=== PATIENT | female | born 1970 | race African-American/Black ===

== ENCOUNTER 2018-09-14 00:45 | Emergency (ER) | payer BC, OTHER ==
[2018-09-14 02:28] LABS: Urine Bacteria <20 /HPF (<20); Urine Culture Reflex Order REFLEXED; Urine RBC <5 /HPF (NONE SEEN)
[2018-09-14 02:29] LABS: Urine Blood NEGATIVE (NEG); Urine Glucose NEGATIVE (NEG); Urine Protein NEGATIVE (NEG); Urine Specific Gravity 1.025 (1.005-1.030)
--- NOTE | 2018-09-14 02:34 | EDPHYS ---
Physician Documentation [facility] Name: Melissa Man Age: 48 yrs Sex: Female : 1970 Arrival Date: 09/14/2018 Time: 00:52 Bed 20 Private MD: ED Physician Jama Conteh HPI: 09/14 01:15 This 48 yrs old Black Female presents to ER via Ambulatory with complaints of Urinary cp Problem. 01:15 The patient presents with urinary symptoms, dysuria, vaginal discharge, that is white cp discharge. 01:15 Onset: The symptoms/episode began/occurred 3 day(s) ago. Associated signs and symptoms: cp Pertinent positives: suprapubic pain, Pertinent negatives: constipation, diarrhea, fever, hematuria, vaginal bleeding. Severity of symptoms: in the emergency department the symptoms are unchanged, despite home interventions. 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 - Social history:: Smoking status: Patient/guardian denies using tobacco, Patient/guardian denies using street drugs, IV drugs. - Ebola Screening: : Patient negative for fever greater than or equal to 101.5 degrees Fahrenheit, and additional compatible Ebola Virus Disease symptoms Patient denies exposure to infectious person Patient denies travel to an Ebola-affected area in the 21 days before illness onset. ROS: 01:20 Constitutional: Negative for body aches, chills, fever, poor PO intake. cp 01:20 Eyes: Negative for injury, pain, redness, and discharge. cp 01:20 ENT: Negative for drainage from ear(s), ear pain, sore throat, difficulty swallowing, difficulty handling secretions. 01:20 Cardiovascular: Negative for chest pain. 01:20 Respiratory: Negative for cough. 01:20 Abdomen/GI: Positive for abdominal pain, of the suprapubic area, Negative for nausea, vomiting, and diarrhea, constipation, black/tarry stool, rectal bleeding. 01:20 Back: Negative for pain at rest, pain with movement. 01:20 : Positive for burning with urination, vaginal discharge, Negative for flank pain, vaginal bleeding. 01:20 All other systems are negative. Exam: 01:30 Constitutional: The patient appears in no acute distress, alert, awake, non-toxic, well cp developed, well nourished. 01:30 Head/Face: Normocephalic, atraumatic. cp 01:30 Eyes: Periorbital structures: appear normal, Conjunctiva: normal, no exudate, no injection, Lids and lashes: appear normal, bilaterally. 01:30 ENT: External ear(s): are unremarkable, Nose: is normal, Mouth: is normal. 01:30 Chest/axilla: Inspection: normal. 01:30 Cardiovascular: Rate: normal. 01:30 Respiratory: the patient does not display signs of respiratory distress. 01:30 Abdomen/GI: Inspection: abdomen appears normal. 01:30 Back: pain, is absent. Vital Signs: 01:20 BP 127 / 90; Pulse 75; Resp 16 S; Temp 98.8(O); Pulse Ox 100% on R/A; Weight 68.04 kg ao (R); Height 5 ft. 0 in. (152.40 cm); Pain 5/10; 02:51 BP 123 / 87; Pulse 72; Resp 18; Pulse Ox 100% on R/A; ao 01:20 Body Mass Index 29.29 (68.04 kg, 152.40 cm) ao MDM: 01:07 Patient medically screened. cp 02:33 Data reviewed: vital signs, nurses notes, lab test result(s), urinalysis. cp 02:33 Differential diagnosis: UTI, pyelonephritis, vaginitis. Counseling: I had a detailed cp discussion with the patient and/or guardian regarding: the historical points, exam findings, and any diagnostic results supporting the discharge/admit diagnosis, lab results, to return to the emergency department if symptoms worsen or persist or if there are any questions or concerns that arise at home. 09/14 01:16 Order name: Urine Microscopic Only; Complete Time: 02:32 ao 09/14 02:32 Interpretation: Normal except: UWBC 5-10. cp 09/14 01:18 Order name: Urine Dipstick--Ancillary (enter results); Complete Time: 02:32 mw2 09/14 01:18 Order name: Urine --Ancillary (enter results); Complete Time: 02:32 mw2 09/14 02:33 Order name: Urine Culture EDOH 09/14 01:08 Order name: Urine Dipstick-Ancillary (obtain specimen); Complete Time: 01:27 cp 09/14 01:08 Order name: Urine Test (obtain specimen); Complete Time: 01:27 cp Administered Medications: 02:47 Drug: Bactrim (160 mg-800 mg (DS) 1 tablet Route: PO; ao 02:53 Follow up: Response: No adverse reaction ao Disposition: 09/14/18 02:33 Discharged to Home. Impression: Urinary tract infection, site not specified. - Condition is Stable. - Discharge Instructions: Urinary Tract Infection, Adult. - Prescriptions for Pyridium 200 mg Oral Tablet - take 1 tablet by ORAL route every 8 hours for 2 days; 6 tablet. Bactrim DS 800- 160 mg Oral Tablet - take 1 tablet by ORAL route every 12 hours for 3 days; 6 tablet. - Medication Reconciliation Form, Thank You Letter, Antibiotic Education, Prescription Opioid Use, Work release form form. - Follow up: Private Physician; When: 2 - 3 days; Reason: Worsening of condition. - Problem is new. - Symptoms are unchanged. Signatures: Dispatcher [employer] EDOH Ramonita, ELADIA Martinez cp, Alex RN RN ao Corrections: (The following items were deleted from the chart) 02:33 01:20 UA MICROSCOPIC+U.LAB.BRZ ordered. [facility] EDOH 02:53 02:33 09/14/2018 02:33 Discharged to Home. Impression: Urinary tract infection, site ao not specified. Condition is Stable. Forms are Medication Reconciliation Form, Thank You Letter, Antibiotic Education, Prescription Opioid Use. Follow up: Private Physician; When: 2 - 3 days; Reason: Worsening of condition. Problem is new. Symptoms are unchanged. cp
--- NOTE | 2018-09-14 02:34 | ER ---
Nurse's Notes [facility] Name: Melissa Man Age: 48 yrs Sex: Female : 1970 Arrival Date: 09/14/2018 Time: 00:52 Bed 20 Private MD: Diagnosis: Urinary tract infection, site not specified Presentation: 09/14 01:18 Presenting complaint: Patient states: Had UTI in the past and report similar symptoms. ao Patient report urinary frequency, burning and white discharge. Transition of care: patient was not received from another setting of care. Onset of symptoms is unknown. Risk Assessment: Do you want to hurt yourself or someone else? Patient reports no desire to harm self or others. Initial Sepsis Screen: Does the patient meet any 2 criteria? No. Patient's initial sepsis screen is negative. Does the patient have a suspected source of infection? No. Patient's initial sepsis screen is negative. Care prior to arrival: None. 01:18 Method Of Arrival: Ambulatory ao 01:18 Acuity: LISETTE 4 ao ON CALL: 01:20 LMP N/A - Irregular menses ao Historical: - Allergies: 01:23 PENICILLINS; ao - Home Meds: 01:23 None [Active]; ao - PMHx: 01:23 UTI; Hypothyroidism; Fatty liver; ao - PSHx: 01:23 ; ao - Immunization history:: Adult Immunizations unknown. - Social history:: Smoking status: Patient/guardian denies using tobacco, Patient/guardian denies using street drugs, IV drugs. - Ebola Screening: : Patient negative for fever greater than or equal to 101.5 degrees Fahrenheit, and additional compatible Ebola Virus Disease symptoms Patient denies exposure to infectious person Patient denies travel to an Ebola-affected area in the 21 days before illness onset. Screenin:24 Abuse screen: Denies threats or abuse. Denies injuries from another. Nutritional ao screening: No deficits noted. Tuberculosis screening: No symptoms or risk factors identified. Fall Risk None identified. Assessment: 01:24 General: Appears in no apparent distress. comfortable, Behavior is calm, cooperative, ao appropriate for age. Pain: Complains of pain in abdomen. Neuro: Level of Consciousness is awake, alert, obeys commands, Oriented to person, place, time, situation, Appropriate for age Moves all extremities. Full function. Cardiovascular: Capillary refill Patient's skin is warm and dry. Respiratory: Airway is patent Respiratory effort is even, unlabored, Respiratory pattern is regular, symmetrical. GI: Abdomen is non-distended. : Reports burning with urination, pain urgency, urinary frequency, vaginal itching. EENT: No signs and/or symptoms were reported regarding the EENT system. Derm: No signs and/or symptoms reported regarding the dermatologic system. Musculoskeletal: No signs and/or symptoms reported regarding the musculoskeletal system. 02:19 Reassessment: Patient appears in no apparent distress at this time. Patient and/or ao family updated on plan of care and expected duration. Pain level reassessed. Waiting on urine microscopic. 02:51 Reassessment: Dc instructions given to patient. Patient agree with the POC and to ao follow up. Vital Signs: 01:20 BP 127 / 90; Pulse 75; Resp 16 S; Temp 98.8(O); Pulse Ox 100% on R/A; Weight 68.04 kg ao (R); Height 5 ft. 0 in. (152.40 cm); Pain 5/10; 02:51 BP 123 / 87; Pulse 72; Resp 18; Pulse Ox 100% on R/A; ao 01:20 Body Mass Index 29.29 (68.04 kg, 152.40 cm) ao ED Course: 00:52 Patient arrived in ED. es 01:05 Juan Shipman PA is PHCP. cp 01:05 Jama Conteh MD is Attending Physician. cp 01:16 Gunnar Rivera, SAMUEL is Primary Nurse. ao 01:20 Triage completed. ao 01:24 Arm band placed on right wrist. Patient placed in an exam room, on a stretcher, on ao air sampling and monitoring, Patient notified of wait time. 01:24 Patient has correct armband on for positive identification. Pulse ox on. NIBP on. ao 01:27 Urine Microscopic Only Sent. ao 02:52 No provider procedures requiring assistance completed. Patient did not have IV access ao during this emergency room visit. Administered Medications: 02:47 Drug: Bactrim (160 mg-800 mg (DS) 1 tablet Route: PO; ao 02:53 Follow up: Response: No adverse reaction ao Outcome: 02:33 Discharge ordered by . cp 02:52 Discharged to home ambulatory. ao 02:52 Condition: stable 02:52 Discharge instructions given to patient, Instructed on discharge instructions, follow up and referral plans. Demonstrated understanding of instructions, follow-up care, medications. 02:53 Patient left the ED. ao Signatures: Brandi Cao Corey, PA PA cp Ortiz, Alex, RN RN ao
[2018-09-14] MEDS ORDERED: SMZ./TMP. 800/160 MG TABLET ONE (02:59)
== END 2018-09-14 02:53 | disposition home or self-care (01) ==
LOC: ER 00:45
DX: N39.0 Urinary tract infection, site not specified (principal); E03.9 Hypothyroidism, unspecified; Z88.0 Allergy status to penicillin
CPT/HCPCS: 81003; 81015; 81025; 87086; 87088; 99283

== ENCOUNTER 2019-11-25 17:22 | Emergency (ER) | payer OTHER, SELFPAY ==
--- OUTSIDE RECORDS SUMMARY | 2019-11-25 17:25 | XMS REPORT | Summary of Care ---
:1970 Author Organization [facility] Address [address] [place] [address] Care Team Providers Name Role Phone Arik Rossi MD Primary Care Provider Reason for Visit Reason Comments Assessment Encounter Details Date Type Department Care Team Description 09/20/2019 Telephone [facility] Pediatric and Arik De Oliveira MD Assessment Adult Primary Care- [address] [place] [address] [place] [address], [phone] [address] [place] [address] Allergies Active Allergy Reactions Severity Noted Date Comments Nitrofurantoin Other - See comments 05/27/2018 Sever e myalgias Monohyd/M-Cryst Penicillins Hives 07/23/2015 documented as of this encounter (statuses as of 09/21/2019) Medications Medication Sig Dispensed Refills Start Date End Date Status levothyroxine 75 mcg Take 1 tablet by 90 tablet 1 07/05/2019 Active tabletIndications: mouth every Acquired hypothyroidism morning. documented as of this encounter (statuses as of 09/21/2019) Active Problems Problem Noted Date ALYCIA (obstructive sleep apnea) 07/08/2018 Arthritis of lumbar spine 06/28/2018 Screening for colorectal cancer 06/11/2018 Overview: Added automatically from request for sanjiv duffy [id number] Chronic insomnia 06/06/2018 Need for hepatitis A and B vaccination 06/02/2018 Overview: Schedule: 0, 1, and 6 months; Angelo shook diagnosis code: Fatty liver K76.0 Abnormal SPEP 06/02/2018 Hypercholesterolemia 05/05/2018 Obesity (BMI 30-39.9) 05/05/2018 History of Graves' disease 04/09/2018 Palpitations 04/09/2018 Prediabetes Postablative hypothyroidism Abnormal liver function tests Fatty liver Overview: "very mild" per Radiology report 04/2018 documented as of this encounter (statuses as of 09/21/2019) Immunizations Name Administration Dates Next Due TDAP 02/16/2015 documented as of this encounter Social History Tobacco Use Types Packs/Day Years Used Date Never Smoker Smokeless Tobacco: Never Used Alcohol Use Drinks/Week oz/Week Comments No Sex Assigned at Date Recorded Not on file documented as of this encounter Last Filed Vital Signs Not on filedocumented in this encounter Miscellaneous Notes Telephone Encounter - Qiana Sánchez - 09/21/2019 3:49 PM CDTCalled patient this morning Telephone Encounter - Saniya Swartz MA - 09/20/2019 3:08 PM CDT09/20/19 3:08 PM Routing to correct clinic. Saniya Swartz MA 09/20/2019 3:08 PM elephone Encounter - Lorene Gaffney - 09/20/2019 2:50 PM CDTPatient stating would like to speak with Dr. Rossi regarding her thyroid. Pt Schedule appointment. documented in this encounter Plan of Treatment Date Type Specialty Care Team Description 10/04/2019 Office Visit Family Medicine Hu Rossi MD [address] [place] [address] [phone] Health Maintenance Due Date Last Done Comments Depression Screening 1984 Breast Cancer Screening 06/08/2019 06/07/2018 (MAMMOGRAM) INFLUENZA VACCINE (#1) 2019 PAP SMEAR 05/31/2021 05/31/2018 Colorectal Cancer Screening 2022 DTaP,Tdap,and Td Vaccines (2 - Td) 02/16/2025 02/16/2015 PNEUMOCOCCAL 0-64 YEARS COMBINED Aged Out No longer eligible based on SERIES patient's age to complete this topic documented as of this encounter Results Not on filedocumented in this encounter
--- OUTSIDE RECORDS SUMMARY | 2019-11-25 17:26 | XMS REPORT | Summary of Care ---
:1970 Author Organization [facility] Address [address] [place] [address] Care Team Providers Name Role Phone Arik Rossi MD Primary Care Provider Encounter Details Date Type Department Care Team Description 09/22/2019 Patient Secure [facility] Pediatric Ariela Rossi, and Adult Primary Care- MD Laura [facility] [address] [place] [address], [address] [address] [place] [address] [phone] Allergies Active Allergy Reactions Severity Noted Date Comments Nitrofurantoin Other - See comments 05/27/2018 Sever e myalgias Monohyd/M-Cryst Penicillins Hives 07/23/2015 documented as of this encounter (statuses as of 09/23/2019) Medications Medication Sig Dispensed Refills Start Date End Date Status levothyroxine 75 mcg Take 1 tablet by 90 tablet 1 07/05/2019 Active tabletIndications: mouth every Acquired hypothyroidism morning. documented as of this encounter (statuses as of 09/23/2019) Active Problems Problem Noted Date ALYCIA (obstructive sleep apnea) 07/08/2018 Arthritis of lumbar spine 06/28/2018 Screening for colorectal cancer 06/11/2018 Overview: Added automatically from request for sanjiv duffy [id number] Chronic insomnia 06/06/2018 Need for hepatitis A and B vaccination 06/02/2018 Overview: Schedule: 0, 1, and 6 months; Additiona l diagnosis code: Fatty liver K76.0 Abnormal SPEP 06/02/2018 Hypercholesterolemia 05/05/2018 Obesity (BMI 30-39.9) 05/05/2018 History of Graves' disease 04/09/2018 Palpitations 04/09/2018 Prediabetes Postablative hypothyroidism Abnormal liver function tests Fatty liver Overview: "very mild" per Radiology report 04/2018 documented as of this encounter (statuses as of 09/23/2019) Immunizations Name Administration Dates Next Due TDAP 02/16/2015 documented as of this encounter Social History Tobacco Use Types Packs/Day Years Used Date Never Smoker Smokeless Tobacco: Never Used Alcohol Use Drinks/Week oz/Week Comments No Sex Assigned at Date Recorded Not on file documented as of this encounter Last Filed Vital Signs Not on filedocumented in this encounter Miscellaneous Notes Telephone Encounter - Valentina Oconnell - 09/23/2019 11:03 AM CDTLVMTRC to assist in scheduling patient with urgent care. elephone Encounter - Arik Rossi MD - 09/22/2019 11:59 AM CDTOffer urgent care appointment. documented in this encounter Plan of Treatment Date Type Specialty Care Team Description 10/04/2019 Office Visit Family Medicine Hu Rossi MD [address] [place] [phone] Health Maintenance Due Date Last Done [...]
--- NOTE | 2019-11-25 18:21 | EDPHYS ---
Physician Documentation [facility] Name: Melissa Man Age: 49 yrs Sex: Female : 1970 Arrival Date: 11/25/2019 Time: 17:26 Bed 14 Private MD: ED Physician Juan Lundberg HPI: 11/24 18:13 This 49 yrs old Black Female presents to ER via Ambulatory with complaints of Foreign kamaljit body In Vagina. 18:13 The patient presents with pelvic pain, possible retained tampoon. Onset: The kamaljit symptoms/episode began/occurred today. Modifying factors: The symptoms are alleviated by nothing, the symptoms are aggravated by nothing. Associated signs and symptoms: The patient has no apparent associated signs or symptoms. Severity of symptoms: At their worst the symptoms were mild, in the emergency department the symptoms are unchanged. The patient is sexually active. Historical: - Allergies: 17:43 PENICILLINS; ll1 - PMHx: 17:43 Hypothyroidism; fatty liver; UTI; ll1 - PSHx: 17:43 ; ll1 - Immunization history:: Flu vaccine is not up to date. - Social history:: Smoking status: Patient denies any tobacco usage or history of. - Family history:: not pertinent. ROS: 18:13 Constitutional: Negative for fever, chills, and weight loss, Eyes: Negative for injury, kamaljit pain, redness, and discharge, ENT: Negative for injury, pain, and discharge, Neck: Negative for injury, pain, and swelling, Cardiovascular: Negative for chest pain, palpitations, and edema, Respiratory: Negative for shortness of breath, cough, wheezing, and pleuritic chest pain, Abdomen/GI: Negative for abdominal pain, nausea, vomiting, diarrhea, and constipation, Back: Negative for injury and pain, MS/Extremity: Negative for injury and deformity, Skin: Negative for injury, rash, and discoloration, Neuro: Negative for headache, weakness, numbness, tingling, and seizure, Psych: Negative for depression, anxiety, suicide ideation, homicidal ideation, and hallucinations, Allergy/Immunology: Negative for hives, rash, and allergies, Endocrine: Negative for neck swelling, polydipsia, polyuria, polyphagia, and marked weight changes. 18:13 : Positive for pelvic pain. Exam: 18:13 Constitutional: This is a well developed, well nourished patient who is awake, alert, kamaljit and in no acute distress. Head/Face: Normocephalic, atraumatic. Eyes: Pupils equal round and reactive to light, extra-ocular motions intact. Lids and lashes normal. Conjunctiva and sclera are non-icteric and not injected. Cornea within normal limits. Periorbital areas with no swelling, redness, or edema. ENT: Nares patent. No nasal discharge, no septal abnormalities noted. Tympanic membranes are normal and external auditory canals are clear. Oropharynx with no redness, swelling, or masses, exudates, or evidence of obstruction, uvula midline. Mucous membranes moist. Neck: Trachea midline, no thyromegaly or masses palpated, and no cervical lymphadenopathy. Supple, full range of motion without nuchal rigidity, or vertebral point tenderness. No Meningismus. Chest/axilla: Normal chest wall appearance and motion. Nontender with no deformity. No lesions are appreciated. Cardiovascular: Regular rate and rhythm with a normal S1 and S2. No gallops, murmurs, or rubs. Normal PMI, no JVD. No pulse deficits. Respiratory: Lungs have equal breath sounds bilaterally, clear to auscultation and percussion. No rales, rhonchi or wheezes noted. No increased work of breathing, no retractions or nasal flaring. Abdomen/GI: Soft, non-tender, with normal bowel sounds. No distension or tympany. No guarding or rebound. No evidence of tenderness throughout. Back: No spinal tenderness. No costovertebral tenderness. Full range of motion. Pelvic Exam: Normal external genitalia. Speculum exam with closed cervical os, no discharge or bleeding noted. Bimanual exam with normal adnexa, no adnexal or cervical motion tenderness. Normal uterus. Skin: Warm, dry with normal turgor. Normal color with no rashes, no lesions, and no evidence of cellulitis. MS/ Extremity: Pulses equal, no cyanosis. Neurovascular intact. Full, normal range of motion. Neuro: Awake and alert, GCS 15, oriented to person, place, time, and situation. Cranial nerves II-XII grossly intact. Motor strength 5/5 in all extremities. Sensory grossly intact. Cerebellar exam normal. Normal gait. Psych: Awake, alert, with orientation to person, place and time. Behavior, mood, and affect are within normal limits. 18:13 : CVA tenderness, is absent, Pelvic Exam: External exam: is normal, Speculum exam: normal findings, no bleeding is noted, bimanual exam reveals normal findings, no cervical motion tenderness, os that is closed, Bladder: is normal, non-distended, non-tender. Vital Signs: 17:42 BP 122 / 92; Pulse 63; Resp 17; Temp 97.9; Pulse Ox 100% ; Weight 68.04 kg; Height 5 ll1 ft. 1 in. (154.94 cm); Pain 4/10; 17:42 Body Mass Index 28.34 (68.04 kg, 154.94 cm) ll1 MDM: 17:54 Patient medically screened. kamaljit 18:16 Differential diagnosis: kidney stone, nonspecific abdominal pain, urinary tract kamaljit infection. Data reviewed: vital signs, nurses notes, lab test result(s), urinalysis. Data interpreted: access rep: rate is 63 beats/min, rhythm is regular, Pulse oximetry: on room air is 100 %. Test interpretation: by ED physician or midlevel provider:. Counseling: I had a detailed discussion with the patient and/or guardian regarding: the historical points, exam findings, and any diagnostic results supporting the discharge/admit diagnosis. 11/24 18:12 Order name: Urine Dipstick-Ancillary (obtain specimen); Complete Time: 18:20 [facility] 11/24 18:12 Order name: Urine Test (obtain specimen); Complete Time: 18:20 [facility] 11/24 18:21 Order name: Urine Dipstick--Ancillary (enter results) 11/24 18:21 Order name: Urine --Ancillary (enter results) 11/24 18:12 Order name: Pelvic Exam Setup; Complete Time: 18:20 [facility] Administered Medications: No medications were administered Disposition: 11/25/19 18:20 Discharged to Home. Impression: Pelvic and perineal pain, Postmenopausal bleeding. - Condition is Stable. - Discharge Instructions: Pelvic Pain, Female, Pelvic Pain, Female, [id number]. - Prescriptions for Bactrim DS 800- 160 mg Oral Tablet - take 1 tablet by ORAL route every 12 hours for 7 days; 14 tablet. - Medication Reconciliation Form, Thank You Letter, Antibiotic Education, Prescription Opioid Use form. - Follow up: Private Physician; When: 2 - 3 days; Reason: Recheck today's complaints, Continuance of care, Re-evaluation by your physician. Follow up: Jennifer Salmeron; When: 2 - 3 days; Reason: Recheck today's complaints, Re-evaluation by your physician. - Problem is new. - Symptoms have improved. Signatures: Dispatcher [employer] [facility] Juan Lundberg MD MD cha Smirch, Shelby RN RN ss Ko Rayo RN RN ll1 Corrections: (The following items were deleted from the chart) 18:23 18:19 Urine Culture ordered. [facility] 18:43 18:20 11/25/2019 18:20 Discharged to Home. Impression: Pelvic and perineal pain; ss Postmenopausal bleeding. Condition is Stable. Discharge Instructions: Pelvic Pain, Female, Pelvic Pain, Female, [id number]. Prescriptions for Bactrim DS 800-160 mg Oral Tablet - take 1 tablet by ORAL route every 12 hours for 7 days; 14 tablet. and Forms are Medication Reconciliation Form, Thank You Letter, Antibiotic Education, Prescription Opioid Use. Follow up: Private Physician; When: 2 - 3 days; Reason: Recheck today's complaints, Continuance of care, Re-evaluation by your physician. Follow up: Jennifer Salmeron; When: 2 - 3 days; Reason: Recheck today's complaints, Re-evaluation by your physician. Problem is new. Symptoms have improved. kamaljit
--- NOTE | 2019-11-25 18:21 | ER ---
Nurse's Notes [facility] Name: Melissa Man Age: 49 yrs Sex: Female : 1970 Arrival Date: 11/25/2019 Time: 17:26 Bed 14 Private MD: Diagnosis: Pelvic and perineal pain;Postmenopausal bleeding Presentation: 11/24 17:42 Chief complaint: Patient states: Tampon stuck in vagina for 2 days. Slight pelvic pain ll1 today. Coronavirus screen: Client denies travel out of the [place] in the last 14 days. At this time, the client does not indicate any symptoms associated with coronavirus-19. The client reports previous COVID testing was negative. Ebola Screen: Patient denies travel to an Ebola-affected area in the 21 days before illness onset. Initial Sepsis Screen: Does the patient meet any 2 criteria? No. Patient's initial sepsis screen is negative. Does the patient have a suspected source of infection? Yes: Other: vaginal FB. Risk Assessment: Do you want to hurt yourself or someone else? Patient reports no desire to harm self or others. Onset of symptoms was November 24, 2019. 17:42 Method Of Arrival: Ambulatory ll1 17:42 Acuity: LISETTE 4 ll1 Historical: - Allergies: 17:43 PENICILLINS; ll1 - PMHx: 17:43 Hypothyroidism; fatty liver; UTI; ll1 - PSHx: 17:43 ; ll1 - Immunization history:: Flu vaccine is not up to date. - Social history:: Smoking status: Patient denies any tobacco usage or history of. - Family history:: not pertinent. Screenin:03 Abuse screen: Denies threats or abuse. Denies injuries from another. Nutritional ss screening: No deficits noted. Tuberculosis screening: Never had TB. Fall Risk None identified. Assessment: 18:04 General: Appears in no apparent distress. comfortable, Behavior is cooperative, ss anxious, Denies fever, feeling ill, fatigue, chills. Pain: Complains of pain in suprapubic area Pain currently is 4 out of 10 on a pain scale. Quality of pain is described as aching, Pain began 2-3 days ago. Is continuous. Neuro: Level of Consciousness is awake, alert, obeys commands, Oriented to person, place, time, situation. Cardiovascular: Capillary refill < 3 seconds is brisk in bilateral fingers. Respiratory: Airway is patent Respiratory effort is even, unlabored, Respiratory pattern is regular, symmetrical. GI: Patient currently denies diarrhea, nausea, vomiting. : Denies burning with urination, urinary frequency. Derm: Skin is intact, is healthy with good turgor, Skin is dry, Skin is pink, warm \T\ dry. normal. Vital Signs: 17:42 BP 122 / 92; Pulse 63; Resp 17; Temp 97.9; Pulse Ox 100% ; Weight 68.04 kg; Height 5 ll1 ft. 1 in. (154.94 cm); Pain 4/10; 17:42 Body Mass Index 28.34 (68.04 kg, 154.94 cm) ll1 ED Course: 17:26 Patient arrived in ED. mr 17:43 Triage completed. ll1 17:44 Arm band placed on Patient placed in an exam room, on a stretcher. ll1 17:45 Juan Lundberg MD is Attending Physician. [email or web address] 18:03 Mercy Ojeda, SAMUEL is Primary Nurse. ss 18:03 Patient has correct armband on for positive identification. Bed in low position. Call ss light in reach. Warm blanket given. 18:03 Patient maintains SpO2 saturation greater than 95% on room air. ss 18:04 Assist provider with pelvic exam: Set up pelvic tray. Performed by Juan Lundberg MD ss Patient tolerated well. No foreign body noted to be retained in vaginal canal. 18:20 Jennifer Salmeron MD is Referral Physician. [facility] 18:42 Patient did not have IV access during this emergency room visit. ss Administered Medications: No medications were administered Outcome: 18:20 Discharge ordered by . [facility] 18:42 Discharged to home ambulatory. 18:42 Condition: good 18:42 Discharge instructions given to patient, family, Instructed on discharge instructions, follow up and referral plans. medication usage, Demonstrated understanding of instructions, follow-up care, medications, Prescriptions given X 1. 18:43 Patient left the ED. ss Signatures: Juan Lundberg MD MD cha Rivera, Mary mr Mercy Ojeda, SAMUEL RN Ko Rayo RN RN 1
[2019-11-25 18:31] LABS: Urine Blood TRACE (NEG); Urine Glucose NEGATIVE (NEG); Urine Protein NEGATIVE (NEG); Urine Specific Gravity >1.030 (1.005-1.030)
[2019-11-25 18:49] VITALS: BP 122/92; TEMP 97.9; O2SAT 100
== END 2019-11-25 18:43 | disposition home or self-care (01) ==
LOC: ER 17:22
DX: N95.0 Postmenopausal bleeding (principal); Z88.0 Allergy status to penicillin
CPT/HCPCS: 81003; 81025; 99284

== ENCOUNTER 2020-07-24 20:14 | Emergency (ER) | payer SELFPAY ==
--- NOTE | 2020-07-24 21:26 | ER ---
Nurse's Notes [facility] Name: Melissa Man Age: 50 yrs Sex: Female : 1970 Arrival Date: 07/24/2020 Time: 20:17 Bed 26 Private MD: Diagnosis: Viral Syndrome;Otitis Media, Left Presentation: 07/24 20:22 Chief complaint: Patient states: cough and congestion x 10 days. Now ears feels clogged ca1 x 3 - 4 days. Denies fever. Denies N/V/D. Denies loss of appetite. Coronavirus screen: Client denies travel out of the [place] in the last 14 days. congestion, cough unrelated to allergies, Client presents with at least one sign or symptom that may indicate coronavirus-19. Standard/surgical mask placed on the client. Provider contacted for isolation considerations. The client reports previous COVID testing was negative. Date of collection: July 17, 2020. Ebola Screen: Patient negative for fever greater than or equal to 101.5 degrees Fahrenheit, and additional compatible Ebola Virus Disease symptoms Patient denies exposure to infectious person. Patient denies travel to an Ebola-affected area in the 21 days before illness onset. No symptoms or risks identified at this time. Initial Sepsis Screen: Does the patient meet any 2 criteria? No. Patient's initial sepsis screen is negative. Does the patient have a suspected source of infection? No. Patient's initial sepsis screen is negative. Risk Assessment: Do you want to hurt yourself or someone else? Patient reports no desire to harm self or others. Onset of symptoms was July 24, 2020. 20:22 Method Of Arrival: Ambulatory ca1 20:22 Acuity: LISETTE 3 ca1 HYDRAULIC SPINNER: 20:24 LMP N/A - Post-menopause ca1 Historical: - Allergies: 20:24 PENICILLINS; ca1 - Home Meds: 20:24 levothyroxine 75 mcg tab 1 tab once daily [Active]; ca1 - PMHx: 20:24 fatty liver; Hypothyroidism; UTI; ca1 - PSHx: 20:24 ; ca1 - Immunization history:: Client reports having NOT received the Covid vaccine. Flu vaccine is not up to date. - Social history:: Smoking status: Patient denies any tobacco usage or history of. Screenin:29 Abuse screen: Denies threats or abuse. Nutritional screening: No deficits noted. ap3 Tuberculosis screening: No symptoms or risk factors identified. Fall Risk None identified. Assessment: 20:45 General: Appears in no apparent distress. comfortable, Behavior is calm, cooperative, ap3 appropriate for age. Pain: Denies pain. Neuro: Level of Consciousness is awake, alert, obeys commands, Oriented to person, place, time, situation, Gait is steady, Speech is normal. Cardiovascular: Denies chest pain, shortness of breath, Capillary refill < 3 seconds. Respiratory: Reports cough that is non-productive, Airway is patent Respiratory effort is even, unlabored, Respiratory pattern is regular, symmetrical. GI: No signs and/or symptoms were reported involving the gastrointestinal system. : No signs and/or symptoms were reported regarding the genitourinary system. EENT: Reports nasal congestion nasal discharge that her left ear feels clogged up. Derm: No signs and/or symptoms reported regarding the dermatologic system. Vital Signs: 20:22 BP 128 / 94; Pulse 85; Resp 16 S; Temp 98.6(O); Pulse Ox 100% on R/A; Weight 68.04 kg ca1 (R); Height 5 ft. 1 in. (154.94 cm) (R); Pain 0/10; 20:47 BP 116 / 84; Pulse 79; Resp 16; Pulse Ox 99% on R/A; Pain 0/10; ap3 21:22 BP 119 / 78; Pulse 67; Resp 17; Pulse Ox 100% on R/A; Pain 0/10; ap3 20:22 Body Mass Index 28.34 (68.04 kg, 154.94 cm) ca1 ED Course: 20:17 Patient arrived in ED. bp1 20:23 Triage completed. ca1 20:24 Arm band placed on right wrist. ca1 20:29 Yana Chirinos, SAMUEL is Primary Nurse. ap3 20:29 Patient has correct armband on for positive identification. Bed in low position. Call ap3 light in reach. Pulse ox on. NIBP on. Door closed. Noise minimized. 20:41 Christ Talavera MD is Attending Physician. mh7 21:12 ED physician to see patient. ap3 21:25 Promise Godinez MD is Referral Physician. mh7 21:40 No provider procedures requiring assistance completed. Patient did not have IV access ap3 during this emergency room visit. Administered Medications: 21:21 Drug: Zithromax (azithromycin) 500 mg Route: PO; ap3 21:41 Follow up: Response: No adverse reaction ap3 21:21 Drug: Tylenol 1000 mg Route: PO; ap3 21:41 Follow up: Response: No adverse reaction ap3 Outcome: 21:26 Discharge ordered by . 7 21:40 Discharged to home ambulatory. ap3 21:40 Condition: good 21:40 Discharge instructions given to patient, Instructed on discharge instructions, follow up and referral plans. medication usage, Demonstrated understanding of instructions, follow-up care, medications. 21:40 Patient left the ED. ap3 Signatures: Yana Chirinos RN RN ap3 Heaven Gan RN RN ca1 Lori Ibarra Maurice, MD MD 7 Corrections: (The following items were deleted from the chart) 20:26 20:22 Coronavirus screen: Client denies travel out of the [place] in the last 14 days. ca1 congestion, cough unrelated to allergies, Client presents with at least one sign or symptom that may indicate coronavirus-19. Standard/surgical mask placed on the client. Provider contacted for isolation considerations. The client reports previous COVID testing was negative. ca1
--- NOTE | 2020-07-24 21:26 | EDPHYS ---
Physician Documentation [facility] Name: Melissa Man Age: 50 yrs Sex: Female : 1970 Arrival Date: 07/24/2020 Time: 20:17 Bed 26 Private MD: ED Physician Christ Talavera HPI: 07/24 21:14 This 50 yrs old Black Female presents to ER via Ambulatory with complaints of Runny mh7 Nose, Cough, Clogged Ear. 21:14 The patient or guardian reports cough, that is intermittent, described as mild, with no mh7 sputum, congestion, runny nose, ear pain. Onset: The symptoms/episode began/occurred 10 day(s) ago. Severity of symptoms: At their worst the symptoms were mild, 5 day(s) ago, in the emergency department the symptoms are unchanged. Modifying factors: The symptoms are alleviated by nothing, the symptoms are aggravated by nothing. 21:20 Associated signs and symptoms: Pertinent positives: earache, rhinorrhea, Pertinent mh7 negatives: chest pain, diarrhea, fever, nausea, sore throat, vomiting. States that she has had a negative COVID test in the past week.. DIRECTOR STAGE: 20:24 LMP N/A - Post-menopause ca1 Historical: - Allergies: 20:24 PENICILLINS; ca1 - Home Meds: 20:24 levothyroxine 75 mcg tab 1 tab once daily [Active]; ca1 - PMHx: 20:24 fatty liver; Hypothyroidism; UTI; ca1 - PSHx: 20:24 ; ca1 - Immunization history:: Client reports having NOT received the Covid vaccine. Flu vaccine is not up to date. - Social history:: Smoking status: Patient denies any tobacco usage or history of. ROS: 21:20 Constitutional: Negative for fever, chills, and weight loss, Eyes: Negative for injury, mh7 pain, redness, and discharge, Neck: Negative for injury, pain, and swelling, Cardiovascular: Negative for chest pain, palpitations, and edema, Abdomen/GI: Negative for abdominal pain, nausea, vomiting, diarrhea, and constipation, Back: Negative for injury and pain, : Negative for injury, bleeding, discharge, and swelling, MS/Extremity: Negative for injury and deformity, Skin: Negative for injury, rash, and discoloration, Neuro: Negative for headache, weakness, numbness, tingling, and seizure, Psych: Negative for depression, anxiety, suicide ideation, homicidal ideation, and hallucinations, Allergy/Immunology: Negative for hives, rash, and allergies, Endocrine: Negative for neck swelling, polydipsia, polyuria, polyphagia, and marked weight changes, Hematologic/Lymphatic: Negative for swollen nodes, abnormal bleeding, and unusual bruising. Exam: 21:20 Constitutional: This is a well developed, well nourished patient who is awake, alert, mh7 and in no acute distress. Head/Face: Normocephalic, atraumatic. Eyes: Pupils equal round and reactive to light, extra-ocular motions intact. Lids and lashes normal. Conjunctiva and sclera are non-icteric and not injected. Cornea within normal limits. Periorbital areas with no swelling, redness, or edema. 21:20 Neck: Trachea midline, no thyromegaly or masses palpated, and no cervical lymphadenopathy. Supple, full range of motion without nuchal rigidity, or vertebral point tenderness. No Meningismus. Chest/axilla: Normal chest wall appearance and motion. Nontender with no deformity. No lesions are appreciated. Cardiovascular: Regular rate and rhythm with a normal S1 and S2. No gallops, murmurs, or rubs. Normal PMI, no JVD. No pulse deficits. Respiratory: Lungs have equal breath sounds bilaterally, clear to auscultation and percussion. No rales, rhonchi or wheezes noted. No increased work of breathing, no retractions or nasal flaring. 21:20 Abdomen/GI: Soft, non-tender, with normal bowel sounds. No distension or tympany. No guarding or rebound. No evidence of tenderness throughout. Back: No spinal tenderness. No costovertebral tenderness. Full range of motion. Skin: Warm, dry with normal turgor. Normal color with no rashes, no lesions, and no evidence of cellulitis. MS/ Extremity: Pulses equal, no cyanosis. Neurovascular intact. Full, normal range of motion. Neuro: Awake and alert, GCS 15, oriented to person, place, time, and situation. Cranial nerves II-XII grossly intact. Motor strength 5/5 in all extremities. Sensory grossly intact. Cerebellar exam normal. Normal gait. Psych: Awake, alert, with orientation to person, place and time. Behavior, mood, and affect are within normal limits. 21:20 ENT: External ear(s): are unremarkable, Ear canal(s): are normal, clear, TM's: bulging, is not appreciated, dullness, on the left, erythema, that is mild, on the left, fluid levels, on the left, hemotympanum, is not appreciated, loss of bony landmarks, is not appreciated, rupture, is not appreciated, Examination of the other ear shows no obvious abnormality, Nose: is normal, Mouth: is normal, Posterior pharynx: is normal, airway is patent, Dental exam: normal, Voice: is normal, Breath odor: is normal. Vital Signs: 20:22 BP 128 / 94; Pulse 85; Resp 16 S; Temp 98.6(O); Pulse Ox 100% on R/A; Weight 68.04 kg ca1 (R); Height 5 ft. 1 in. (154.94 cm) (R); Pain 0/10; 20:47 BP 116 / 84; Pulse 79; Resp 16; Pulse Ox 99% on R/A; Pain 0/10; ap3 21:22 BP 119 / 78; Pulse 67; Resp 17; Pulse Ox 100% on R/A; Pain 0/10; ap3 20:22 Body Mass Index 28.34 (68.04 kg, 154.94 cm) ca1 MDM: 21:20 Differential Diagnosis: Bronchitis Upper Respiratory Infection Sinusitis Otitis Media mh7 Allergic Rhinitis Viral Syndrome. Data reviewed: vital signs, nurses notes. Data interpreted: Pulse oximetry: on room air is 100 %. Interpretation: normal. Counseling: I had a detailed discussion with the patient and/or guardian regarding: the historical points, exam findings, and any diagnostic results supporting the discharge/admit diagnosis, the need for outpatient follow up, an ENT specialist, to return to the emergency department if symptoms worsen or persist or if there are any questions or concerns that arise at home. Response to treatment: the patient's symptoms have markedly improved after treatment. 21:26 Patient medically screened. [facility] Administered Medications: 21:21 Drug: Zithromax (azithromycin) 500 mg Route: PO; ap3 21:41 Follow up: Response: No adverse reaction ap3 21:21 Drug: Tylenol 1000 mg Route: PO; ap3 21:41 Follow up: Response: No adverse reaction ap3 Disposition: 07/24/20 21:26 Discharged to Home. Impression: Viral Syndrome, Otitis Media, Left. - Condition is Stable. - Discharge Instructions: Otitis Media, Adult, [id number], Viral Respiratory Infection, [id number]. - Prescriptions for Zithromax Z- Jeff 250 mg Oral Tablet - take 1 tablet by ORAL route as directed for 5 days Day 1 - take two (2) tablets one time. Day 2, 3, 4 , 5 take one (1) tablet once daily.; 6 tablet. - Medication Reconciliation Form, Thank You Letter, Antibiotic Education, Prescription Opioid Use form. - Follow up: Private Physician; When: 2 - 3 days; Reason: Worsening of condition, Recheck today's complaints, Continuance of care, Re-evaluation by your physician. Follow up: Promise Godinez MD; When: 2 - 3 days; Reason: Worsening of condition, Recheck today's complaints. - Problem is new. - Symptoms have improved. Signatures: Yana Chirinos RN RN ap3 Heaven stanley RN RN ca1 Christ Talavera MD MD mh7 Corrections: (The following items were deleted from the chart) 21:40 21:26 07/24/2020 21:26 Discharged to Home. Impression: Viral Syndrome; Otitis Media, ap3 Left. Condition is Stable. Forms are Medication Reconciliation Form, Thank You Letter, Antibiotic Education, Prescription Opioid Use. Follow up: Private Physician; When: 2 - 3 days; Reason: Worsening of condition, Recheck today's complaints, Continuance of care, Re-evaluation by your physician. Follow up: Promise Godinez; When: 2 - 3 days; Reason: Worsening of condition, Recheck today's complaints. Problem is new. Symptoms have improved. mh7
[2020-07-24] MEDS ORDERED: ACETAMINOPHEN 500 MG TAB ONE (21:38)
[2020-07-24] MEDS ORDERED: AZITHROMYCIN 250 MG TAB ONE (21:38)
[2020-07-24 21:53] VITALS: TEMP 98.6
[2020-07-24 22:01] VITALS: BP 119/78; O2SAT 100
== END 2020-07-24 21:40 | disposition home or self-care (01) ==
LOC: ER 20:14
DX: B34.9 Viral infection, unspecified (principal); H66.92 Otitis media, unspecified, left ear; E03.9 Hypothyroidism, unspecified; Z88.0 Allergy status to penicillin
CPT/HCPCS: 99283

== ENCOUNTER 2021-01-06 18:36 | Emergency (ER) | payer SELFPAY ==
[2021-01-06 20:47] LABS: Urine Blood Trace-intact (Negative); Urine Glucose Negative (Negative); Urine Protein Negative (Negative); Urine Specific Gravity >=1.030 (1.005-1.030)
[2021-01-06] MEDS ORDERED: HYDROCODONE/APAP 5/325 MG TAB ONE (21:31)
[2021-01-06] MEDS ORDERED: KETOROLAC 30 MG/ML INJ ONE (21:31)
--- NOTE | 2021-01-06 23:36 | ER ---
Nurse's Notes [facility] Name: Melissa Man Age: 50 yrs Sex: Female : 1970 Arrival Date: 01/06/2021 Time: 18:39 Bed 7 Private MD: Diagnosis: Costochondritis;UTI/ Urinary tract infection, site not specified Presentation: 01/06 19:12 Chief complaint: Patient states: Was putting baby into car seat and twisted back wrong vg1 and hit right side of ribs against car seat as well. States happened about 3 days ago. Denies any symptoms, shortness of breath or difficulty breathing. Coronavirus screen: Vaccine status: Patient reports receiving the 2nd dose of the covid vaccine. Client denies travel out of the [place] in the last 14 days. Ebola Screen: Patient negative for fever greater than or equal to 101.5 degrees Fahrenheit, and additional compatible Ebola Virus Disease symptoms. Initial Sepsis Screen: Does the patient meet any 2 criteria? No. Patient's initial sepsis screen is negative. Does the patient have a suspected source of infection? No. Patient's initial sepsis screen is negative. Risk Assessment: Do you want to hurt yourself or someone else? Patient reports no desire to harm self or others. Onset of symptoms was January 03, 2021. 19:12 Method Of Arrival: Ambulatory vg1 19:12 Acuity: LISETTE 4 vg1 Triage Assessment: 19:15 General: Appears in no apparent distress. uncomfortable, Behavior is calm, cooperative. vg1 Pain: Complains of pain in right lateral posterior chest Pain currently is 10 out of 10 on a pain scale. Musculoskeletal: Circulation, motion, and sensation intact. [employer] [place]: 19:15 LMP N/A - Post-menopause vg1 Historical: - Allergies: 19:15 PENICILLINS; vg1 - Home Meds: 19:15 levothyroxine 75 mcg tab 1 tab once daily [Active]; vg1 - PMHx: 19:15 fatty liver; Hypothyroidism; UTI; vg1 - Immunization history:: Client reports receiving the 2nd dose of the Covid vaccine, Flu vaccine is up to date. - Social history:: Smoking status: Patient denies any tobacco usage or history of. Screenin:02 Abuse screen: Denies threats or abuse. Denies injuries from another. Nutritional tw5 screening: No deficits noted. Tuberculosis screening: No symptoms or risk factors identified. Fall Risk None identified. Assessment: 21:02 General: Reports " I was putting my grandbaby in the car seat about I turned too fast tw5 and i hit my back on the car seat. It has been killing me for the past three days.". Pain: Complains of pain in right mid back Pain currently is 10 out of 10 on a pain scale. Neuro: Level of Consciousness is awake, alert, obeys commands, Oriented to person, place, time, situation. Cardiovascular: Reports None. Respiratory: Reports " It hurt to take a deep breath just now". Derm: Skin is intact, is healthy with good turgor. 21:39 Pain: Pain currently is 7 out of 10 on a pain scale. tw5 23:02 Reassessment: Patient states feeling better. Patient states symptoms have improved. tw5 Pain: Denies pain. Vital Signs: 19:12 BP 124 / 89; Pulse 80; Resp 16; Temp 97.7; Pulse Ox 100% ; Weight 70.31 kg; Height 5 vg1 ft. 1 in. (154.94 cm); Pain 10/10; 21:02 BP 127 / 95; Pulse 65; Resp 14; Pulse Ox 98% on R/A; Pain 10/10; tw5 21:39 BP 129 / 88; Pulse 75; Resp 14; Pulse Ox 100% on R/A; tw5 22:19 BP 124 / 84; Pulse 61; Resp 18; Pulse Ox 100% on R/A; Pain 0/10; df1 23:02 BP 122 / 94; Pulse 80; Resp 14; Pulse Ox 100% on R/A; Pain 0/10; tw5 23:02 Pain 0/10; tw5 19:12 Body Mass Index 29.29 (70.31 kg, 154.94 cm) vg1 ED Course: 18:39 Patient arrived in ED. mr 19:15 Triage completed. vg1 19:15 Arm band placed on. vg1 19:53 Bryce Cesar PA is PHCP. [facility] 19:53 Christ Talavera MD is Attending Physician. [facility] 21:02 Gabrielle Castro is Primary Nurse. tw5 21:02 No apparent distress. tw5 21:02 Patient has correct armband on for positive identification. Pulse ox on. NIBP on. Door tw5 closed. Noise minimized. Lights dimmed. Moved to private room. Warm blanket given. Verbal reassurance given. 22:03 No provider procedures requiring assistance completed. tw5 22:33 Chest Single View XRAY In Process Unspecified. EDMS Administered Medications: 21:29 CANCELLED (Physician Discretion): Ketorolac 30 mg IVP once tw5 21:39 Drug: [place] (HYDROcodone-acetaminophen) 5 mg-325 mg 1 tabs Route: PO; tw5 23:03 Follow up: Response: No adverse reaction; Pain is decreased; RASS: Alert and Calm (0) tw5 21:39 Drug: Ketorolac 30 mg Route: IM; Site: right ventrogluteal; tw5 23:02 Follow up: Pain 0/10 Adult; Response: No adverse reaction; Pain is decreased tw5 Outcome: 23:36 Discharge ordered by MD. lundberg 23:53 Patient left the ED. mw2 Signatures: Dispatcher [employer] EDMS Bryce Cesar PA PA jmm RiveraNyasia mr Hernandez, Zach mw2 Maricruz Patel, RN RN vg1 Jennifer Krishna df1 Gabrielle Castro tw5 Corrections: (The following items were deleted from the chart) 21:40 21:39 Pain: Pain currently is 10 out of 10 on a pain scale. tw5 tw5
--- NOTE | 2021-01-06 23:36 | EDPHYS ---
Physician Documentation [facility] Name: Melissa Man Age: 50 yrs Sex: Female : 1970 Arrival Date: 01/06/2021 Time: 18:39 Bed 7 Private MD: ED Physician Christ Talavera HPI: 01/06 20:48 This 50 yrs old Black Female presents to ER via Ambulatory with complaints of Back Pain.jmm 20:48 The patient presents with pain that is acute. Onset: The symptoms/episode jmm began/occurred acutely, 3 day(s) ago. The pain does not radiate. Associated signs and symptoms: Pertinent negatives: chest pain, weakness. Is a 50-year-old female with history of hypothyroidism, UTI that presents emerged department with complaints of right sided rib pain which occurred after bending over. Pain is worsened with deep inspiration. But denies shortness of breath.. 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 - Social history:: Smoking status: Patient denies any tobacco usage or history of. ROS: 20:48 Constitutional: Negative for fever, chills, and weight loss, Cardiovascular: Negative jmm for chest pain, palpitations, and edema, Respiratory: Negative for shortness of breath, cough, wheezing, and pleuritic chest pain. 20:48 Back: Positive for pain with movement. 20:48 All other systems are negative. Exam: 20:48 Constitutional: This is a well developed, well nourished patient who is awake, alert, jmm and in no acute distress. Head/Face: atraumatic. Eyes: EOMI, no conjunctival erythema appreciated ENT: Moist Mucus Membranes Neck: Trachea midline, Supple 20:48 Cardiovascular: Regular rate and rhythm. No edema appreciated Respiratory: Normal respirations, no respiratory distress appreciated Abdomen/GI: Non distended, soft 20:48 Chest/axilla: Right-sided rib pain on palpation. 20:48 Back: No midline tenderness appreciated. 20:48 Musculoskeletal/extremity: ROM: intact in all extremities. 20:48 Skin: Appearance: Color: normal in color. 20:48 Neuro: Orientation: is normal, Mentation: is normal, Memory: is normal. 20:48 Psych: Behavior/mood is pleasant, cooperative. Vital Signs: 19:12 BP 124 / 89; Pulse 80; Resp 16; Temp 97.7; Pulse Ox 100% ; Weight 70.31 kg; Height 5 vg1 ft. 1 in. (154.94 cm); Pain 10/10; 21:02 BP 127 / 95; Pulse 65; Resp 14; Pulse Ox 98% on R/A; Pain 10/10; tw5 21:39 BP 129 / 88; Pulse 75; Resp 14; Pulse Ox 100% on R/A; tw5 22:19 BP 124 / 84; Pulse 61; Resp 18; Pulse Ox 100% on R/A; Pain 0/10; df1 23:02 BP 122 / 94; Pulse 80; Resp 14; Pulse Ox 100% on R/A; Pain 0/10; tw5 23:02 Pain 0/10; tw5 19:12 Body Mass Index 29.29 (70.31 kg, 154.94 cm) vg1 MDM: 21:10 Patient medically screened. tamika 23:34 Data reviewed: vital signs, nurses notes. Counseling: I had a detailed discussion with tamika the patient and/or guardian regarding: the historical points, exam findings, and any diagnostic results supporting the discharge/admit diagnosis, lab results, radiology results, the need for outpatient follow up, to return to the emergency department if symptoms worsen or persist or if there are any questions or concerns that arise at home. ED course: Patient is alert and nontoxic in appearance, pain most likely musculoskeletal. Will treat with muscle relaxers. Patient has a UTI also questionable groundglass opacity in the right lung base. Will treat with oral antibiotics. Patient otherwise given strict return precautions. Patient understood agrees plan of care.. 01/06 20:48 Order name: Urine Dipstick-Ancillary; Complete Time: 21:11 EDMS 01/06 21:11 Order name: Chest Single View XRAY [facility] Administered Medications: 21:29 CANCELLED (Physician Discretion): Ketorolac 30 mg IVP once tw5 21:39 Drug: Eden (HYDROcodone-acetaminophen) 5 mg-325 mg 1 tabs Route: PO; tw5 23:03 Follow up: Response: No adverse reaction; Pain is decreased; RASS: Alert and Calm (0) tw5 21:39 Drug: Ketorolac 30 mg Route: IM; Site: right ventrogluteal; tw5 23:02 Follow up: Pain 0/10 Adult; Response: No adverse reaction; Pain is decreased tw5 Disposition: 01/07 06:05 Co-signature as Attending Physician, Christ Talavera MD. 7 Disposition Summary: 01/06/21 23:36 Discharge Ordered Location: Home [facility] Condition: Stable [facility] Diagnosis - Costochondritis [facility] - UTI/ Urinary tract infection, site not specified [facility] Followup: [facility] - With: Private Physician - When: 2 - 3 days - Reason: Recheck today's complaints, Continuance of care, Re-evaluation by your physician Discharge Instructions: - Discharge Summary Sheet [facility] - Costochondritis [facility] - Urinary Tract Infection, Adult [facility] Forms: - Medication Reconciliation Form [facility] - Thank You Letter [facility] - Antibiotic Education [facility] - Prescription Opioid Use [facility] Prescriptions: - cefdinir 300 mg Oral capsule - take 1 capsule by ORAL route every 12 hours for 10 days; 20 capsule; Refills: [facility] 0, Product Selection Permitted - orphenadrine citrate 100 mg Oral Tablet Sustained Release - take 1 tablet by ORAL route 2 times per day As needed; 20 tablet; Refills: 0, [facility] Product Selection Permitted Signatures: Dispatcher [employer] EDBryce Vasquez PA PA [facility] Maricruz Patel RN RN 1 Christ Talavera MD MD 7 Gabrielle Castro tw5 Corrections: (The following items were deleted from the chart) 01/06 21:29 21:10 Ketorolac 30 mg IVP once ordered. [facility] tw5
[2021-01-07 00:29] VITALS: TEMP 97.7
[2021-01-07 00:35] VITALS: O2SAT 100
[2021-01-07 00:38] VITALS: BP 122/94
--- NOTE | 2021-01-07 12:43 | RAD REPORT ---
EXAM DESCRIPTION: Chest Single View [facility]: XR CHEST 1 VIEW CLINICAL HISTORY: Right sided chest pain. COMPARISON: None. TECHNIQUE: Single view AP chest radiograph(s). FINDINGS: Trace perihilar interstitial thickening. Questionable small groundglass opacity in the rig ht lung base. No pleural effusion. No pneumothorax. Nonenlarged cardiomediastinal silhouette. No sign ificant osseous abnormality. IMPRESSION: Questionable small groundglass opacity in the right lung base. Trace perihilar interstit ial thickening. Electronically signed by: Cally Heath MD 01/06/2021 10:57 PM [employer] DES[employer] Due to temporary technical issues with the PACS/Fluency reporting system, reports are being signed by the in house radiologist without review as a courtesy to ensure prompt reporting. The interpreting r adiologist is fully responsible for the content of the report.
== END 2021-01-06 23:53 | disposition home or self-care (01) ==
LOC: ER 18:36
DX: M94.0 Chondrocostal junction syndrome [Tietze] (principal); N39.0 Urinary tract infection, site not specified; E03.9 Hypothyroidism, unspecified; Z88.0 Allergy status to penicillin
CPT/HCPCS: 71045; 81003; 96372; 99284

== ENCOUNTER 2022-04-10 21:51 | Emergency (ER) | payer SELFPAY ==
--- OUTSIDE RECORDS SUMMARY | 2022-04-10 21:54 | XMS REPORT | Continuity of Care Document ---
:1970 Author Organization [facility] t Address [address] [place] [address] Care Team Providers Name Role Phone GENIE CARDOZO Primary Care Physician Unavailable JULIANNE RAYO Attending Clinician Unavailable GENIE CARDOZO Attending Clinician Unavailable MANUELA PEDERSEN Attending Clinician Unavailable IRENA AGUILAR Attending Clinician Unavailable EDWIN MEDRANO Attending Clinician Unavailable Genie Williamson Attending Clinician MELODY HEWITT Attending Clinician Unavailable Arik Villatoro MD Attending Clinician BLANCA SANTIAGO Attending Clinician Unavailable Blanca Zuniga Attending Clinician Manuela Pedersen MD Attending Clinician Julianne Rayo MD Attending Clinician Doctor Unassigned, [place] Attending Clinician Unavailable ANGY BOTELLO Attending Clinician Unavailable ARIK VILLATORO Attending Clinician Unavailable Lab, Ang - Db Attending Clinician Unavailable MELVIN BROWNE Attending Clinician Unavailable JULIANNE RAYO Admitting Clinician Unavailable Julianne Rayo MD Admitting Clinician Payers Payer Name Policy Type Policy Number Effective Date Expiration Date S ource [facility] [id number] 2021 OUT OF STATE 00:00:00 [facility] [id number] 2018 GLOBAL 00:00:00 Problems Condition Condition Condition Status Onset Resolution Last Treating Co mments Source Name Details Category Date Date Treatment Clinician Date Vitamin D Vitamin D Disease Active Uni vers deficiency deficiency 1-24 it y of 00:00: [place] 00 Medical Branch ALYCIA ALYCIA Disease Active Univers (obstructi (obstructi 5-23 it y of ve sleep ve sleep 00:00: [place] apnea) apnea) 00 Medical Branch Arthritis Arthritis Disease Active Uni vers of lumbar of lumbar 5-13 ity of spine spine 00:00: [place] [facility] Screening Screening Disease Active Overview: Univers for for 4-26 Formattin ity of colorectal colorectal 00:00: g of this [place] cancer cancer 00 note Medical might be Branch different from the original. Added automatic ally from request for surgery [id number] Chronic Chronic Disease Active Univers insomnia insomnia 4-21 ity of 00:00: [place] [facility] Need for Need for Disease Active Overview: Un salazar hepatitis hepatitis 4-17 Formattin i ty of A and B A and B 00:00: g of this [place] vaccinatio vaccinatio 00 note Me dical n n might be Branch different from the original. Schedule: 0, 1, and 6 months; Additiona l diagnosis code: Fatty liver K76.0 Hyperchole Hyperchole Disease Active U nivers sterolemia sterolemia 3-20 it y of 00:00: [place] 00 Medical Branch Obesity Obesity Disease Active Univers (BMI (BMI 3-20 ity of 30-39.9) 30-39.9) 00:00: [place] [facility] History of History of Disease Active U nivers Graves' Graves' 2-22 ity of disease disease 00:00: [place] [address] Medical Branch Palpitatio Palpitatio Disease Active U nivers ns ns 2-22 ity of 00:00: [place] 00 Medical Branch Prediabete Prediabete Disease Active U nivers s s ity of [facility] Branch Postablati Postablati Disease Active U nivers ve ve ity of [place]ro[place]ro[place] dism dism Medical Branch Abnormal Abnormal Disease Active Unive rs liver liver ity of function function [place] tests tests Medical Branch Fatty Fatty Disease Active Overview: Univer s liver liver Formattin ity of g of this [place] note Medical might be Branch different from the original. "very mild" per Radiology report 04/2018 Allergies, Adverse Reactions, Alerts Allergy Allergy Status Severity Reaction(s) Onset Inactive Treating Comm ents Source Name Type Date Date Clinician NITROFUR DRUG Active Other-Cmnt Univ ers ANTOIN 4-11 ity of MONOHYD/ 00:00: [place] M-CRYST 00 Medical Branch Nitrofur Propensi Active Other - See Severe U nivers antoin ty to comments 4-11 myalgias ity of Monohyd/ adverse 00:00: [place] M-Cryst reaction 00 Medical s Branch Penicill Propensi Active Hives Univer s ins ty to 6-06 ity of adverse 00:00: [place] reaction 00 Medical s Branch PENICILL Drug Active Hives Univers INS Class 6-06 ity of 00:00: [place] 00 Medical Branch Penicill Propensi Active Hives Univer s ins ty to 6-06 ity of adverse 00:00: [place] reaction 00 Medical s Branch Social History Social Habit Start Date Stop Date Quantity Comments Source Exposure to 2022-02-24 2022-03-06 Not sure [facility] SARS-CoV-2 00:00:00 06:30:00 [facility] (event) Branch Tobacco use and 2022-03-06 2022-03-06 Smokeless tobacco Un iversity of exposure 00:00:00 00:00:00 non-user [facility] [place] [facility] Alcohol intake 2022-03-06 2022-03-06 Current University 00:00:00 00:00:00 non-drinker of [facility] alcohol (finding) Branch Sex [birth year] Universit y of 00:00:00 00:00:00 [facility] [place] [facility] Smoking Status Start Date Stop Date Source Never smoked tobacco [facility] Medications Ordered Filled Start Stop Current Ordering Indication Dosage Frequency Signature Comments Components Source Medication Medication Date Date Medication? Clinician (SIG) Name Name levothyroxi Yes [id number] 50ug Take 1 Univers ne 1-19 tablet by ity of (SYNTHROID) 00:00: mouth [place] 50 mcg 00 every Medical tablet morning. Branch BRAND MEDICALLY NECESSARY. Discontinu e levothyrox ine 75mcg. ergocalcife Yes [id number] Take 1 Univers rol, 1-19 capsule by ity of vitamin d2, 00:00: mouth [place] 1,250 mcg 00 weekly. Medical (50,000 Take with Branch unit) food. capsule fluticasone Yes [id number] 1{spray Use 1 Univers propionate 1-19 } [place] in ity o f 50 00:00: each [place] mcg/actuati 00 nostril in Me dical on nasal the Branch spray morning. levocetiriz Yes [id number] 5mg Take 1 Univers ine 5 mg 1-19 tablet by ity of tablet 00:00: mouth [place] 00 every Medical evening. Branch montelukast Yes [id number] 10mg Take 1 Univers 10 mg 1-19 tablet by ity of tablet 00:00: mouth in [place] 00 the Medical morning. Branch levothyroxi Yes [id number] 50ug Take 1 Univers ne 1-19 tablet by ity of (SYNTHROID) 00:00: mouth [place] 50 mcg 00 every Medical tablet morning. Branch BRAND MEDICALLY NECESSARY. Discontinu e levothyrox ine 75mcg. ergocalcife Yes [id number] Take 1 Univers rol, 1-19 capsule by ity of vitamin d2, 00:00: mouth [place] 1,250 mcg 00 weekly. Medical (50,000 Take with Branch unit) food. capsule fluticasone Yes [id number] 1{spray Use 1 Univers propionate 1-19 } [place] in ity o f 50 00:00: each [place] mcg/actuati 00 nostril in Me dical on nasal the Branch spray morning. levocetiriz Yes [id number] 5mg Take 1 Univers ine 5 mg 1-19 tablet by ity of tablet 00:00: mouth [place] 00 every Medical evening. Branch montelukast 0 Yes [id number] 10mg Take 1 Univers 10 mg 1-19 tablet by ity of tablet 00:00: mouth in [place] 00 the Medical morning. Branch EUTHYROX 75 0 Yes [id number] TAKE 1 Univers mcg tablet 8-09 TABLET BY ity of 00:00: MOUTH ONCE [place] 00 DAILY IN Medical THE Branch MORNING EUTHYROX 75 2021-0 2023- No [id number] TAKE 1 Univers mcg tablet 09-24 TABLET BY ity of 00:00: 00:00 MOUTH ONCE [place] 00 :00 DAILY IN Medical THE Branch MORNING EUTHYROX 75 2022- No [id number] TAKE 1 Univers mcg tablet 09-24 TABLET BY ity of 00:00: 00:00 MOUTH ONCE [place] 00 :00 DAILY IN Medical THE Branch MORNING estradiol-n 2021- No [id number] 1{patch Apply 1 Univers orethindron 4-28 04-27 } Patch to ity of e 0.05-0.25 00:00: 00:00 skin 2 Jarod as mg/24 hr 00 :00 (two) Medical patch times per Branch week. sulfamethox Yes [id number] 1{tbl} Take 1 Univers azole-trime 4-27 tablet by ity of thoprim 00:00: mouth 2 [place] (BACTRIM) 00 (two) Medical 400-80 mg times Branch per tablet daily. Estradiol-N Yes [id number] 1{tbl} Take 1 Univers orethindron 4-27 tablet by ity of e Acet 00:00: mouth [place] (ACTIVELLA) 00 daily. Medica l 0.5-0.1 mg Branch tablet sulfamethox Yes [id number] 1{tbl} Take 1 Univers azole-trime 4-27 tablet by ity of thoprim 00:00: mouth 2 [place] (BACTRIM) 00 (two) Medical 400-80 mg times Branch per tablet daily. Estradiol-N Yes [id number] 1{tbl} Take 1 Univers orethindron 4-27 tablet by ity of e Acet 00:00: mouth [place] (ACTIVELLA) 00 daily. Medica l 0.5-0.1 mg Branch tablet sulfamethox Yes [id number] 1{tbl} Take 1 Univers azole-trime 4-27 tablet by ity of thoprim 00:00: mouth 2 [place] (BACTRIM) 00 (two) Medical 400-80 mg times Branch per tablet daily. Estradiol-N Yes [id number] 1{tbl} Take 1 Univers orethindron 4-27 tablet by ity of e Acet 00:00: mouth [place] (ACTIVELLA) 00 daily. Medica l 0.5-0.1 mg Branch tablet sulfamethox 0 Yes [id number] 1{tbl} Take 1 Univers azole-trime 4-27 tablet by ity of thoprim 00:00: mouth 2 [place] (BACTRIM) 00 (two) Medical 400-80 mg times Branch per tablet daily. Estradiol-N 0 Yes [id number] 1{tbl} Take 1 Univers orethindron 4-27 tablet by ity of e Acet 00:00: mouth [place] (ACTIVELLA) 00 daily. Medica l 0.5-0.1 mg Branch tablet ergocalcife 0 Yes [id number] Take 1 Univers rol, 1-24 capsule by ity of vitamin d2, 00:00: mouth [place] 1,250 mcg 00 weekly. Medical (50,000 Take with Branch unit) food. capsule SYNTHROID Yes [id number] 50ug Take 1 U nivers 50 mcg 1-24 tablet by ity of tablet 00:00: mouth [place] 00 every Medical morning. Branch BRAND MEDICALLY NECESSARY. Discontinu e levothyrox ine 75mcg. ergocalcife 0 Yes [id number] Take 1 Univers rol, 1-24 capsule by ity of vitamin d2, 00:00: mouth [place] 1,250 mcg 00 weekly. Medical (50,000 Take with Branch unit) food. capsule SYNTHROID 0 Yes [id number] 50ug Take 1 U nivers 50 mcg 1-24 tablet by ity of tablet 00:00: mouth [place] 00 every Medical morning. Branch BRAND MEDICALLY NECESSARY. Discontinu e levothyrox ine 75mcg. ergocalcife 0 3- No [id number] Take 1 Univers rol, 1-24 -19 capsule by ity of vitamin d2, 00:00: 00:00 [place] 1,250 [place]cg 00 :00 weekly. Medical (50,000 Take with Branch unit) food. capsule SYNTHROID 0 3- No [id number] 50ug Take 1 Univers 50 mcg 1-24 -19 tablet by ity of tablet 00:00: 00:00 mouth [place] 00 :00 every Medical morning. Branch BRAND MEDICALLY NECESSARY. Discontinu e levothyrox ine 75mcg. ergocalcife 2022- No [id number] Take 1 Univers rol, 03-11 capsule by ity of vitamin d2, 00:00: 00:00 [place] 1,250 mcg 00 :00 weekly. Medical (50,000 Take with Branch unit) food. capsule SYNTHROID 2022- No [id number] 50ug Take 1 Univers 50 mcg 03-11 tablet by ity of tablet 00:00: 00:00 mouth [place] 00 :00 every Medical morning. Branch BRAND MEDICALLY NECESSARY. Discontinu e levothyrox ine 75mcg. Immunizations Ordered Filled Immunization Date Status Comments Sour e Immunization Name Name SARS-COV-2 COVID-19 2021-03-06 Completed Unive rsity of MODERNA VACCINE 00:00:00 [facility] SARS-COV-2 COVID-19 2021-03-06 Completed Unive rsity of MODERNA VACCINE 00:00:00 [facility] SARS-COV-2 COVID-19 2021-03-06 Completed Unive rsity of MODERNA 12+ YRS 00:00:[address] [facility] [place] [place] SARS-COV-2 COVID-19 2021-03-06 Completed Unive rsity of MODERNA 12+ YRS 00:00:[address] [facility] [place] Influenza Virus 2020-11-16 Completed Universit y of Vaccine 00:00:00 [facility] [place] [facility] Influenza Virus 2020-11-16 Completed Universit y of Vaccine 00:00:00 [facility] [place] [facility] Influenza Virus 2020-11-16 Completed Universit y of Vaccine 00:00:00 [facility] [place] [facility] Influenza Virus 2020-11-16 Completed Universit y of Vaccine 00:00:00 [facility] [place] [facility] SARS-COV-2 COVID-19 2020-09-03 Completed Unive rsity of MODERNA VACCINE 00:00:00 [facility] SARS-COV-2 COVID-19 2020-09-03 Completed Unive rsity of MODERNA VACCINE 00:00:00 [facility] SARS-COV-2 COVID-19 2020-09-03 Completed Unive rsity of MODERNA 12+ YRS 00:00:00 [place] Med ical VACCINE Branch SARS-COV-2 COVID-19 2020-09-03 Completed Unive rsity of MODERNA 12+ YRS 00:00:00 [facility] [place] [facility] ical VACCINE Branch SARS-COV-2 COVID-19 2020-07-30 Completed Unive rsity of MODERNA VACCINE 00:00:00 [facility] [place] [facility] ical Branch SARS-COV-2 COVID-19 2020-07-30 Completed Unive rsity of MODERNA VACCINE 00:00:00 [facility] [place] [facility] ical Branch SARS-COV-2 COVID-19 2020-07-30 Completed Unive rsity of MODERNA 12+ YRS 00:00:00 [facility] [place] [facility] ical VACCINE Branch SARS-COV-2 COVID-19 2020-07-30 Completed Unive rsity of MODERNA 12+ YRS 00:00:00 [facility] [place] [facility] ical VACCINE Branch TDAP 2015-02-16 Completed University of 00:00:00 [facility] [place] [facility] TDAP 2015-02-16 Completed University of 00:00:00 [facility] [place] [facility] TDAP 2015-02-16 Completed University of 00:00:00 [facility] [place] [facility] TDAP 2015-02-16 Completed University of 00:00:00 [facility] [place] [facility] Vital Signs Vital Name Observation Time Observation Value Comments Source Systolic blood 2022-03-06 15:59:00 121 mm[Hg] Univer sity of pressure [facility] [place] [facility] Diastolic blood 2022-03-06 15:59:00 82 mm[Hg] Unive rsity of pressure [facility] Heart rate 2022-03-06 15:59:00 75 /min [facility] Body temperature 2022-03-06 15:59:00 36.94 Stacy [facility] Body height 2022-03-06 15:59:00 152.4 cm [facility] Body weight 2022-03-06 15:59:00 78.019 kg [facility] BMI 2022-03-06 15:59:00 33.59 kg/m2 [facility] Oxygen saturation in 2022-03-06 15:59:00 99 /min [facility] Arterial blood by [facility] Pulse oximetry Branch Systolic blood 2021-06-12 19:16:00 135 mm[Hg] Univer sity of pressure [facility] [place] [facility] Diastolic blood 2021-06-12 19:16:00 87 mm[Hg] Unive rsity of pressure [facility] Heart rate 2021-06-12 19:16:00 69 /min Universi ty [facility] Body temperature 2021-06-12 19:16:00 36.83 [facility]acy [facility] Body weight 2021-06-12 19:16:00 74.481 kg Universi ty [facility] BMI 2021-06-12 19:16:00 31.04 kg/m2 Universi ty [facility] Systolic blood 2021-06-12 19:16:00 135 mm[Hg] Univer sity of [facility] Diastolic blood 2021-06-12 19:16:00 87 mm[Hg] [facility] Heart rate 2021-06-12 19:16:00 69 /min Universi ty [facility] Body temperature 2021-06-12 19:16:00 36.83 Stacy [facility] Body weight 2021-06-12 19:16:00 74.481 kg Universi ty [facility] BMI 2021-06-12 19:16:00 31.04 kg/m2 [facility] Procedures Procedure Date / Time Performed Performing Clinician Sour e URINE CULTURE 2021-06-12 19:20:00 Manuela Pedersen [facility] POCT URINALYSIS W/O 2021-06-12 00:00:[address] [facility] SPECIFIC [facility] Encounters Start End Encounter Admission Attending Care Care Encounter Source Date/Time Date/Time Type Type Clinicians Facility Department ID 2021-06-11 Outpatient Randy RAYO [facility] VINNIE [id number] Univers 16:01:16 JULIANNE hammond [facility] 2022-09-05 2022-09-05 Outpatient Randy CARDOZO [facility] [id number] Univers 09:30:00 09:30:00 GENIE hammond [facility] 2022-04-16 2022-04-16 Outpatient Randy CARDOZO [facility] [id number] Univers 00:00:00 00:00:00 GENIE hammond [facility] 2022-03-28 2022-03-28 Outpatient Randy PEDERSEN [facility] [id number] Univers 10:30:00 10:30:00 MANUELA hammond [facility] 2022-03-07 2022-03-07 Outpatient R LAUREN, [facility] [id number] Univers 13:00:00 13:00:00 IRENA hammond [facility] 2022-03-06 2022-03-06 Outpatient R MARCELA [facility] [id number] Univers 10:45:00 10:45:00 , EDWIN torres [facility] 2022-03-06 2022-03-06 Outpatient R CONCEPCIONGERI, [facility] [id number] Univers 10:00:00 10:36:13 GENIE hammond [facility] 2022-03-06 2022-03-06 [facility] [id number] Univers 10:00:00 10:36:13 Visit Genie HEALTH [id number] it y of [place] [id number] Jarod as ERNESTINA?BLEA [phone] [address] OFFICE [facility] 2021-12-12 2021-12-12 [facility] [id number] Univers 15:00:00 15:00:00 MANUELA hammond [facility] 2021-10-01 2021-10-01 [facility] [id number] Univers 13:00:00 13:00:00 MELODY brian [facility] 2021-09-24 2021-09-24 [facility] [id number] Univers 13:20:00 13:20:00 MELODY [facility] 2021-09-24 2021-09-24 [facility] [id number] Univers 00:00:00 00:00:00 Wondiful A HEALTH [id number] ity of [place] [id number] Jarod as ERNESTINA?BLEA [phone] [address] MEDICAL OFFICE [facility] 2021-07-12 2021-07-12 Outpatient R [facility] [id number] Univers 08:00:00 08:17:17 BLANCA hammond o f [facility] 2021-07-12 2021-07-12 Office Santiago, [facility] [id number] Univers 08:00:00 08:17:17 Visit Blanca [place] [id number] ity of [facility] [id number] [phone] Dc dical NAL 188 [facility] 2021-06-17 2021-06-17 [facility] [id number] Univers 00:00:00 00:00:00 (Out) Manuela Rowan VALER[place] [id number] ity [place] [id number] [place] [phone] Dc dical NAL 134 [facility] 2021-06-14 2021-06-14 Outpatient R [facility] VINNIE [id number] Univers 08:07:00 11:38:00 JULIANNE itbrian of [facility] 2021-06-14 2021-06-14 [facility] [id number] Univers 08:07:00 11:38:00 Encounter Julianne [place] [id number] ity [id number] [id number] [facility] [address] [place] 2021-06-14 2021-06-14 Surgery [facility] [id number] Univers 09:21:00 10:11:00 Julianne [place] [id number] i ty of [place] [id number] SUR[place]ICAL [id number] [facility] [address] [place] 2021-06-14 2021-06-14 Orders Doctor ARREAGA [id number] Univers 00:00:00 00:00:00 Only Unassigned, CAMELIA [id number] ity of [place] [facility] [id number] Jarod as [id number] [facility] [address] [place] 2021-06-12 2021-06-12 Outpatient R ADUM, [facility] [id number] Univers 14:00:00 14:45:20 MANUELA ity [facility] 2021-06-12 2021-06-12 Office Adum, [facility] [id number] Univers 14:00:00 14:45:20 Visit Manuela [place] [id number] ity [place] [id number] [id number] Dc dic[address] 2021-06-12 2021-06-12 Outpatient R ADUM, [facility] [id number] Univers 14:00:00 14:45:20 MANUELA ity [facility] 2021-06-12 2021-06-12 Office Adum, [facility] [id number] Univers 14:00:00 14:45:20 Visit Manuela [place] [id number] ity of [facility] [id number] [place] [id number] Dc dic[address] 2021-06-12 2021-06-12 Outpatient R ADUM, [facility] [id number] Univers 14:00:00 14:45:20 MANUELA ity [facility] 2021-06-12 2021-06-12 Telephone Adum, [facility] [id number] Univers 00:00:00 00:00:00 Manuela [place] [id number] ity of [place] [id number] [id number] Dc dic[address] 2021-06-04 2021-06-04 Outpatient R ADUM, [facility] [id number] Univers 13:30:00 13:30:00 MANUELA ity [facility] 2021-05-07 2021-05-07 Outpatient R ADUM, [facility] [id number] Univers 13:30:00 13:30:00 MANUELA ity [facility] 2021-05-07 2021-05-07 Outpatient R ADUM, [facility] [id number] Univers 13:30:00 13:30:00 MANUELACORIN hammond [facility] 2021-05-02 2021-05-02 Prep For [facility] [id number] Univers 00:00:00 00:00:00 Surgery Julianne SHINLUMA [id number] i ty [place] [id number] [id number] Dc dical [address] 2021-04-30 2021-04-30 [facility] [id number] Univers 13:30:00 14:41:12 JULIANNE hammond [facility] 2021-04-30 2021-04-30 Office [facility] [id number] [place] [facility] 13:30:00 14:41:12 Visit Julianne [place] [id number] i ty [place] [id number] [phone] Dc dical NAL [address] [place] [address] 2021-04-30 2021-04-30 Orders Doctor WHITLEY [id number] Univers 00:00:00 00:00:00 Only Unassigned, CAMELIA [id number] ity of [place] [facility] [id number] Jarod as [id number] [address] 2021-04-30 2021-04-30 Telephone [facility] [id number] Univers 00:00:00 00:00:00 Julianne [place] [id number] i ty of [place] [id number] [phone] Dc dical NAL [address] [place] [address] 2021-04-30 2021-04-30 Letter [facility] [id number] Univers 00:00:00 00:00:00 (Out) Julianne [place] [id number] i ty of [place] [id number] PROF[place] [id number] Dc dical NAL [address] [place] [address] 2021-04-10 2021-04-10 Telephone [facility] [id number] Univers 00:00:00 00:00:00 Manuela [place] [id number] ity [id number] [id number] Dc dical NAL 134 [facility] 2021-04-05 2021-04-05 Outpatient R [facility] [id number] Univers 10:15:00 10:15:00 ity of [facility] 2021-04-05 2021-04-05 Outpatient R ROSMERY, [facility] [id number] Univers 10:15:00 10:15:00 ANGY ity [facility] 2021-03-26 2021-03-26 Outpatient R FUNMI, [facility] [id number] Univers 10:30:00 11:17:39 MANUELA ity [facility] 2021-03-26 2021-03-26 Office [facility] 1..[id number] Univers 10:30:00 11:17:39 Visit Manuela Rowan VALER[place] [id number] it[place] [id number] [id number] Dc dical NAL 134 [facility] 2021-03-26 2021-03-26 Outpatient R FUNMI, [facility] [id number] Univers 10:30:00 11:17:39 MANUELA hammond [facility] 2021-03-18 2021-03-18 [facility] [id number] Univers 00:00:00 00:00:00 WONDIFUL ity o f [facility] 2021-03-11 2021-03-11 [facility] [id number] Univers 00:00:00 00:00:00 Management Wondiful A HEALTH [id number] ity of [place] [id number] Jarod as ERNESTINA?BLEA [phone] Dc dical KNEY 044 [facility] 2021-03-06 2021-03-06 [facility] [id number] Univers 00:00:00 00:00:00 Wondiful A HEALTH [id number] ity of [place] [id number] Jarod as ERNESTINA?BLEA [phone] [facility] [address] MEDICAL OFFICE [facility] 2021-03-01 2021-03-01 Case Irving [facility] [id number] Univers 00:00:00 00:00:00 Management Wondiful A HEALTH [id number] ity of [place] [id number] Jarod as ERNESTINA?BLEA [phone] [address] OFFICE [facility] 2021-02-28 2021-02-28 Hand Was[facility] Lab, Ang - Db [facility] [id number] Univers 17:00:00 17:15:00 Visit Arik Villatoro A [facility] [id number] 0 ity of [place] [id number] Jarod as ERNESTINA?BLEA [phone] [facility] [address] MEDICAL OFFICE [facility] 2021-02-28 2021-02-28 Office Irving [facility] [id number] Univers 16:15:00 16:22:42 Visit Wonvenkateshful A HE[facility] [id number] ity of [place] [id number] Jarod as ERNESTINA?BLEA [phone] [address] MEDICAL OFFICE [facility] 2021-02-28 2021-02-28 Outpatient R IRVING [facility] [id number] Univers 16:15:00 16:22:42 WONDIFUL ity o f [facility] 2021-02-28 2021-02-28 Outpatient R IRVING [facility] [id number] Univers 16:15:00 16:22:42 WONDIFUL ity o f [facility] 2021-02-28 2021-02-28 Orders Doctor ARREAGA [id number] Univers 00:00:00 00:00:00 Only Unassigned, CAMELIA [id number] ity of [place] [facility] [id number] Jarod as [phone] [address] 2020-04-06 2020-04-06 Outpatient R IRVING [facility] [id number] Univers 16:15:00 16:15:00 WONDIFUL ity o f [facility] 2020-04-02 2020-04-02 Outpatient R IRVING [facility] [id number] Univers 15:45:00 15:45:00 WONDIFUL ity o f [facility] 2020-03-23 2020-03-23 Outpatient R IRVING [facility] [id number] Univers 15:30:00 15:30:00 WONDIFUL ity o f [facility] 2020-02-23 2020-02-23 Outpatient R IRVING [facility] [id number] Univers 10:45:00 10:45:00 WONDIFUL ity o f [facility] 2020-02-13 2020-02-13 Outpatient R IRVING [facility] [id number] Univers 13:15:00 13:15:00 WONDIFUL ity o f [facility] 2019-12-26 2019-12-26 Outpatient R IRVING [facility] [id number] Univers 11:15:00 11:15:00 WONDIFUL ity o f [facility] 2019-10-04 2019-10-04 Outpatient R IRVING [facility] [id number] Univers 16:00:00 16:00:00 WONDIFUL ity o f [facility] 2019-08-15 2019-08-15 Outpatient R JOSHUA [facility] [id number] Univers 17:40:00 17:40:00 GENIE brian [facility] 2019-07-29 2019-07-29 Outpatient R HOLLIE [facility] [id number] Univers 14:00:00 14:00:00 MELVIN [facility] 2019-06-01 2019-06-01 Outpatient R HOLLIE [facility] [id number] Univers 08:30:00 08:30:00 MELVIN brian [facility] 2019-05-26 2019-05-26 Outpatient R IRVING, [facility] [id number] Univers 09:05:00 09:05:00 WONDIFUL ity o f [facility] 2019-05-16 2019-05-16 Outpatient Randy VILLATORO [facility] [id number] Univers 07:45:00 07:45:00 WONDIFUL ity o f [facility] 2019-05-12 2019-05-12 Outpatient Randy VILLATORO [facility] [id number] Univers 08:15:00 08:15:00 WONDIFUL ity o f [facility] 2019-05-05 2019-05-05 Outpatient Randy VILLATORO [facility] [id number] Univers 15:45:00 15:45:00 WONDIFUL ity o [facility] Results Test Description Test Time Test Comments Results Result Comments Source POCT URINALYSIS W/O SPECIFIC GRAVITY 2021-06-12 19:17:00 Test Item Value Reference Range Interpretation Comme nts POCT PH U (test code = 3254) 7 mg/dl 5-8 POCT U LEUK EST (test code = 3263) Trace Negative - Negative POCT U NIT (test code = 3262) + Negative - Negative POCT U PROT (test code = 3259) Negative Negative - Negative POCT U GLU (test code = 3256) normal Negative - Negative POCT U KETONE (test code = 3258) Negative Negative - Negative POCT U BLD (test code = 3257) Trace Negative - Negative [facility]
[2022-04-11] MEDS ORDERED: FLUORESCEIN SODIUM 1 MG/WRAP ONE (00:52)
[2022-04-11] MEDS ORDERED: TETRACAINE HCL 0.5% 4ML OPTH ONE (00:52)
--- NOTE | 2022-04-11 01:03 | EDPHYS ---
Physician Documentation [facility] Name: Melissa Man Age: 51 yrs Sex: Female : 1970 Arrival Date: 04/10/2022 Time: 21:57 Bed 11 Private MD: ED Physician Aldo Jang HPI: 04/10 23:15 This 51 yrs old Black Female presents to ER via Ambulatory with complaints of Eye cp Problem. 23:15 The patient is experiencing foreign body sensation, matting or discharge, pain, to both cp eyes, caused by an unknown mechanism. 23:15 Onset: The symptoms/episode began/occurred gradually. Duration: the symptoms are cp continuous. Patient presents to ED with c/o matting and discharge of eyes upon awakening for past 1-2 weeks. Patient reports foreign body sensation medial aspect of left eye. 23:15 Patient reading glasses. cp 23:15 Associated signs and symptoms: Pertinent negatives: dizziness, ear ache, fever, cp headache. 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 - Social history:: Smoking status: Patient denies any tobacco usage or history of. ROS: 23:20 Constitutional: Negative for body aches, chills, fever, poor PO intake. cp 23:20 Eyes: Positive for foreign body sensation, pain. cp 23:20 ENT: Negative for drainage from ear(s), ear pain, sore throat, difficulty swallowing, difficulty handling secretions. 23:20 Respiratory: Negative for cough, shortness of breath, wheezing. 23:20 Abdomen/GI: Negative for abdominal pain, nausea, vomiting, and diarrhea. 23:20 Skin: Negative for cellulitis, rash. 23:20 Neuro: Negative for altered mental status, headache, weakness. 23:20 All other systems are negative. Exam: 23:25 Head/Face: Normocephalic, atraumatic. cp 23:25 Constitutional: The patient appears in no acute distress, alert, awake, comfortable, non-toxic, well developed, well nourished. 23:25 Eyes: Periorbital structures: appear normal, Pupils: equal, round, and reactive to light and accomodation, Extraocular movements: intact throughout, Conjunctiva: mild redness. Corneas: abrasion, is not appreciated, foreign body, is not appreciated, a fluorescein strip employed to appreciate the findings, Lids and lashes: appear normal, bilaterally. 23:25 ENT: External ear(s): are unremarkable, Nose: is normal, Mouth: Lips: moist, Oral mucosa: pink and intact, moist, Posterior pharynx: Airway: no evidence of obstruction, patent. 23:25 Neck: ROM/movement: is normal, is supple, without pain, no range of motions limitations, Lymph nodes: no appreciated lymphadenopathy. 23:25 Chest/axilla: Inspection: normal. 23:25 Cardiovascular: Rate: normal. 23:25 Respiratory: the patient does not display signs of respiratory distress, Respirations: normal. 23:25 Skin: cellulitis, is not appreciated, no rash present. Vital Signs: 22:21 BP 125 / 97; Pulse 85; Resp 18; Temp 98.6; Pulse Ox 100% ; Weight 72.12 kg; Height 5 tw5 ft. 5 in. (165.10 cm); Pain 3/10; 22:21 Body Mass Index 26.46 (72.12 kg, 165.10 cm) tw5 MDM: 22:29 Patient medically screened. 23:30 Differential diagnosis: Corneal abrasion of left eye. Foreign body in left eye. Acute cp iritis of both eyes. Infectious conjunctivitis in both eyes. 04/11 01:02 Data reviewed: vital signs, nurses notes. 01:02 I considered the following discharge prescriptions or medication management in the emergency department Medications were administered in the Emergency Department. See MAR. Counseling: I had a detailed discussion with the patient and/or guardian regarding: the historical points, exam findings, and any diagnostic results supporting the discharge/admit diagnosis, the need for outpatient follow up, an opthalmologist, to return to the emergency department if symptoms worsen or persist or if there are any questions or concerns that arise at home. Response to treatment: the patient's symptoms have mildly improved after treatment, and as a result, I will discharge patient. 04/10 23:02 Order name: Eye Tray; Complete Time: 00:54 04/10 23:02 Order name: Fluoresene Opth strip; Complete Time: 00:54 cp 04/10 23:02 Order name: Visual Acuity; Complete Time: 00:50 cp Administered Medications: 00:00 Drug: Tetracaine Drops 0.5 % 1 drops Route: Ophthalmic; Site: both eyes; vc1 01:04 Drug: Gentamicin Drops 0.3 % 1 drops Route: Ophthalmic; Site: both eyes; vc1 Disposition Summary: 04/11/22 01:03 Discharge Ordered Location: Home cp Problem: new cp Symptoms: have improved cp Condition: Stable cp Diagnosis - Other conjunctivitis - bilateral cp Followup: cp - With: Private Physician - When: Today - Reason: Recheck today's complaints Discharge Instructions: - Discharge Summary Sheet cp - Bacterial Conjunctivitis, Adult cp Forms: - Medication Reconciliation Form cp - Thank You Letter cp - Antibiotic Education cp - Prescription Opioid Use cp Prescriptions: - Gentamicin 0.3 % Ophthalmic Drops - instill 1 drop by OPHTHALMIC route every 4 hours for 7 days; 1 bottle; Refills: cp 0, Product Selection Permitted Addendum: 04/13/2022 07:41 Co-signature as Attending Physician, Aldo Jang MD I reviewed the patient's care r n provided by the Advanced Practice Provider and agree with the diagnosis and treatment plan. Signatures: Aldo Jang MD MD rn Page, Corey, PA PA cp Wood, Tiffany tw5 Sydnie Whatley RN RN vc1 Corrections: (The following items were deleted from the chart) 04/12 00:04/11 23:25 Constitutional: The patient appears in no acute distress, alert, awake, cp comfortable, non-toxic, well developed, well nourished, cp 04/12 00:04/11 23:25 Head/Face: Normocephalic, atraumatic. cp cp 04/12 00:04/11 23:25 Eyes: Periorbital structures: appear normal, Pupils: equal, round, and cp reactive to light and accomodation, Extraocular movements: intact throughout, Conjunctiva: mild redness. Corneas: abrasion, is not appreciated, foreign body, is not appreciated, a fluorescein strip employed to appreciate the findings, Lids and lashes: appear normal, bilaterally, cp 04/12 00:04/11 23:25 ENT: External ear(s): are unremarkable, Nose: is normal, Mouth: Lips: cp moist, Oral mucosa: pink and intact, moist, Posterior pharynx: Airway: no evidence of obstruction, patent, cp 04/12 00:04/11 23:25 Neck: ROM/movement: is normal, is supple, without pain, no range of motions cp limitations, Lymph nodes: no appreciated lymphadenopathy, cp 04/12 00:04/11 23:25 Chest/axilla: Inspection: normal, cp cp 04/12 00:04/11 23:25 Cardiovascular: Rate: normal, cp cp 04/12 00:04/11 23:25 Respiratory: the patient does not display signs of respiratory distress, cp Respirations: normal, cp 04/12 00:04/11 23:25 Skin: cellulitis, is not appreciated, no rash present. cp cp 04/12 00:04/10 23:15 . cp cp
--- NOTE | 2022-04-11 01:03 | ER ---
Nurse's Notes [facility] Name: Melissa Man Age: 51 yrs Sex: Female : 1970 Arrival Date: 04/10/2022 Time: 21:57 Bed 11 Private MD: Diagnosis: Other conjunctivitis-bilateral Presentation: 04/10 22:21 Chief complaint: Patient states: "It my eye. I have been having a lot of trouble with tw5 them. I have been waking up and they are really crusty. It feels like there is something stuck in my eye.". Chief complaint: Patient states: "It has been a few weeks. I had a eye appointment today, but I did not make it due to work. I plan on going tomorrow. "'. Coronavirus screen: Vaccine status: Patient reports receiving the 2nd dose of the covid vaccine. Moderna. Ebola Screen: Patient negative for fever greater than or equal to 101.5 degrees Fahrenheit, and additional compatible Ebola Virus Disease symptoms Patient denies exposure to infectious person. Patient denies travel to an Ebola-affected area in the 21 days before illness onset. Initial Sepsis Screen: Does the patient meet any 2 criteria? No. Patient's initial sepsis screen is negative. Does the patient have a suspected source of infection? No. Patient's initial sepsis screen is negative. Risk Assessment: Do you want to hurt yourself or someone else? Patient reports no desire to harm self or others. Onset of symptoms is unknown. 22:21 Method Of Arrival: Ambulatory tw5 22:21 Acuity: LISETTE 4 tw5 Triage Assessment: 22:23 General: Appears in no apparent distress. Behavior is calm, cooperative, appropriate tw5 for age. Pain: Pain currently is 3 out of 10 on a pain scale. 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 - Social history:: Smoking status: Patient denies any tobacco usage or history of. Screenin/24 01:20 Abuse screen: Denies threats or abuse. Nutritional screening: No deficits noted. vc1 Tuberculosis screening: No symptoms or risk factors identified. Assessment: 01:20 Reassessment: No changes from previously documented assessment. Patient and/or family vc1 updated on plan of care and expected duration. Pain level reassessed. Patient is alert, oriented x 3, equal unlabored respirations, skin warm/dry/pink. Patient states symptoms have improved. Vital Signs: 04/10 22:21 BP 125 / 97; Pulse 85; Resp 18; Temp 98.6; Pulse Ox 100% ; Weight 72.12 kg; Height 5 tw5 ft. 5 in. (165.10 cm); Pain 3/10; 22:21 Body Mass Index 26.46 (72.12 kg, 165.10 cm) tw5 ED Course: 21:57 Patient arrived in ED. [email or web address] 22:18 Juan Shipman PA is PHCP. [email or web address] 22:18 Aldo Jang MD is Attending Physician. cp 22:23 Triage completed. tw 22:23 Arm band placed on. tw5 04/11 01:20 No provider procedures requiring assistance completed. Patient did not have IV access vc1 during this emergency room visit. 01:21 Patient has correct armband on for positive identification. vc1 Administered Medications: 00:00 Drug: Tetracaine Drops 0.5 % 1 drops Route: Ophthalmic; Site: both eyes; vc1 01:04 Drug: Gentamicin Drops 0.3 % 1 drops Route: Ophthalmic; Site: both eyes; vc1 Medication: 01:21 VIS not applicable for this client. vc1 Outcome: 01:03 Discharge ordered by . cp 01:21 Discharged to home ambulatory. vc1 01:21 Condition: good 01:21 Discharge instructions given to patient, Instructed on discharge instructions, follow up and referral plans. medication usage, Demonstrated understanding of instructions, follow-up care, medications, Prescriptions given X 1. 01:21 Patient left the ED. vc1 Signatures: Juan Shipman PA PA cp Wood, Tiffany tw5 Anamika Atkins [email or web address] Sydnie Whatley RN RN vc1
[2022-04-11] MEDS ORDERED: GENTAMICIN 0.3% OPTH DROP 5ML ONE (01:07)
[2022-04-11 02:17] VITALS: BP 125/97; TEMP 98.6; O2SAT 100
== END 2022-04-11 01:21 | disposition home or self-care (01) ==
LOC: ER 21:51
DX: H10.89 Other conjunctivitis (principal)
CPT/HCPCS: 99283

== ENCOUNTER 2023-01-29 21:46 | Emergency (ER) | payer SELFPAY ==
--- OUTSIDE RECORDS SUMMARY | 2023-01-29 21:51 | XMS REPORT | Continuity of Care Document ---
Author Name Unknown Address [address] [facility] [address] [place] [address] [facility] thconnect Address [address] [facility] [address] [place] [address] Care Team Providers Care State Historical Society Director Name Role Phone GENIE LEWIS Primary Care Physician Unavailab JULIANNE Braswell Attending Clinician Unavailable CHIP TELLO Attending Clinician Unavailable [email or web address] Attending Clinician UnavailGenie Wong Attending Clinician [phone] GENIE LEWIS Attending Clinician Unavailable MANUELA PEDERSEN Attending Clinician Unavailable Lab, Ang - Db Attending Clinician Unavailable IRENA AGUILAR Attending Clinician Unavailable EDWIN MEDRANO Attending Clinician Miley MELODY Mckeon Attending Clinician Unavailable Arik Rossi MD Attending Clinician [phone] Doctor Unassigned, [place] Attending Clinician U BLANCA Ryan Attending Clinician UnavailBlanca Presley Attending Clinician [phone] Manuela Pedersen MD Attending Clinician [phone] Julianne Rayo MD Attending Clinician [phone] ANGY BOTELLO Attending Clinician Unavailab ARIK Abel Attending Clinician UnavailMELVIN Mark Attending Clinician Unavailable JULIANNE RAYO Admitting Clinician Unavailable [email or web address] Admitting Clinician Julianne Guerrero MD Admitting Clinician Payers Payer Name Policy Type Policy Number Effective Date Expirati on Date Source [facility] - OUT OF STATE [id number] 2021 00:00:00 [facility] [id number] 2018 00:00:00 Problems Condition Name Condition Details Condition Category Status Onset Date Resolution Date Last Treatment Date Treating Clinician Comments Source Vitamin D deficiency Vitamin D deficiency Disease Active 03-11 00:00: 00 [facility] ALYCIA (obstructi ve sleep apnea) ALYCIA (obstructi ve sleep apnea) Disease Active 07-08 00:00: 00 [facility] Arthritis of lumbar spine Arthritis of lumbar spine Disease Active 06-28 00:00: 00 [facility] Screening for colorectal cancer Screening for colorectal cancer Disease Active 06-11 00:00: 00 Overview: Formattin g of this note might be different from the original. Added automatic ally from request for surgery [id number] [facility] Chronic insomnia Chronic insomnia Disease Active 06-06 00:00: 00 [facility] Need for hepatitis A and B vaccinatio n Need for hepatitis A and B vaccinatio n Disease Active 06-02 00:00: 00 Overview: Formattin g of this note might be different from the original. Schedule: 0, 1, and 6 months; Additiona l diagnosis code: Fatty liver K76.0 [facility] Hyperchole sterolemia Hyperchole sterolemia Disease Active 05-05 00:00: 00 [facility] Obesity (BMI 30-39.9) Obesity (BMI 30-39.9) Disease Active 05-05 00:00: 00 [facility] History of Graves' disease History of Graves' disease Disease Active 04-09 00:00: 00 [facility] Palpitatio ns Palpitatio ns Disease Active 04-09 00:00: 00 [facility] Prediabete s Prediabete s Disease Active [facility] Postablati ve hypothyroi dism Postablati ve hypothyroi dism Disease Active [facility] Abnormal liver function tests Abnormal liver function tests Disease Active [facility] Fatty liver Fatty liver Disease Active Overview: Formattin g of this note might be different from the original. "very mild" per Radiology report 04/2018 [facility] Allergies, Adverse Reactions, Alerts Allergy Name Allergy Type Status Severity Reaction(s) Onset Date Inactive Date Treating Clinician Comments Source NITROFUR ANTOIN MONOHYD/ M-CRYST DRUG Active Other-Cmnt 05-27 00:00: 00 [facility] Nitrofur antoin Monohyd/ M-Cryst Propensi ty to adverse reaction s Active Other - See comments 05-27 00:00: [address] [facility] Penicill ins Propensi ty to adverse reaction s Active Hives 07-22 00:00: 00 [facility] PENICILL INS Drug Class Active Hives 07-22 00:00: 00 [facility] Penicill ins Propensi ty to adverse reaction s Active Hives 07-22 00:00: 00 [facility] Social History Social Habit Start Date Stop Date Quantity Comments Source [facility] SARS-CoV-2 (event) 2022-04-13 00:00:00 2022-04-23 14:00:00 Not sure [facility] Tobacco use and exposure 2022-03-06 00:00:00 2022-03-06 00:00:00 Smokeless tobacco non-user [facility] Alcohol intake 2022-03-06 00:00:00 2022-03-06 00:00:00 Current non-drinker of alcohol (finding) [facility] History of Social function 2021-06-14 00:00:00 2021-06-14 00:00:00 [facility] Sex Assigned At 1970 00:00:00 1970 00:00:00 [facility] Smoking Status Start Date Stop Date Source Never smoked tobacco [facility] Medications Ordered Medication Name Filled Medication Name Start Date Stop Date Current Medication? Ordering Clinician Indication Dosage Frequency Signature (SIG) Comments Components Source levothyroxi ne (SYNTHROID) 50 mcg tablet 2022-02 0 00:00: 00 Yes [id number] 50ug Take 1 tablet by mouth every morning. BRAND MEDICALLY NECESSARY. Discontinu e levothyrox ine 75mcg. [facility] levothyroxi ne (SYNTHROID) 50 mcg tablet 2022-02 00:00: 00 Yes [id number] 50ug Take 1 tablet by mouth every morning. BRAND MEDICALLY NECESSARY. Discontinu e levothyrox ine 75mcg. [facility] levothyroxi ne (SYNTHROID) 50 mcg tablet 04-27 00:00: 00 Yes [id number] 50ug Take 1 tablet by mouth every morning. BRAND MEDICALLY NECESSARY. Discontinu e levothyrox ine 75mcg. [facility] levothyroxi ne (SYNTHROID) 50 mcg tablet 04-27 00:00: 00 Yes [id number] 50ug Take 1 tablet by mouth every morning. BRAND MEDICALLY NECESSARY. Discontinu e levothyrox ine 75mcg. [facility] levothyroxi ne (SYNTHROID) 50 mcg tablet 04-27 00:00: 00 11-25 00:00 :00 No [id number] 50ug Take 1 tablet by mouth every morning. BRAND MEDICALLY NECESSARY. Discontinu e levothyrox ine 75mcg. [facility] levothyroxi ne (SYNTHROID) 50 mcg tablet 04-26 00:00: 00 Yes [id number] 50ug Take 1 tablet by mouth every morning. BRAND MEDICALLY NECESSARY. Discontinu e levothyrox ine 75mcg. [facility] ergocalcife rol, vitamin d2, 1,250 mcg (50,000 unit) capsule 04-25 00:00: 00 Yes [id number] Take 1 capsule by mouth weekly. [facility] ergocalcife rol, vitamin d2, 1,250 mcg (50,000 unit) capsule 04-25 00:00: 00 Yes [id number] Take 1 capsule by mouth weekly. [facility] ergocalcife rol, vitamin d2, 1,250 mcg (50,000 unit) capsule 04-25 00:00: 00 Yes [id number] Take 1 capsule by mouth weekly. [facility] ergocalcife rol, vitamin d2, 1,250 mcg (50,000 unit) capsule 04-25 00:00: 00 Yes [id number] Take 1 capsule by mouth weekly. [facility] ergocalcife rol, vitamin d2, 1,250 mcg (50,000 unit) capsule 04-25 00:00: 00 Yes [id number] Take 1 capsule by mouth weekly. [facility] levothyroxi ne (SYNTHROID) 50 mcg tablet 03-06 00:00: 00 Yes [id number] 50ug Take 1 tablet by mouth every morning. BRAND MEDICALLY NECESSARY. Discontinu e levothyrox ine 75mcg. [facility] ergocalcife rol, vitamin d2, 1,250 mcg (50,000 unit) capsule 03-06 00:00: 00 Yes [id number] Take 1 capsule by mouth weekly. Take with food. [facility] fluticasone propionate 50 mcg/actuati on nasal spray 03-06 00:00: 00 Yes [id number] 1{spray } Use 1 [place] in each nostril in the morning. [facility] levocetiriz ine 5 mg tablet 03-06 00:00: 00 Yes [id number] 5mg Take 1 tablet by mouth every evening. [facility] montelukast 10 mg tablet 03-06 00:00: 00 Yes [id number] 10mg Take 1 tablet by mouth in the morning. [facility] levothyroxi ne (SYNTHROID) 50 mcg tablet 03-06 00:00: 00 Yes [id number] 50ug Take 1 tablet by mouth every morning. BRAND MEDICALLY NECESSARY. Discontinu e levothyrox ine 75mcg. [facility] ergocalcife rol, vitamin d2, 1,250 mcg (50,000 unit) capsule 03-06 00:00: 00 Yes [id number] Take 1 capsule by mouth weekly. Take with food. [facility] fluticasone propionate 50 mcg/actuati on nasal spray 03-06 00:00: 00 Yes [id number] 1{spray } Use 1 [place] in each nostril in the morning. [facility] levocetiriz ine 5 mg tablet 03-06 00:00: 00 Yes [id number] 5mg Take 1 tablet by mouth every evening. [facility] montelukast 10 mg tablet 03-06 00:00: 00 Yes [id number] 10mg Take 1 tablet by mouth in the morning. [facility] levothyroxi ne (SYNTHROID) 50 mcg tablet 03-06 00:00: 00 Yes [id number] 50ug Take 1 tablet by mouth every morning. BRAND MEDICALLY NECESSARY. Discontinu e levothyrox ine 75mcg. [facility] ergocalcife rol, vitamin d2, 1,250 mcg (50,000 unit) capsule 03-06 00:00: 00 Yes [id number] Take 1 capsule by mouth weekly. Take with food. [facility] fluticasone propionate 50 mcg/actuati on nasal spray 03-06 00:00: 00 Yes [id number] 1{spray } Use 1 [place] in each nostril in the morning. [facility] levocetiriz ine 5 mg tablet 03-06 00:00: 00 Yes [id number] 5mg Take 1 tablet by mouth every evening. [facility] montelukast 10 mg tablet 03-06 00:00: 00 Yes [id number] 10mg Take 1 tablet by mouth in the morning. [facility] levothyroxi ne (SYNTHROID) 50 mcg tablet 03-06 00:00: 00 Yes [id number] 50ug Take 1 tablet by mouth every morning. BRAND MEDICALLY NECESSARY. Discontinu e levothyrox ine 75mcg. [facility] ergocalcife rol, vitamin d2, 1,250 mcg (50,000 unit) capsule 03-06 00:00: 00 Yes [id number] Take 1 capsule by mouth weekly. Take with food. [facility] fluticasone propionate 50 mcg/actuati on nasal spray 03-06 00:00: 00 Yes [id number] 1{spray } Use 1 [place] in each nostril in the morning. [facility] levocetiriz ine 5 mg tablet 03-06 00:00: 00 Yes [id number] 5mg Take 1 tablet by mouth every evening. [facility] montelukast 10 mg tablet 03-06 00:00: 00 Yes [id number] 10mg Take 1 tablet by mouth in the morning. [facility] levothyroxi ne (SYNTHROID) 50 mcg tablet 03-06 00:00: 00 Yes [id number] 50ug Take 1 tablet by mouth every morning. BRAND MEDICALLY NECESSARY. Discontinu e levothyrox ine 75mcg. [facility] fluticasone propionate 50 mcg/actuati on nasal spray 03-06 00:00: 00 Yes [id number] 1{spray } Use 1 [place] in each nostril in the morning. [facility] levocetiriz ine 5 mg tablet 03-06 00:00: 00 Yes [id number] 5mg Take 1 tablet by mouth every evening. [facility] montelukast 10 mg tablet 03-06 00:00: 00 Yes [id number] 10mg Take 1 tablet by mouth in the morning. [facility] levothyroxi ne (SYNTHROID) 50 mcg tablet 03-06 00:00: 00 Yes [id number] 50ug Take 1 tablet by mouth every morning. BRAND MEDICALLY NECESSARY. Discontinu e levothyrox ine 75mcg. [facility] fluticasone propionate 50 mcg/actuati on nasal spray 03-06 00:00: 00 Yes [id number] 1{spray } Use 1 [place] in each nostril in the morning. [facility] levocetiriz ine 5 mg tablet 03-06 00:00: 00 Yes [id number] 5mg Take 1 tablet by mouth every evening. [facility] montelukast 10 mg tablet 03-06 00:00: 00 Yes [id number] 10mg Take 1 tablet by mouth in the morning. [facility] fluticasone propionate 50 mcg/actuati on nasal spray 03-06 00:00: 00 Yes [id number] 1{spray } Use 1 [place] in each nostril in the morning. [facility] levocetiriz ine 5 mg tablet 03-06 00:00: 00 Yes [id number] 5mg Take 1 tablet by mouth every evening. [facility] montelukast 10 mg tablet 03-06 00:00: 00 Yes [id number] 10mg Take 1 tablet by mouth in the morning. [facility] fluticasone propionate 50 mcg/actuati on nasal spray 03-06 00:00: 00 Yes [id number] 1{spray } Use 1 [place] in each nostril in the morning. [facility] levocetiriz ine 5 mg tablet 03-06 00:00: 00 Yes [id number] 5mg Take 1 tablet by mouth every evening. [facility] montelukast 10 mg tablet 03-06 00:00: 00 Yes [id number] 10mg Take 1 tablet by mouth in the morning. [facility] fluticasone propionate 50 mcg/actuati on nasal spray 03-06 00:00: 00 Yes [id number] 1{spray } Use 1 [place] in each nostril in the morning. [facility] levocetiriz ine 5 mg tablet 0 03-06 00:00: 00 Yes [id number] 5mg Take 1 tablet by mouth every evening. [facility] montelukast 10 mg tablet 0 03-06 00:00: 00 Yes [id number] 10mg Take 1 tablet by mouth in the morning. [facility] fluticasone propionate 50 mcg/actuati on nasal spray 03-06 00:00: 00 Yes [id number] 1{spray } Use 1 [place] in each nostril in the morning. [facility] levocetiriz ine 5 mg tablet 03-06 00:00: 00 Yes [id number] 5mg Take 1 tablet by mouth every evening. [facility] montelukast 10 mg tablet 03-06 00:00: 00 Yes [id number] 10mg Take 1 tablet by mouth in the morning. [facility] fluticasone propionate 50 mcg/actuati on nasal spray 03-06 00:00: 00 Yes [id number] 1{spray } Use 1 [place] in each nostril in the morning. [facility] levocetiriz ine 5 mg tablet 03-06 00:00: 00 Yes [id number] 5mg Take 1 tablet by mouth every evening. [facility] montelukast 10 mg tablet 03-06 00:00: 00 Yes [id number] 10mg Take 1 tablet by mouth in the morning. [facility] ergocalcife rol, vitamin d2, 1,250 mcg (50,000 unit) capsule 03-06 00:00: 00 04-25 00:00 :00 No [id number] Take 1 capsule by mouth weekly. Take with food. [facility] levothyroxi ne (SYNTHROID) 50 mcg tablet 03-06 00:00: 00 04-24 00:00 :00 No [id number] 50ug Take 1 tablet by mouth every morning. BRAND MEDICALLY NECESSARY. Discontinu e levothyrox ine 75mcg. [facility] EUTHYROX 75 mcg tablet 09-24 00:00: 00 Yes [id number] TAKE 1 TABLET BY MOUTH ONCE DAILY IN THE MORNING [facility] EUTHYROX 75 mcg tablet 09-24 00:00: 00 03-06 00:00 :00 No [id number] TAKE 1 TABLET BY MOUTH ONCE DAILY IN THE MORNING [facility] EUTHYROX 75 mcg tablet 2022-0 8-09 00:00: 00 03-06 00:00 :00 No [id number] TAKE 1 TABLET BY MOUTH ONCE DAILY IN THE MORNING [facility] estradiol-n orethindron e 0.05-0.25 mg/24 hr patch 06-13 00:00: 00 06-12 00:00 :00 No [id number] 1{patch } Apply 1 Patch to skin 2 (two) times per week. [facility] sulfamethox azole-trime thoprim (BACTRIM) 400-80 mg per tablet 06-12 00:00: 00 Yes [id number] 1{tbl} Take 1 tablet by mouth 2 (two) times daily. [facility] Estradiol-N orethindron e Acet (ACTIVELLA) 0.5-0.1 mg tablet 06-12 00:00: 00 Yes [id number] 1{tbl} Take 1 tablet by mouth daily. [facility] sulfamethox azole-trime thoprim (BACTRIM) 400-80 mg per tablet 06-12 00:00: 00 Yes [id number] 1{tbl} Take 1 tablet by mouth 2 (two) times daily. [facility] Estradiol-N orethindron e Acet (ACTIVELLA) 0.5-0.1 mg tablet 06-12 00:00: 00 Yes [id number] 1{tbl} Take 1 tablet by mouth daily. [facility] sulfamethox azole-trime thoprim (BACTRIM) 400-80 mg per tablet 06-12 00:00: 00 Yes [id number] 1{tbl} Take 1 tablet by mouth 2 (two) times daily. [facility] Estradiol-N orethindron e Acet (ACTIVELLA) 0.5-0.1 mg tablet 06-12 00:00: 00 Yes [id number] 1{tbl} Take 1 tablet by mouth daily. [facility] sulfamethox azole-trime thoprim (BACTRIM) 400-80 mg per tablet 06-12 00:00: 00 Yes [id number] 1{tbl} Take 1 tablet by mouth 2 (two) times daily. [facility] Estradiol-N orethindron e Acet (ACTIVELLA) 0.5-0.1 mg tablet 06-12 00:00: 00 Yes [id number] 1{tbl} Take 1 tablet by mouth daily. [facility] sulfamethox azole-trime thoprim (BACTRIM) 400-80 mg per tablet 06-12 00:00: 00 Yes [id number] 1{tbl} Take 1 tablet by mouth 2 (two) times daily. [facility] Estradiol-N orethindron e Acet (ACTIVELLA) 0.5-0.1 mg tablet 06-12 00:00: 00 Yes [id number] 1{tbl} Take 1 tablet by mouth daily. [facility] sulfamethox azole-trime thoprim (BACTRIM) 400-80 mg per tablet 06-12 00:00: 00 Yes [id number] 1{tbl} Take 1 tablet by mouth 2 (two) times daily. [facility] Estradiol-N orethindron e Acet (ACTIVELLA) 0.5-0.1 mg tablet 06-12 00:00: 00 Yes [id number] 1{tbl} Take 1 tablet by mouth daily. [facility] sulfamethox azole-trime thoprim (BACTRIM) 400-80 mg per tablet 06-12 00:00: 00 Yes [id number] 1{tbl} Take 1 tablet by mouth 2 (two) times daily. [facility] Estradiol-N orethindron e Acet (ACTIVELLA) 0.5-0.1 mg tablet 06-12 00:00: 00 Yes [id number] 1{tbl} Take 1 tablet by mouth daily. [facility] sulfamethox azole-trime thoprim (BACTRIM) 400-80 mg per tablet 06-12 00:00: 00 Yes [id number] 1{tbl} Take 1 tablet by mouth 2 (two) times daily. [facility] Estradiol-N orethindron e Acet (ACTIVELLA) 0.5-0.1 mg tablet 06-12 00:00: 00 Yes [id number] 1{tbl} Take 1 tablet by mouth daily. [facility] sulfamethox azole-trime thoprim (BACTRIM) 400-80 mg per tablet 06-12 00:00: 00 Yes [id number] 1{tbl} Take 1 tablet by mouth 2 (two) times daily. [facility] Estradiol-N orethindron e Acet (ACTIVELLA) 0.5-0.1 mg tablet 06-12 00:00: 00 Yes [id number] 1{tbl} Take 1 tablet by mouth daily. [facility] sulfamethox azole-trime thoprim (BACTRIM) 400-80 mg per tablet 06-12 00:00: 00 Yes [id number] 1{tbl} Take 1 tablet by mouth 2 (two) times daily. [facility] Estradiol-N orethindron e Acet (ACTIVELLA) 0.5-0.1 mg tablet 06-12 00:00: 00 Yes [id number] 1{tbl} Take 1 tablet by mouth daily. [facility] sulfamethox azole-trime thoprim (BACTRIM) 400-80 mg per tablet 06-12 00:00: 00 Yes [id number] 1{tbl} Take 1 tablet by mouth 2 (two) times daily. [facility] Estradiol-N orethindron e Acet (ACTIVELLA) 0.5-0.1 mg tablet 06-12 00:00: 00 Yes [id number] 1{tbl} Take 1 tablet by mouth daily. [facility] sulfamethox azole-trime thoprim (BACTRIM) 400-80 mg per tablet 06-12 00:00: 00 Yes [id number] 1{tbl} Take 1 tablet by mouth 2 (two) times daily. [facility] Estradiol-N orethindron e Acet (ACTIVELLA) 0.5-0.1 mg tablet 06-12 00:00: 00 Yes [id number] 1{tbl} Take 1 tablet by mouth daily. [facility] sulfamethox azole-trime thoprim (BACTRIM) 400-80 mg per tablet 06-12 00:00: 00 Yes [id number] 1{tbl} Take 1 tablet by mouth 2 (two) times daily. [facility] Estradiol-N orethindron e Acet (ACTIVELLA) 0.5-0.1 mg tablet 06-12 00:00: 00 Yes [id number] 1{tbl} Take 1 tablet by mouth daily. [facility] sulfamethox azole-trime thoprim (BACTRIM) 400-80 mg per tablet 06-12 00:00: 00 Yes [id number] 1{tbl} Take 1 tablet by mouth 2 (two) times daily. [facility] Estradiol-N orethindron e Acet (ACTIVELLA) 0.5-0.1 mg tablet 06-12 00:00: 00 Yes [id number] 1{tbl} Take 1 tablet by mouth daily. [facility] sulfamethox azole-trime thoprim (BACTRIM) 400-80 mg per tablet 06-12 00:00: 00 Yes [id number] 1{tbl} Take 1 tablet by mouth 2 (two) times daily. [facility] Estradiol-N orethindron e Acet (ACTIVELLA) 0.5-0.1 mg tablet 06-12 00:00: 00 Yes [id number] 1{tbl} Take 1 tablet by mouth daily. [facility] ergocalcife rol, vitamin d2, 1,250 mcg (50,000 unit) capsule 03-11 00:00: 00 Yes [id number] Take 1 capsule by mouth weekly. Take with food. [facility] SYNTHROID 50 mcg tablet 03-11 00:00: 00 Yes [id number] 50ug Take 1 tablet by mouth every morning. BRAND MEDICALLY NECESSARY. Discontinu e levothyrox ine 75mcg. [facility] ergocalcife rol, vitamin d2, 1,250 mcg (50,000 unit) capsule 03-11 00:00: 00 Yes [id number] Take 1 capsule by mouth weekly. Take with food. [facility] SYNTHROID 50 mcg tablet 03-11 00:00: 00 Yes [id number] 50ug Take 1 tablet by mouth every morning. BRAND MEDICALLY NECESSARY. Discontinu e levothyrox ine 75mcg. [facility] ergocalcife rol, vitamin d2, 1,250 mcg (50,000 unit) capsule 03-11 00:00: 00 03-06 00:00 :00 No [id number] Take 1 capsule by mouth weekly. Take with food. [facility] SYNTHROID 50 mcg tablet 03-11 00:00: 00 03-06 00:00 :00 No [id number] 50ug Take 1 tablet by mouth every morning. BRAND MEDICALLY NECESSARY. Discontinu e levothyrox ine 75mcg. [facility] ergocalcife rol, vitamin d2, 1,250 mcg (50,000 unit) capsule 03-11 00:00: 00 03-06 00:00 :00 No [id number] Take 1 capsule by mouth weekly. Take with food. [facility] SYNTHROID 50 mcg tablet 03-11 00:00: 00 03-06 00:00 :00 No [id number] 50ug Take 1 tablet by mouth every morning. BRAND MEDICALLY NECESSARY. Discontinu e levothyrox ine 75mcg. [facility] ergocalcife rol, vitamin d2, 1,250 mcg (50,000 unit) capsule 03-11 00:00: 00 03-06 00:00 :00 No [id number] Take 1 capsule by mouth weekly. Take with food. [facility] SYNTHROID 50 mcg tablet 03-11 00:00: 00 03-06 00:00 :00 No [id number] 50ug Take 1 tablet by mouth every morning. BRAND MEDICALLY NECESSARY. Discontinu e levothyrox ine 75mcg. [facility] LEVOTHYROXI NE 75 mcg tablet 08-13 00:00: 00 03-11 00:00 :00 No [id number] TAKE 1 TABLET BY MOUTH EVERY DAY IN THE MORNING [facility] LEVOTHYROXI NE 75 mcg tablet 08-13 00:00: 00 03-11 00:00 :00 No [id number] TAKE 1 TABLET BY MOUTH EVERY DAY IN THE MORNING [facility] Immunizations Ordered Immunization Name Filled Immunization Name Date Status Comments Source SARS-COV-2 COVID-19 MODERNA VACCINE 2021-03-06 00:00:00 Completed [facility] SARS-COV-2 COVID-19 MODERNA VACCINE 2021-03-06 00:00:00 Completed [facility] SARS-COV-2 COVID-19 MODERNA 12+ YRS VACCINE 2021-03-06 00:00:00 Completed [facility] SARS-COV-2 COVID-19 MODERNA 12+ YRS VACCINE 2021-03-06 00:00:00 Completed [facility] SARS-COV-2 COVID-19 MODERNA 12+ YRS VACCINE 2021-03-06 00:00:00 Completed [facility] SARS-COV-2 COVID-19 MODERNA 12+ YRS VACCINE 2021-03-06 00:00:00 Completed [facility] SARS-COV-2 COVID-19 MODERNA 12+ YRS VACCINE 2021-03-06 00:00:00 Completed [facility] SARS-COV-2 COVID-19 MODERNA 12+ YRS VACCINE 2021-03-06 00:00:00 Completed [facility] SARS-COV-2 COVID-19 MODERNA 12+ YRS VACCINE 2021-03-06 00:00:00 Completed [facility] SARS-COV-2 COVID-19 MODERNA 12+ YRS VACCINE 2021-03-06 00:00:00 Completed [facility] SARS-COV-2 COVID-19 MODERNA 12+ YRS VACCINE 2021-03-06 00:00:00 Completed [facility] Influenza Virus Vaccine 2020-11-16 00:00:00 Completed [facility] Influenza Virus Vaccine 2020-11-16 00:00:00 Completed [facility] Influenza Virus Vaccine 2020-11-16 00:00:00 Completed [facility] Influenza Virus Vaccine 2020-11-16 00:00:00 Completed [facility] Influenza Virus Vaccine 2020-11-16 00:00:00 Completed [facility] Influenza Virus Vaccine 2020-11-16 00:00:00 Completed [facility] Influenza Virus Vaccine 2020-11-16 00:00:00 Completed [facility] Influenza Virus Vaccine 2020-11-16 00:00:00 Completed [facility] Influenza Virus Vaccine 2020-11-16 00:00:00 Completed [facility] Influenza Virus Vaccine 2020-11-16 00:00:00 Completed [facility] Influenza Virus Vaccine 2020-11-16 00:00:00 Completed [facility] SARS-COV-2 COVID-19 MODERNA VACCINE 2020-09-03 00:00:00 Completed [facility] SARS-COV-2 COVID-19 MODERNA VACCINE 2020-09-03 00:00:00 Completed [facility] SARS-COV-2 COVID-19 MODERNA 12+ YRS VACCINE 2020-09-03 00:00:00 Completed [facility] SARS-COV-2 COVID-19 MODERNA 12+ YRS VACCINE 2020-09-03 00:00:00 Completed [facility] SARS-COV-2 COVID-19 MODERNA 12+ YRS VACCINE 2020-09-03 00:00:00 Completed [facility] SARS-COV-2 COVID-19 MODERNA 12+ YRS VACCINE 2020-09-03 00:00:00 Completed [facility] SARS-COV-2 COVID-19 MODERNA 12+ YRS VACCINE 2020-09-03 00:00:00 Completed [facility] SARS-COV-2 COVID-19 MODERNA 12+ YRS VACCINE 2020-09-03 00:00:00 Completed [facility] SARS-COV-2 COVID-19 MODERNA 12+ YRS VACCINE 2020-09-03 00:00:00 Completed [facility] SARS-COV-2 COVID-19 MODERNA 12+ YRS VACCINE 2020-09-03 00:00:00 Completed [facility] SARS-COV-2 COVID-19 MODERNA 12+ YRS VACCINE 2020-09-03 00:00:00 Completed [facility] SARS-COV-2 COVID-19 MODERNA VACCINE 2020-07-30 00:00:00 Completed [facility] SARS-COV-2 COVID-19 MODERNA VACCINE 2020-07-30 00:00:00 Completed [facility] SARS-COV-2 COVID-19 MODERNA 12+ YRS VACCINE 2020-07-30 00:00:00 Completed [facility] SARS-COV-2 COVID-19 MODERNA 12+ YRS VACCINE 2020-07-30 00:00:00 Completed [facility] SARS-COV-2 COVID-19 MODERNA 12+ YRS VACCINE 2020-07-30 00:00:00 Completed [facility] SARS-COV-2 COVID-19 MODERNA 12+ YRS VACCINE 2020-07-30 00:00:00 Completed [facility] SARS-COV-2 COVID-19 MODERNA 12+ YRS VACCINE 2020-07-30 00:00:00 Completed [facility] SARS-COV-2 COVID-19 MODERNA 12+ YRS VACCINE 2020-07-30 00:00:00 Completed [facility] SARS-COV-2 COVID-19 MODERNA 12+ YRS VACCINE 2020-07-30 00:00:00 Completed [facility] SARS-COV-2 COVID-19 MODERNA 12+ YRS VACCINE 2020-07-30 00:00:00 Completed [facility] SARS-COV-2 COVID-19 MODERNA 12+ YRS VACCINE 2020-07-30 00:00:00 Completed [facility] TDAP 2015-02-16 00:00:00 Completed [facility] TDAP 2015-02-16 00:00:00 Completed [facility] TDAP 2015-02-16 00:00:00 Completed [facility] TDAP 2015-02-16 00:00:00 Completed [facility] TDAP 2015-02-16 00:00:00 Completed [facility] TDAP 2015-02-16 00:00:00 Completed [facility] TDAP 2015-02-16 00:00:00 Completed [facility] TDAP 2015-02-16 00:00:00 Completed [facility] TDAP 2015-02-16 00:00:00 Completed [facility] TDAP 2015-02-16 00:00:00 Completed [facility] TDAP 2015-02-16 00:00:00 Completed [facility] TDAP Unknown Completed [facility] SARS-COV-2 COVID-19 MODERNA 12+ YRS VACCINE Unknown Completed [facility] SARS-COV-2 COVID-19 MODERNA 12+ YRS VACCINE Unknown Completed [facility] Influenza Virus Vaccine Unknown Completed [facility] SARS-COV-2 COVID-19 MODERNA 12+ YRS VACCINE Unknown Completed [facility] TDAP Unknown Completed [facility] SARS-COV-2 COVID-19 MODERNA 12+ YRS VACCINE Unknown Completed [facility] SARS-COV-2 COVID-19 MODERNA 12+ YRS VACCINE Unknown Completed [facility] Influenza Virus Vaccine Unknown Completed [facility] SARS-COV-2 COVID-19 MODERNA 12+ YRS VACCINE Unknown Completed [facility] TDAP Unknown Completed [facility] SARS-COV-2 COVID-19 MODERNA 12+ YRS VACCINE Unknown Completed [facility] SARS-COV-2 COVID-19 MODERNA 12+ YRS VACCINE Unknown Completed [facility] Influenza Virus Vaccine Unknown Completed [facility] SARS-COV-2 COVID-19 MODERNA 12+ YRS VACCINE Unknown Completed [facility] TDAP Unknown Completed [facility] SARS-COV-2 COVID-19 MODERNA 12+ YRS VACCINE Unknown Completed [facility] SARS-COV-2 COVID-19 MODERNA 12+ YRS VACCINE Unknown Completed [facility] Influenza Virus Vaccine Unknown Completed [facility] SARS-COV-2 COVID-19 MODERNA 12+ YRS VACCINE Unknown Completed [facility] TDAP Unknown Completed [facility] SARS-COV-2 COVID-19 MODERNA 12+ YRS VACCINE Unknown Completed [facility] SARS-COV-2 COVID-19 MODERNA 12+ YRS VACCINE Unknown Completed [facility] Influenza Virus Vaccine Unknown Completed [facility] TDAP Unknown Completed [facility] SARS-COV-2 COVID-19 MODERNA 12+ YRS VACCINE Unknown Completed [facility] SARS-COV-2 COVID-19 MODERNA 12+ YRS VACCINE Unknown Completed [facility] Influenza Virus Vaccine Unknown Completed [facility] TDAP Unknown Completed [facility] SARS-COV-2 COVID-19 MODERNA 12+ YRS VACCINE Unknown Completed [facility] SARS-COV-2 COVID-19 MODERNA 12+ YRS VACCINE Unknown Completed [facility] Influenza Virus Vaccine Unknown Completed [facility] SARS-COV-2 COVID-19 MODERNA 12+ YRS VACCINE Unknown Completed [facility] TDAP Unknown Completed [facility] SARS-COV-2 COVID-19 MODERNA 12+ YRS VACCINE Unknown Completed [facility] SARS-COV-2 COVID-19 MODERNA 12+ YRS VACCINE Unknown Completed [facility] Influenza Virus Vaccine Unknown Completed [facility] SARS-COV-2 COVID-19 MODERNA 12+ YRS VACCINE Unknown Completed [facility] Vital Signs Vital Name Observation Time Observation Value Comments S ource Systolic blood pressure 2022-03-06 15:59:00 121 mm[Hg] [facility] Diastolic blood pressure 2022-03-06 15:59:00 82 mm[Hg] [facility] Heart rate 2022-03-06 15:59:00 75 /min [facility] Body temperature 2022-03-06 15:59:00 36.94 [facility] Body height 2022-03-06 15:59:00 152.4 cm [facility] Body weight 2022-03-06 15:59:00 78.019 kg [facility] BMI 2022-03-06 15:59:00 33.59 kg/m2 [facility] Oxygen saturation in Arterial blood by Pulse oximetry 2022-03-06 15:59:00 99 /min [facility] Systolic blood pressure 2021-06-12 19:16:00 135 mm[Hg] [facility] Diastolic blood pressure 2021-06-12 19:16:00 87 mm[Hg] [facility] Heart rate 2021-06-12 19:16:00 69 /min [facility] Body temperature 2021-06-12 19:16:00 36.83 [facility] Body weight 2021-06-12 19:16:00 74.481 kg [facility] BMI 2021-06-12 19:16:00 31.04 kg/m2 [facility] Systolic blood pressure 2021-06-12 19:16:00 135 mm[Hg] [facility] Diastolic blood pressure 2021-06-12 19:16:00 87 mm[Hg] [facility] Heart rate 2021-06-12 19:16:00 69 /min [facility] Body temperature 2021-06-12 19:16:00 36.83 [facility] Body weight 2021-06-12 19:16:00 74.481 kg [facility] BMI 2021-06-12 19:16:00 31.04 kg/m2 [facility] Procedures Procedure Date / Time Performed Performing Clinicia n Source URINE CULTURE 2021-06-12 19:20:00 Manuela Peders[facility] POCT URINALYSIS W/O SPECIFIC GRAVITY 2021-06-12 00:00:00 Manuela Pedersen [facility] Encounters Start Date/Time End Date/Time Encounter Type Admission Type Attending Clinicians Care Facility Care Department Encounter ID Source 2021-06-11 16:01:16 Outpatient JULIANNE WHEELER [facility] VINNIE [id number] [facility] 2023-01-07 13:30:00 2023-01-07 13:30:00 Outpatient CHIP HUI [facility] [id number] [facility] 2022-12-17 00:00:00 2022-12-17 00:00:00 Outpatient GC_[id number] diyala_S [facility] [id number] [facility] 2022-11-26 00:00:00 2022-11-26 00:00:00 [facility] 1.840.114 350.1.13.10 4.2.7.2.[id number] [facility] 2022-11-25 00:00:00 2022-11-25 00:00:00 [facility] 1.84.114 350.1.13.10 4.2.7.2.[id number] [facility] 2022-10-27 16:30:00 2022-10-27 16:30:00 Outpatient R GENIE LEWIS [facility] [id number] [facility] 2022-09-05 16:30:00 2022-09-05 16:30:00 Outpatient R GENIE LEWIS [facility] [id number] [facility] 2022-09-05 08:00:00 2022-09-05 08:00:00 Outpatient R GENIE LEWIS [facility] [id number] [facility] 2022-07-16 00:00:00 2022-07-16 00:00:00 Patient Secure Msg [facility] 1.840.114 350.1.13.10 4.2.7.2.[id number] [facility] 2022-05-13 13:30:00 2022-05-13 13:30:00 Outpatient R MANUELA PEDERSEN [facility] [id number] [facility] 2022-04-25 00:00:00 2022-04-25 00:00:00 Patient Secure Msg [facility] 1.840.114 350.1.13.10 4.2.7.2.[id number] [facility] 2022-04-25 00:00:00 2022-04-25 00:00:00 [facility] 1.2.840.114 350.1.13.10 4.2.7.2.[id number] [facility] 2022-04-24 00:00:00 2022-04-24 00:00:00 Telephone Genie [facility] 1.2.840.114 350.1.13.10 4.2.7.2.[id number] [facility] 2022-04-24 00:00:00 2022-04-24 00:00:00 [facility] 1.2.840.114 350.1.13.10 4.2.7.2.[id number] [facility] 2022-04-24 00:00:00 2022-04-24 00:00:00 Telephone [facility] 1.2.840.114 350.1.13.10 4.2.7.2.[id number] [facility] 2022-04-23 13:45:00 2022-04-23 14:00:00 Chief Scientist Visit Lab, Marquis Bray [facility] 1.2.840.114 350.1.13.10 4.2.7.2.[id number] [facility] 2022-04-23 13:45:00 2022-04-23 13:45:00 Outpatient R GENIE LEWIS [facility] [id number] [facility] 2022-04-16 00:00:00 2022-04-16 00:00:00 Outpatient R GENIE LEWIS [facility] [id number] [facility] 2022-03-28 10:30:00 2022-03-28 10:30:00 Outpatient R MANUELA PEDERSEN [facility] [id number] [facility] 2022-03-07 13:00:00 2022-03-07 13:00:00 Outpatient R IRENA AGUILAR [facility] [id number] [facility] 2022-03-06 10:45:00 2022-03-06 10:45:00 Outpatient R EDWIN MEDRANO [facility] [id number] [facility] 2022-03-06 10:00:00 2022-03-06 10:36:13 Outpatient R GENIE LEWIS [facility] [id number] [facility] 2022-03-06 10:00:00 2022-03-06 10:36:13 [facility] 1.2.840.114 350.1.13.10 4.2.7.2.[id number] [facility] 2021-12-12 15:00:00 2021-12-12 15:00:00 Outpatient R MANUELA PEDERSEN [facility] [id number] [facility] 2021-10-01 13:00:00 2021-10-01 13:00:00 Outpatient R MELODY HEWITT [facility] [id number] [facility] 2021-09-24 13:20:00 2021-09-24 13:20:00 Outpatient R KSAH MELODY [facility] [id number] [facility] 2021-09-24 00:00:00 2021-09-24 00:00:00 Refill [facility]ST[facility] 1.2.840.114 350.1.13.10 4.2.7.2.[id number] [facility] 2021-07-18 00:00:00 2021-07-18 00:00:00 Patient Secure Msg Doctor Unassigned, [place] [facility] 1.284.114 350.1.13.10 4.2.7.2.[id number] [facility] 2021-07-12 08:00:00 2021-07-12 08:17:17 Outpatient R [facility] [id number] [facility] 2021-07-12 08:00:00 2021-07-12 08:17:17 [facility] 1.84.114 350.1.13.10 4.2.7.2.[id number] [facility] 2021-06-17 00:00:00 2021-06-17 00:00:00 Letter (Out) Manuela Pedersen [facility] 1.84.114 350.1.13.10 4.2.7.2.[id number] [facility] 2021-06-14 08:07:00 2021-06-14 11:38:00 Outpatient R JULIANNE RAYO [facility] [id number] [facility] 2021-06-14 08:07:00 2021-06-14 11:38:00 Hospital Encounter Julianne Rayo [facility] 1..114 350.1.13.10 4.2.7.2.[id number] [facility] 2021-06-14 09:21:00 2021-06-14 10:11:00 Surgery Julianne Rayo [facility] 1..114 350.1.13.10 4.2.7.2.[id number] [facility] 2021-06-14 00:00:00 2021-06-14 00:00:00 Orders Only Doctor Unassigned, [place] [facility] 1.2.840.114 350.1.13.10 4.2.7.2.[id number] [facility] 2021-06-14 00:00:00 2021-06-14 00:00:00 Patient Secure Msg Doctor Unassigned, [place] [facility] 1.2.840.114 350.1.13.10 4.2.7.2.[id number] [facility] 2021-06-12 14:00:00 2021-06-12 14:45:20 Outpatient R ADMANUELA THOMPSON [facility] [id number] [facility] 2021-06-12 14:00:00 2021-06-12 14:45:20 [facility] 1.2.840.114 350.1.13.10 4.2.7.2.[id number] [facility] 2021-06-12 14:00:00 2021-06-12 14:45:20 Outpatient R MANUELA PEDERSEN [facility] [id number] [facility] 2021-06-12 14:00:00 2021-06-12 14:45:20 [facility] 1.2.840.114 350.1.13.10 4.2.7.2.[id number] [facility] 2021-06-12 14:00:00 2021-06-12 14:45:20 Outpatient R ADMANUELA THOMPSON [facility] [id number] [facility] 2021-06-12 00:00:00 2021-06-12 00:00:00 Telephone AdBarbara thompsonian L [facility] 1..840.114 350.1.13.10 4.2.7.2.[id number] [facility] 2021-06-04 13:30:00 2021-06-04 13:30:00 Outpatient R FUN[facility] [id number] [facility] 2021-05-07 13:30:00 2021-05-07 13:30:00 Outpatient R FUNMI [facility] [id number] [facility] 2021-05-07 13:30:00 2021-05-07 13:30:00 Outpatient R FUNMI [facility] [id number] [facility] 2021-05-02 00:00:00 2021-05-02 00:00:00 Prep For Surgery Julianne Rayo [facility] 1.2.840.114 350.1.13.10 4.2.7.2.[id number] [facility] 2021-04-30 13:30:00 2021-04-30 14:41:12 Outpatient R JULIANNE RAYO [facility] [id number] [facility] 2021-04-30 13:30:00 2021-04-30 14:41:12 Office Visit Julianne Rayo [facility] 1.2.840.114 350.1.13.10 4.2.7.2.[id number] [facility] 2021-04-30 00:00:00 2021-04-30 00:00:00 Orders Only Doctor Unassigned, [place] [facility] 1.2.840.114 350.1.13.10 4.2.7.2.[id number] [facility] 2021-04-30 00:00:00 2021-04-30 00:00:00 Telephone Julianne Rayo [facility] 1.2.840.114 350.1.13.10 4.2.7.2.[id number] [facility] 2021-04-30 00:00:00 2021-04-30 00:00:00 Letter (Out) Julianne Rayo [facility] 1.2840.114 350.1.13.10 4.2.7.2.[id number] [facility] 2021-04-24 00:00:00 2021-04-24 00:00:00 Patient Secure Msg Doctor Unassigned, [place] [facility] 1.2840.114 350.1.13.10 4.2.7.2.[id number] [facility] 2021-04-10 00:00:00 2021-04-10 00:00:00 Telephone Manuela Pedersen [facility] 1..840.114 350.1.13.10 4.2.7.2.[id number] [facility] 2021-04-05 10:15:00 2021-04-05 10:15:00 Outpatient R [facility] [id number] [facility] 2021-04-05 10:15:00 2021-04-05 10:15:00 Outpatient R ANGY BOTELLO [facility] [id number] [facility] 2021-04-05 00:00:00 2021-04-05 00:00:00 Patient Secure Msg Manuela Pedersen [facility] 1.2.840.114 350.1.13.10 4.2.7.2.[id number] [facility] 2021-03-26 10:30:00 2021-03-26 11:17:39 Outpatient R MANUELA PEDERSEN [facility] [id number] [facility] 2021-03-26 10:30:00 2021-03-26 11:17:39 Office Visit Manuela [facility]ersen [facility] 1.2.840.114 350.1.13.10 4.2.7.2.[id number] [facility] 2021-03-26 10:30:00 2021-03-26 11:17:39 Outpatient R MANUELA PEDERSEN [facility] [id number] [facility] 2021-03-18 00:00:00 2021-03-18 00:00:00 Outpatient R IRVINGBHARGAVI MUNGUIAMEENUPAT [facility] [id number] [facility] 2021-03-11 00:00:00 2021-03-11 00:00:00 Case Management IrvingArik munguia [facility] ERNESTINA?[facility] 1.2.840.114 350.1.13.10 4.2.7.2.[id number] [facility] 2021-03-06 00:00:00 2021-03-06 00:00:00 Telephone IrvingArik [facility] 1.2.840.114 350.1.13.10 4.2.7.2.[id number] [facility] 2021-03-05 00:00:00 2021-03-05 00:00:00 Patient Secure Msg IrvingLynette munguiaful A [facility] ERNESTINA?[facility] 1.2.840.114 350.1.13.10 4.2.7.2.[id number] [facility] 2021-03-01 00:00:00 2021-03-01 00:00:00 Case Management IrvingLynetteful Edwin [facility] ERNESTINA?[facility] 1.2.840.114 350.1.13.10 4.2.7.2.[id number] [facility] 2021-03-01 00:00:00 2021-03-01 00:00:00 Patient Secure Msg Arik Rossi [facility] 1.2840.114 350.1.13.10 4.2.7.2.[id number] [facility] 2021-02-28 17:00:00 2021-02-28 17:15:00 Chief Scientist Visit Lab, Ang - Db Arik Rossi [facility] 1.2840.114 350.1.13.10 4.2.7.2.[id number] [facility] 2021-02-28 16:15:00 2021-02-28 16:22:42 Office Visit Arik Rossi [facility] 1.2840.114 350.1.13.10 4.2.7.2.[id number] [facility] 2021-02-28 16:15:00 2021-02-28 16:22:42 Outpatient R IRVINGARIK MUNGUIA [facility] [id number] [facility] 2021-02-28 16:15:00 2021-02-28 16:22:42 Outpatient R IRVINGARIK MUNGUIA [facility] [id number] [facility] 2021-02-28 00:00:00 2021-02-28 00:00:00 Orders Only Doctor Unassigned, [place] [facility] 1.2840.114 350.1.13.10 4.2.7.2.[id number] [facility] 2020-04-06 16:15:00 2020-04-06 16:15:00 Outpatient R IRVINGARIK MUNGUIA [facility] [id number] [facility] 2020-04-02 15:45:00 2020-04-02 15:45:00 Outpatient R IRVINGARIK MUNGUIA [facility] [id number] [facility] 2020-03-23 15:30:00 2020-03-23 15:30:00 Outpatient R IRVINGARIK MUNGUIA [facility] [id number] [facility] 2020-02-23 10:45:00 2020-02-23 10:45:00 Outpatient R IRVINGBHARGAVI MUNGUIAMEENUPAT [facility] [id number] [facility] 2020-02-13 13:15:00 2020-02-13 13:15:00 Outpatient R IRVINGARIK MUNGUIA [facility] [id number] [facility] 2019-12-26 11:15:00 2019-12-26 11:15:00 Outpatient R IRVING ARIK [facility] [id number] [facility] 2019-10-04 16:00:00 2019-10-04 16:00:00 Outpatient R IRVINGARIK MUNGUIA [facility] [id number] [facility] 2019-08-15 17:40:00 2019-08-15 17:40:00 Outpatient R GENIE LEWIS [facility] [id number] [facility] 2019-07-29 14:00:00 2019-07-29 14:00:00 Outpatient R MELVIN BROWEN [facility] [id number] [facility] 2019-06-01 08:30:00 2019-06-01 08:30:00 Outpatient R MELVIN BROWNE [facility] [id number] [facility] 2019-05-26 09:05:00 2019-05-26 09:05:00 Outpatient R IRVING BHARGAVIMEENUPAT [facility] [id number] [facility] 2019-05-16 07:45:00 2019-05-16 07:45:00 Outpatient R IRVING BHARGAVIMEENUPAT [facility] [id number] [facility] 2019-05-12 08:15:00 2019-05-12 08:15:00 Outpatient ARIK GAMBOA [facility] [id number] [facility] 2019-05-05 15:45:00 2019-05-05 15:45:00 Outpatient ARIK GAMBOA [facility] [id number] [facility] Results Test Description Test Time Test Comments Results Result Co mments Source [facility]
--- NOTE | 2023-01-29 22:11 | EDPHYS ---
Physician Documentation [facility] Name: Melissa Man Age: 52 yrs Sex: Female : 1970 Arrival Date: 01/29/2023 Time: 21:46 Bed 12 Private MD: ED Physician Aldo Jagn HPI: 01/29 22:09 This 52 yrs old Black Female presents to ER via Unassigned with complaints of Allergic rn Reaction. 22:09 The patient presents with itching, rash. Onset: The symptoms/episode began/occurred rn today. Associated signs and symptoms: Pertinent positives: hives, rash, Pertinent negatives: Altered mental status chest pain, fever, shortness of breath, swelling, Syncope vomiting. Possible causes: dog. At home the patient or guardian has treated the symptoms with Benadryl. Severity of symptoms: At their worst the symptoms were mild in the emergency department the symptoms are unchanged. The patient has not experienced similar symptoms in the past. She reports got a new dog and is now experiencing rash and itching in several areas of her body over the last few days. Benadryl helps but has not resolved completely so came in for help. No shortness of breath. No trouble swallowing. No swelling.. 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 - Social history:: Smoking status: Patient denies any tobacco usage or history of. Patient/guardian denies using alcohol, street drugs. - Family history:: not pertinent. - Hospitalizations: : No recent hospitalization is reported. ROS: 22:09 Constitutional: Negative for fever, chills, and weight loss, Eyes: Negative for injury, rn pain, redness, and discharge, ENT: Negative for injury, pain, and discharge, Neck: Negative for injury, pain, and swelling, Cardiovascular: Negative for chest pain, palpitations, and edema, Respiratory: Negative for shortness of breath, cough, wheezing, and pleuritic chest pain, Abdomen/GI: Negative for abdominal pain, nausea, vomiting, diarrhea, and constipation, Skin: Positive for rash and itching Exam: 22:09 Constitutional: This is a well developed, well nourished patient who is awake, alert, rn and in no acute distress. ENT: No oral swelling, no oral lesions, no stridor Respiratory: Speaking full sentences, unlabored. No increased work of breathing, no retractions or nasal flaring. Skin: Warm, dry, areas of left torso, left anterior chest, neck, left arm with small areas of urticaria and excoriations. No bulla. No desquamation. Vital Signs: 22:08 BP 118 / 96; Pulse 75; Resp 16; Temp 98.6(O); Pulse Ox 100% on R/A; Weight 72.57 kg km8 (R); Height 5 ft. 1 in. (R); Pain 0/10; 22:08 Body Mass Index 30.23 (72.57 kg, 154.94 cm) [facility] 22:08 Pain Scale: Adult km8 MDM: 22:02 Patient medically screened. rn 22:09 Differential diagnosis: Allergic reaction, urticaria, contact dermatitis. Data rn reviewed: vital signs, nurses notes, and as a result, I will discharge patient. Counseling: I had a detailed discussion with the patient and/or guardian regarding the historical points, exam findings, and any diagnostic results supporting the discharge/admit diagnosis, the need for outpatient follow up, to return to the emergency department if symptoms worsen or persist or if there are any questions or concerns that arise at home. Special discussion: I discussed with the patient/guardian in detail that at this point there is no indication for admission to the hospital. It is understood, however, that if the symptoms persist or worsen the patient needs to return immediately for re-evaluation. Administered Medications: 22:54 Drug: MethylPREDNISolone Sodium Succinate IM 125 mg IM once Route: IM; Site: right jb4 gluteus; 22:54 Follow up: Response: Medication administered at discharge. jb4 Disposition Summary: 01/29/23 22:11 Discharge Ordered Notes: Location: Home rn Problem: new rn Symptoms: have improved rn Condition: Stable rn Diagnosis - Urticaria, unspecified rn Followup: rn - With: Private Physician - When: As needed - Reason: Recheck today's complaints, Re-evaluation by your physician Discharge Instructions: - Discharge Summary Sheet rn - Tan rn Forms: - Medication Reconciliation Form rn - Thank You Letter rn - Antibiotic sport intern - Prescription Opioid Use rn - Patient Portal Instructions rn - Leadership Thank You Letter rn Prescriptions: - Hydroxyzine HCl 50 mg Oral Tablet - take 1 tablet ORAL route every 8 hours As needed; 20 tablet; Refills: 0, rn Product Selection Permitted - Prednisone 20 mg Oral Tablet - take 3 tablets ORAL route once daily for 5 days; 15 tablet; Refills: 0, Product rn Selection Permitted Signatures: Aldo Jang MD MD rn Bryson, James, RN RN jb4 Charley Schaeffer RN RN km8
[2023-01-29] MEDS ORDERED: METHYLPREDNISOLONE 125 MG INJ ONE (22:44)
--- NOTE | 2023-01-29 22:56 | ER ---
Nurse's Notes [facility] Name: Melissa Man Age: 52 yrs Sex: Female : 1970 Arrival Date: 01/29/2023 Time: 21:46 Bed 12 Private MD: Diagnosis: Urticaria, unspecified Presentation: 01/29 22:08 Chief complaint: Patient states: pt reports rash to left side of neck, chest, shoulder, km8 and ABD for 2 days after getting a new puppy; pt tried to take Benadryl and allergy medications with no relief; denies SOB or throat issues. Coronavirus screen: Client denies travel out of the [place] in the last 14 days. Ebola Screen: No symptoms or risks identified at this time. Onset: The symptoms/episode began/occurred acutely. Anaphylaxis evaluation, no signs or symptoms of anaphylaxis were noted. Initial Sepsis Screen: Does the patient meet any 2 criteria? No. Patient's initial sepsis screen is negative. Does the patient have a suspected source of infection? No. Patient's initial sepsis screen is negative. Risk Assessment: Do you want to hurt yourself or someone else? Patient reports no desire to harm self or others. Onset of symptoms was January 27, 2023. 22:08 Method Of Arrival: Ambulatory km8 22:08 Acuity: LISETTE 4 km8 Triage Assessment: 22:11 General: Appears in no apparent distress. comfortable, Behavior is calm, cooperative, km8 appropriate for age. Pain: Denies pain. EENT: No deficits noted. Neuro: No deficits noted. Cardiovascular: No deficits noted. Denies chest pain, shortness of breath. Respiratory: No deficits noted. Airway is patent Respiratory effort is even, unlabored, Respiratory pattern is regular, symmetrical. GI: No signs and/or symptoms were reported involving the gastrointestinal system. : No signs and/or symptoms were reported regarding the genitourinary system. Derm: Skin is intact, is healthy with good turgor, Skin is dry, Skin is normal, Skin temperature is cool Rash noted that is itchy, urticaria, on left neck, chest, shoulder, and ABD. Musculoskeletal: No signs and/or symptoms reported regarding the musculoskeletal system. Circulation, motion, and sensation intact. Range of motion: intact in all extremities. ELDERLY COMPANION: 22:11 LMP N/A - Post-menopause, Not 8 Historical: - Allergies: 22:11 PENICILLINS; km8 - Home Meds: 22:11 levothyroxine 75 mcg tab 1 tab once daily [Active]; km8 - PMHx: 22:11 fatty liver; Hypothyroidism; UTI; km8 - Immunization history:: Adult Immunizations up to date, Client reports receiving the 2nd dose of the Covid vaccine, Flu vaccine is up to date. - Social history:: Smoking status: Patient denies any tobacco usage or history of. Patient/guardian denies using alcohol, street drugs. - Family history:: not pertinent. - Hospitalizations: : No recent hospitalization is reported. Screenin:55 [facility] ED Fall Risk Assessment (Adult) History of falling in the last 3 months, jb4 including since admission No falls in past 3 months (0 pts) Confusion or Disorientation No (0 pts). Abuse screen: Denies threats or abuse. Nutritional screening: No deficits noted. Tuberculosis screening: No symptoms or risk factors identified. Assessment: 22:55 Reassessment: Patient appears in no apparent distress at this time. Patient and/or jb4 family updated on plan of care and expected duration. Pain level reassessed. Patient is alert, oriented x 3, equal unlabored respirations, skin warm/dry/pink. Vital Signs: 22:08 BP 118 / 96; Pulse 75; Resp 16; Temp 98.6(O); Pulse Ox 100% on R/A; Weight 72.57 kg [facility] (R); Height 5 ft. 1 in. (R); Pain 0/10; 22:08 Body Mass Index 30.23 (72.57 kg, 154.94 cm) 8 22:08 Pain Scale: Adult [facility] ED Course: 22:01 Patient arrived in ED. gm2 22:02 Aldo Jang MD is Attending Physician. rn 22:11 Triage completed. km8 22:11 Arm band placed on right wrist. km8 22:55 Patient has correct armband on for positive identification. jb4 22:55 No provider procedures requiring assistance completed. Patient did not have IV access jb4 during this emergency room visit. Administered Medications: :54 Drug: MethylPREDNISolone Sodium Succinate IM 125 mg IM once Route: IM; Site: right jb4 gluteus; :54 Follow up: Response: Medication administered at discharge. jb4 Medication: 22:55 VIS not applicable for this client. jb4 Outcome: 22:11 Discharge ordered by . rn 22:55 Discharged to home ambulatory, jb4 :55 Condition: stable 22:55 Discharge instructions given to patient, Instructed on discharge instructions, follow up and referral plans. medication usage, Demonstrated understanding of instructions, follow-up care, medications, Prescriptions given X 2, 22:56 Patient left the ED. jb4 Signatures: Aldo Jang MD MD rn Bryson, James, RN RN jb4 Steffanie Corbett 2 Charley Schaeffer RN RN km8
[2023-01-30 00:19] VITALS: BP 118/96; TEMP 98.6; O2SAT 100
== END 2023-01-29 22:56 | disposition home or self-care (01) ==
LOC: ER 21:46
DX: L50.9 Urticaria, unspecified (principal)
CPT/HCPCS: 96372; 99284; J2930

== ENCOUNTER 2024-05-04 20:26 | Emergency (ER) | payer OTHER ==
--- OUTSIDE RECORDS SUMMARY | 2024-05-04 20:33 | XMS REPORT | Continuity of Care Document ---
Author Name Unknown Address [address] [facility] [address] [place] [address] [facility] [place] Address [address] [facility] [place] [address] Care Team Providers Care Tennis Professional Name Role Phone ELYSE LEWIS Primary Care Physician Unavailab TWAN Rivera Attending Clinician Unavailable TWAN SAMANO Attending Clinician Unavailable MARZENA RAYO Attending Clinician Unavailable ELYSE LEWIS Attending Clinician Unavailable YANA BUTLER Attending Clinician Unavailable MAGDA SINGH Attending Clinician UnavailMAGDA Gonzales Attending Clinician UnavailMJ Sky Attending Clinician Unavailable Elyse Williamson Attending Clinician [phone] Pcp-Lab Attending Clinician Unavailable Vitaly Rdz MD Attending Clinician VITALY RDZ Attending Clinician Unavail able Justino Palafox DO Attending Clinician [phone] Lab, Ang - Db Attending Clinician Unavailable Yana Butler MD Attending Clinician [phone] Unknown, Attending Attending Clinician Unavailab ZAFAR Gutierrez Attending Clinician Twan Farnsworth MD Attending Clinician [phone] Nurse, Marquis Bray Attending Clinician Unavailable Fawn Hewitt MD Attending Clinician [phone] FAWN HEWITT Attending Clinician Unavailable FAWN HEWITT Attending Clinician Unavailable CHEYANNE ZELAYA Attending Clinician Unavailable CHEYANNE ZELAYA Attending Clinician Unavailable Doctor Unassigned, [place] Attending Clinician U navailable Lab, Ang - Db Attending Clinician Unavailable Elyse Williamson Attending Clinician [phone] LAMBERT FORD Attending Clinician Unava ilable VERONA, MIKE Attending Clinician Unavailable VERONA, MIKE Attending Clinician Unavailable Doctor Unassigned, [place] Attending Clinician U navailable CHIP TELLO Attending Clinician Unavailable [email or web address]_S Attending Clinician Unavaila MANUELA Rebolledo Attending Clinician Unavailable IRENA AGUILAR Attending Clinician Unavailable EDWIN MEDRANO Attending Clinician Miley Lele Pond MD Attending Clinician [phone] BLANCA SANTIAGO Attending Clinician Unavaila Blanca Umaña Attending Clinician [phone] Manuela Pedersen MD Attending Clinician [phone] Marzena Rayo MD Attending Clinician [phone] ANGY BOTELLO Attending Clinician Unavailab LELE Abel Attending Clinician Unavaila MELVIN Han Attending Clinician Unavailable TWAN SAMANO Admitting Clinician Unavailable MARZENA RAYO Admitting Clinician Unavailable ELYSE LEWIS Admitting Clinician Unavailable [email or web address]_S Admitting Clinician UnavailMarzena العلي MD Admitting Clinician [phone] Payers Payer Name Policy Type Policy Number Effective Date Expirati on Date Source [facility] STAR [id number] 2023 00:00:00 [facility] [id number] 2021 00:00:00 [facility] [id number] 2018 00:00:00 Problems Condition Name Condition Details Condition Category Status Onset Date Resolution Date Last Treatment Date Treating Clinician Comments Source Cervical high risk HPV (human papillomav irus) test positive Cervical high risk HPV (human papillomav irus) test positive Disease Active 2025-0 1-16 00:00: 00 [facility] Rectosigmo iditis Rectosigmo iditis Disease Active 2023-02 0-08 00:00: 00 [facility] Hypokalemi a Hypokalemi a Disease Active 2023-02 0-08 00:00: 00 [facility] Colitis Colitis Disease Active 2023-02 0-08 00:00: 00 [facility] Chronic rhinitis Chronic rhinitis Disease Active 8-02 00:00: 00 [facility] Type 2 diabetes mellitus without complicati on, without long-term current use of insulin Type 2 diabetes mellitus without complicati on, without long-term current use of insulin Disease Active 3-18 00:00: 00 [facility] Acquired hypothyroi dism Acquired hypothyroi dism Disease Active 1-11 00:00: 00 [facility] Rash Rash Disease Active 1 00:00: 00 [facility] Allergy to environmen yasmine factors Allergy to environmen yasmine factors Disease Active 1-11 00:00: 00 [facility] Vitamin D deficiency Vitamin D deficiency Disease Active 1-24 00:00: 00 [facility] ALYCIA (obstructi ve sleep apnea) ALYCIA (obstructi ve sleep apnea) Disease Active 5-23 00:00: 00 [facility] Arthritis of lumbar spine Arthritis of lumbar spine Disease Active 5-13 00:00: 00 [facility] Screening for colorectal cancer Screening for colorectal cancer Disease Active 06-11 00:00: 00 Overview: Formattin g of this note might be different from the original. Added automatic ally from request for surgery [id number] [facility] Chronic insomnia Chronic insomnia Disease Active 21 00:00: 00 [facility] Need for hepatitis A and B vaccinatio n Need for hepatitis A and B vaccinatio n Disease Active 4-17 00:00: 00 Overview: Formattin g of this note might be different from the original. Schedule: 0, 1, and 6 months; Angelo shook diagnosis code: Fatty liver K76.0 [facility] Hyperchole sterolemia Hyperchole sterolemia Disease Active 05-05 00:00: 00 [facility] Obesity (BMI 30-39.9) Obesity (BMI 30-39.9) Disease Active 05-05 00:00: 00 [facility] History of Graves' disease History of Graves' disease Disease Active 04-09 00:00: 00 [facility] Palpitatio ns Palpitatio ns Disease Active 04-09 00:00: 00 [facility] Prediabete s Prediabete s Disease Active [facility] Postablati ve hypothyroi dism Postablati ve hypothyroi dism Disease Active [facility] Abnormal liver function tests Abnormal liver function tests Disease Active [facility] Fatty liver Fatty liver Disease Active Overview: Formattin g of this note might be different from the original. "very mild" per Radiology report 04/2018 [facility] Abnormal SPEP Abnormal SPEP Disease Resolve d 06-02 00:00: 00 2021-03-11 00:00:00 2021-03-11 20:08:09 [facility] Allergies, Adverse Reactions, Alerts Allergy Name Allergy Type Status Severity Reaction(s) Onset Date Inactive Date Treating Clinician Comments Source NITROFUR ANTOIN MONOHYD/ M-CRYST DRUG Active Other-Cmnt 05-27 00:00: 00 [facility] Nitrofur antoin Monohyd/ M-Cryst Propensi ty to adverse reaction s Active Other - See comments 05-27 00:00: 00 Severe myalgias [facility] Penicill ins Propensi ty to adverse reaction s Active Hives 07-22 00:00: 00 [facility] Penicill ins Propensi ty to adverse reaction s Active Hives 07-22 00:00: 00 [facility] PENICILL INS Drug Class Active Hives 07-22 00:00: 00 [facility] Penicill ins Propensi ty to adverse reaction s Active Hives 07-22 00:00: 00 [facility] Social History Social Habit Start Date Stop Date Quantity Comments [facility] intake 2024-03-31 00:00:00 2024-03-31 00:00:00 Current non-drinker of alcohol (finding) [facility] History of Social function 2024-03-28 00:00:00 2024-03-28 00:00:00 [facility] Alcohol intake 2023-06-18 00:00:00 2023-06-18 00:00:00 Current non-drinker of alcohol (finding) [facility] Exposure to SARS-CoV-2 (event) 2022-04-13 00:00:00 2022-04-23 14:00:00 Not sure [facility] Tobacco use and exposure 2022-03-06 00:00:00 2022-03-06 00:00:00 Smokeless tobacco non-user [facility] Sex assigned at 1970 00:00:00 1970 00:00:00 [facility] Smoking Status Start Date Stop Date Source Never smoked tobacco [facility] Medications Ordered Medication Name Filled Medication Name Start Date Stop Date Current Medication? Ordering Clinician Indication Dosage Frequency Signature (SIG) Comments Components Source levothyroxi ne (SYNTHROID) 75 mcg tablet 04-08 00:00: 00 Yes [id number] 75ug Take 1 tablet by mouth every morning. [facility] losartan 25 mg tablet 03-28 00:00: 00 Yes [id number] 25mg Take 1 tablet by mouth in the morning. [facility] rosuvastati n 5 mg tablet 03-28 00:00: 00 Yes [id number] 5mg Take 1 tablet by mouth in the morning. [facility] levocetiriz ine 5 mg tablet 03-28 00:00: 00 Yes [id number] 5mg Take 1 tablet by mouth every evening. [facility] tirzepatide 5 mg/0.5 mL subcutaneou s injection pem 03-28 00:00: 00 Yes [id number] 5mg inject 5 mg under the skin weekly. [facility] methocarbam oL 500 mg tablet 2-10 00:00: 00 Yes [id number] 500mg Take 1 tablet by mouth 3 (three) times daily as needed for Pain (scale 7-10). [facility] naproxen 500 mg tablet 2-10 00:00: 00 Yes [id number] 500mg Take 1 tablet by mouth 2 (two) times daily as needed for Alternate with [place] for pain scale 1-3. [facility] levothyroxi ne (SYNTHROID) 50 mcg tablet 2-10 00:00: 00 04-08 00:00 :00 No [id number] 50ug Take 1 tablet by mouth every morning. BRAND MEDICALLY NECESSARY. Discontinu e levothyrox ine 75mcg. [facility] ketorolac (TORADOL) injection 30 mg 2-05 22:30: 00 03-23 21:27 :27 No [id number] 30mg [facility] methylPREDN ISolone acetate (DEPO-MEDRO L) injection 40 mg 2-05 22:15: 00 03-23 21:31 :00 No [id number] 40mg 40 mg, Intramuscu lar, ONCE, 1 dose, On Thu03/23/24 at 1615, Routine [facility] ketorolac (TORADOL) injection 30 mg 2-05 21:27: 00 03-23 21:27 :00 No [id number] 30mg 30 mg, Intramuscu lar, ONCE, 1 dose, On Thu03/23/24 at 1530, Routine [facility] methocarbam oL 500 mg tablet 2-05 00:00: 00 Yes [id number] 500mg Take 1 tablet by mouth 4 (four) times daily. [facility] levothyroxi ne (SYNTHROID) 50 mcg tablet 1-02 00:00: 00 03-28 00:00 :00 No [id number] 50ug Take 1 tablet by mouth every morning. BRAND MEDICALLY NECESSARY. Discontinu e levothyrox ine 75mcg. [facility] tirzepatide 5 mg/0.5 mL subcutaneou s injection pem 2023-02 00:00: 00 03-28 00:00 :00 No [id number] 5mg inject 5 mg under the skin weekly. [facility] iopamidol (ISOVUE 370-500 mL) injection 80 mL 2023-02 16:00: 00 12-22 15:03 :00 No [id number] 80mL 80 mL, Intravenou s, ONCE, 1 dose, On Thu12/23/23 at 1000, Routine [facility] tirzepatide (MOUNJARO SC) 2023-02 11:12: 05 03-28 00:00 :00 No inject under the skin. [facility] sodium,pota ssium,mag sulfates 17.5-3.13-1 .6 gram 2023-02 00:00: 00 12-19 04:59 :00 No [id number] 177mL Take 177 mL by mouth in the morning for 2 doses. [facility] tirzepatide 5 mg/0.5 mL subcutaneou s injection 2023-02 00:00: 00 01-06 00:00 :00 No [id number] 5mg inject 5 mg under the skin weekly. [facility] clindamycin 150 mg capsule 11-15 00:00: 00 Yes 150mg Take 1 capsule by mouth in the morning and 1 capsule at noon and 1 capsule in the evening. [facility] metroNIDAZO LE 500 mg tablet 11-12 00:00: 00 12-16 00:00 :00 No 500mg Take 1 tablet by mouth every 12 (twelve) hours. [facility] levothyroxi ne (SYNTHROID) 50 mcg tablet 11-04 00:00: 00 02-16 00:00 :00 No [id number] 50ug Take 1 tablet by mouth every morning. BRAND MEDICALLY NECESSARY. Discontinu e levothyrox ine 75mcg. [facility] Nitrofurant oin&Nit. Macrocryst (MACROBID) 100 mg capsule 9-05 00:00: 00 12-16 00:00 :00 No [id number] 100mg Take 1 capsule by mouth in the morning and 1 capsule in the evening. [facility] montelukast 10 mg tablet 09-23 00:00: 00 Yes [id number] 10mg Take 1 tablet by mouth in the morning. [facility] polymyxin B sulf-trimet hoprim 10,000 unit- 1 mg/mL ophthalmic drops 09-23 00:00: 00 Yes [id number] 1[drp] Place 1 Drop in right eye every 4 (four) hours. [facility] tirzepatide 5 mg/0.5 mL subcutaneou s injection 09-23 00:00: 00 12-06 00:00 :00 No [id number] 5mg inject 5 mg under the skin weekly. [facility] ergocalcife rol, vitamin d2, 1,250 mcg (50,000 unit) capsule 09-17 00:00: 00 Yes [id number] 19311M Take 1 capsule by mouth weekly. [facility] rosuvastati n 5 mg tablet 09-17 00:00: 00 03-28 00:00 :00 No [id number] 5mg Take 1 tablet by mouth in the morning. [facility] losartan 25 mg tablet 09-17 00:00: 00 03-28 00:00 :00 No [id number] 25mg Take 1 tablet by mouth in the morning. [facility] tirzepatide 5 mg/0.5 mL subcutaneou s injection 08-10 00:00: 00 09-23 00:00 :00 No [id number] 5mg inject 5 mg under the skin weekly. [facility] levothyroxi ne (SYNTHROID) 50 mcg tablet 08-02 00:00: 00 11-04 00:00 :00 No [id number] 50ug Take 1 tablet by mouth every morning. BRAND MEDICALLY NECESSARY. Discontinu e levothyrox ine 75mcg. [facility] clotrimazol e 1 % solution 07-22 00:00: 00 12-16 00:00 :00 No [id number] Apply to area(s) 2 (two) times daily. [facility] ergocalcife rol, vitamin d2, 1,250 mcg (50,000 unit) capsule 07-22 00:00: 00 09-17 00:00 :00 No [id number] Take 1 capsule by mouth weekly. [facility] methylPREDN ISolone 4 mg tablets 07-22 00:00: 00 07-29 04:59 :00 No [id number] Take by mouth SEE-INSTRU CTIONS for 6 days. follow package directions [facility] fluconazole 200 mg tablet 07-22 00:00: 07-26 04:59 :00 No [id number] 200mg Take 1 tablet by mouth in the morning for 3 days. [facility] tirzepatide 5 mg/0.5 mL subcutaneou s injection 06-17 00:00: 00 08-09 00:00 :00 No [id number] 5mg inject 5 mg under the skin weekly. [facility] rosuvastati n 5 mg tablet 18 00:00: 00 09-17 00:00 :00 No [id number] 5mg Take 1 tablet by mouth in the morning. [facility] losartan 25 mg tablet 4-18 00:00: 00 09-17 00:00 :00 No [id number] 25mg Take 1 tablet by mouth in the morning. [facility] metFORMIN 500 mg tablet 3-19 00:00: 00 07-22 00:00 :00 No [id number] 500mg Take 1 tablet by mouth in the morning and 1 tablet in the evening. Take with meals. [facility] tirzepatide 2.5 mg/0.5 mL subcutaneou s injection 05-03 00:00: 00 Yes [id number] 2.5mg inject 2.5 mg under the skin weekly. [facility] levothyroxi ne (SYNTHROID) 50 mcg tablet 05-03 00:00: 00 08-01 00:00 :00 No [id number] 50ug Take 1 tablet by mouth every morning. BRAND MEDICALLY NECESSARY. Discontinu e levothyrox ine 75mcg. [facility] losartan 25 mg tablet 05-03 00:00: 00 05-31 00:00 :00 No [id number] 25mg Take 1 tablet by mouth in the morning. [facility] rosuvastati n 5 mg tablet 05-03 00:00: 00 05-31 00:00 :00 No [id number] 5mg Take 1 tablet by mouth in the morning. [facility] montelukast 10 mg tablet 02-26 00:00: 00 09-23 00:00 :00 No [id number] 10mg Take 1 tablet by mouth in the morning. [facility] ergocalcife rol, vitamin d2, 1,250 mcg (50,000 unit) capsule 02-26 00:00: 00 07-22 00:00 :00 No [id number] Take 1 capsule by mouth weekly. [facility] levothyroxi ne (SYNTHROID) 50 mcg tablet 02-26 00:00: 00 05-03 00:00 :00 No [id number] 50ug Take 1 tablet by mouth every morning. BRAND MEDICALLY NECESSARY. Discontinu e levothyrox ine 75mcg. [facility] predniSONE 20 mg tablet 02-18 00:00: 00 07-22 00:00 :00 No TAKE 2 TABLETS BY MOUTH ONCE DAILY FOR 5 DAYS [facility] hydrOXYzine 50 mg tablet 2022-02-15 00:00: 00 07-22 00:00 :00 No TAKE 1 TABLET BY MOUTH EVERY 8 HOURS NEEDED [facility] levothyroxi ne (SYNTHROID) 50 mcg tablet 2022-02 0- 00:00: 00 02-26 00:00 :00 No [id number] 50ug Take 1 tablet by mouth every morning. BRAND MEDICALLY NECESSARY. Discontinu e levothyrox ine 75mcg. [facility] levothyroxi ne (SYNTHROID) 50 mcg tablet 3 00:00: 00 11-25 00:00 :00 No [id number] 50ug Take 1 tablet by mouth every morning. BRAND MEDICALLY NECESSARY. Discontinu e levothyrox ine 75mcg. [facility] levothyroxi ne (SYNTHROID) 50 mcg tablet 04-26 00:00: 00 Yes [id number] 50ug Take 1 tablet by mouth every morning. BRAND MEDICALLY NECESSARY. Discontinu e levothyrox ine 75mcg. [facility] ergocalcife rol, vitamin d2, 1,250 mcg (50,000 unit) capsule 04-25 00:00: 00 02-26 00:00 :00 No [id number] Take 1 capsule by mouth weekly. [facility] fluticasone propionate 50 mcg/actuati on nasal spray 03-06 00:00: 00 Yes [id number] 1{spray } Use 1 [place] in each nostril in the morning. [facility] levocetiriz ine 5 mg tablet 03-06 00:00: 00 03-28 00:00 :00 No [id number] 5mg Take 1 tablet by mouth every evening. [facility] montelukast 10 mg tablet 03-06 00:00: 00 02-26 00:00 :00 No [id number] 10mg Take 1 tablet by mouth in the morning. [facility] ergocalcife rol, vitamin d2, 1,250 mcg (50,000 unit) capsule 03-06 00:00: 00 04-25 00:00 :00 No [id number] Take 1 capsule by mouth weekly. Take with food. [facility] levothyroxi ne (SYNTHROID) 50 mcg tablet 03-06 00:00: 00 04-24 00:00 :00 No [id number] 50ug Take 1 tablet by mouth every morning. BRAND MEDICALLY NECESSARY. Discontinu e levothyrox ine 75mcg. [facility] EUTHYROX 75 mcg tablet 8-09 00:00: 00 03-06 00:00 :00 No [id number] TAKE 1 TABLET BY MOUTH ONCE DAILY IN THE MORNING [facility] estradiol-n orethindron e 0.05-0.25 mg/24 hr patch 06-13 00:00: 00 06-12 00:00 :00 No [id number] 1{patch } Apply 1 Patch to skin 2 (two) times per week. [facility] Estradiol-N orethindron e Acet (ACTIVELLA) 0.5-0.1 mg tablet 06-12 00:00: 00 Yes [id number] 1{tbl} Take 1 tablet by mouth daily. [facility] sulfamethox azole-trime thoprim (BACTRIM) 400-80 mg per tablet 06-12 00:00: 00 05-03 00:00 :00 No [id number] 1{tbl} Take 1 tablet by mouth 2 (two) times daily. [facility] ergocalcife rol, vitamin d2, 1,250 mcg (50,000 unit) capsule 03-11 00:00: 00 03-06 00:00 :00 No [id number] Take 1 capsule by mouth weekly. Take with food. [facility] SYNTHROID 50 mcg tablet 03-11 00:00: 00 03-06 00:00 :00 No [id number] 50ug Take 1 tablet by mouth every morning. BRAND MEDICALLY NECESSARY. Discontinu e levothyrox ine 75mcg. [facility] LEVOTHYROXI NE 75 mcg tablet 08-13 00:00: 00 03-11 00:00 :00 No [id number] TAKE 1 TABLET BY MOUTH EVERY DAY IN THE MORNING [facility] Immunizations Ordered Immunization Name Filled Immunization Name Date Status Comments Source Flu Injectable MDCK Pres-Free (FLUCELVAX) 2024-01-29 00:00:00 Completed [facility] TDAP 2023-11-06 00:00:00 Completed [facility] SARS-COV-2 COVID-19 MODERNA 12+ YRS VACCINE 2023-11-06 00:00:00 Completed [facility] Influenza Virus Vaccine 2023-11-06 00:00:00 Completed [facility] Varicella (varivax)(chicken pox) 2023-11-06 00:00:00 Completed [facility] Hepatitis A Adult 2023-11-06 00:00:00 Completed [facility] Meningococcal B, Recombinant 2023-11-06 00:00:00 Completed [facility] HEPLISAV HEP B, ADULT 2 DOSE, IM 2023-11-06 00:00:00 Completed [facility] Influenza Virus Vaccine Recomb Quad IM, Preserv and ABX Free 18-64 YRS 2023-11-06 00:00:00 Completed [facility] Influenza Virus Vaccine Quad .5 mL IM 6+ MO (FLUZONE/FLULAVAL/FL UARIX) 2023-11-06 00:00:00 Completed [facility] TDAP 2023-10-16 00:00:00 Completed [facility] SARS-COV-2 COVID-19 MODERNA 12+ YRS VACCINE 2023-10-16 00:00:00 Completed [facility] Varicella (varivax)(chicken pox) 2023-10-16 00:00:00 Completed [facility] Hepatitis A Adult 2023-10-16 00:00:00 Completed [facility] HEPLISAV HEP B, ADULT 2 DOSE, IM 2023-10-16 00:00:00 Completed [facility] Influenza Virus Vaccine Quad .5 mL IM 6+ MO (FLUZONE/FLULAVAL/FL UARIX) 2023-10-16 00:00:00 Completed [facility] TDAP 2023-08-02 00:00:00 Completed [facility] SARS-COV-2 COVID-19 MODERNA 12+ YRS VACCINE 2023-08-02 00:00:00 Completed [facility] Influenza Virus Vaccine 2023-08-02 00:00:00 Completed [facility] Varicella (varivax)(chicken pox) 2023-08-02 00:00:00 Completed [facility] Hepatitis A Adult 2023-08-02 00:00:00 Completed [facility] Meningococcal B, Recombinant 2023-08-02 00:00:00 Completed [facility] HEPLISAV HEP B, ADULT 2 DOSE, IM 2023-08-02 00:00:00 Completed [facility] Influenza Virus Vaccine Recomb Quad IM, Preserv and ABX Free 18-64 YRS 2023-08-02 00:00:00 Completed [facility] Influenza Virus Vaccine Quad .5 mL IM 6+ MO (FLUZONE/FLULAVAL/FL UARIX) 2023-08-02 00:00:00 Completed [facility] Influenza Virus Vaccine 2023-07-23 11:00:00 Completed [facility] Meningococcal B, Recombinant 2023-07-23 11:00:00 Completed [facility] Influenza Virus Vaccine Recomb Quad IM, Preserv and ABX Free 18-64 YRS 2023-07-23 11:00:00 Completed [facility] TDAP 2023-07-23 11:00:00 Completed [facility] SARS-COV-2 COVID-19 MODERNA 12+ YRS VACCINE 2023-07-23 11:00:00 Completed [facility] Varicella (varivax)(chicken pox) 2023-07-23 11:00:00 Completed [facility] Hepatitis A Adult 2023-07-23 11:00:00 Completed [facility] HEPLISAV HEP B, ADULT 2 DOSE, IM 2023-07-23 11:00:00 Completed [facility] Influenza Virus Vaccine Quad .5 mL IM 6+ MO (FLUZONE/FLULAVAL/FL UARIX) 2023-07-23 11:00:00 Completed [facility] TDAP 2023-07-20 00:00:00 Completed [facility] SARS-COV-2 COVID-19 MODERNA 12+ YRS VACCINE 2023-07-20 00:00:00 Completed [facility] Influenza Virus Vaccine 2023-07-20 00:00:00 Completed [facility] Varicella (varivax)(chicken pox) 2023-07-20 00:00:00 Completed [facility] Hepatitis A Adult 2023-07-20 00:00:00 Completed [facility] Meningococcal B, Recombinant 2023-07-20 00:00:00 Completed [facility] HEPLISAV HEP B, ADULT 2 DOSE, IM 2023-07-20 00:00:00 Completed [facility] Influenza Virus Vaccine Recomb Quad IM, Preserv and ABX Free 18-64 YRS 2023-07-20 00:00:00 Completed [facility] Influenza Virus Vaccine Quad .5 mL IM 6+ MO (FLUZONE/FLULAVAL/FL UARIX) 2023-07-20 00:00:00 Completed [facility] TDAP 2023-06-29 11:40:00 Completed [facility] SARS-COV-2 COVID-19 MODERNA 12+ YRS VACCINE 2023-06-29 11:40:00 Completed [facility] Influenza Virus Vaccine 2023-06-29 11:40:00 Completed [facility] Varicella (varivax)(chicken pox) 2023-06-29 11:40:00 Completed [facility] Hepatitis A Adult 2023-06-29 11:40:00 Completed [facility] Meningococcal B, Recombinant 2023-06-29 11:40:00 Completed [facility] HEPLISAV HEP B, ADULT 2 DOSE, IM 2023-06-29 11:40:00 Completed [facility] Influenza Virus Vaccine Recomb Quad IM, Preserv and ABX Free 18-64 YRS 2023-06-29 11:40:00 Completed [facility] Influenza Virus Vaccine Quad .5 mL IM 6+ MO (FLUZONE/FLULAVAL/FL UARIX) 2023-06-29 11:40:00 Completed [facility] TDAP 2023-06-18 14:30:00 Completed [facility] SARS-COV-2 COVID-19 MODERNA 12+ YRS VACCINE 2023-06-18 14:30:00 Completed [facility] Influenza Virus Vaccine 2023-06-18 14:30:00 Completed [facility] Varicella (varivax)(chicken pox) 2023-06-18 14:30:00 Completed [facility] Hepatitis A Adult 2023-06-18 14:30:00 Completed [facility] Meningococcal B, Recombinant 2023-06-18 14:30:00 Completed [facility] HEPLISAV HEP B, ADULT 2 DOSE, IM 2023-06-18 14:30:00 Completed [facility] Influenza Virus Vaccine Recomb Quad IM, Preserv and ABX Free 18-64 YRS 2023-06-18 14:30:00 Completed [facility] Influenza Virus Vaccine Quad .5 mL IM 6+ MO (FLUZONE/FLULAVAL/FL UARIX) 2023-06-18 14:30:00 Completed [facility] TDAP 2023-06-15 00:00:00 Completed [facility] SARS-COV-2 COVID-19 MODERNA 12+ YRS VACCINE 2023-06-15 00:00:00 Completed [facility] Influenza Virus Vaccine 2023-06-15 00:00:00 Completed [facility] Varicella (varivax)(chicken pox) 2023-06-15 00:00:00 Completed [facility] Hepatitis A Adult 2023-06-15 00:00:00 Completed [facility] Meningococcal B, Recombinant 2023-06-15 00:00:00 Completed [facility] HEPLISAV HEP B, ADULT 2 DOSE, IM 2023-06-15 00:00:00 Completed [facility] Influenza Virus Vaccine Recomb Quad IM, Preserv and ABX Free 1864 YRS 2023-06-15 00:00:00 Completed [facility] Influenza Virus Vaccine Quad .5 mL IM 6+ MO (FLUZONE/FLULAVAL/FL UARIX) 2023-06-15 00:00:00 Completed [facility] TDAP 2023-06-15 00:00:00 Completed [facility] SARS-COV-2 COVID-19 MODERNA 12+ YRS VACCINE 2023-06-15 00:00:00 Completed [facility] Influenza Virus Vaccine 2023-06-15 00:00:00 Completed [facility] Varicella (varivax)(chicken pox) 2023-06-15 00:00:00 Completed [facility] Hepatitis A Adult 2023-06-15 00:00:00 Completed [facility] Meningococcal B, Recombinant 2023-06-15 00:00:00 Completed [facility] HEPLISAV HEP B, ADULT 2 DOSE, IM 2023-06-15 00:00:00 Completed [facility] Influenza Virus Vaccine Recomb Quad IM, Preserv and ABX Free 18-64 YRS 2023-06-15 00:00:00 Completed [facility] Influenza Virus Vaccine Quad .5 mL IM 6+ MO (FLUZONE/FLULAVAL/FL UARIX) 2023-06-15 00:00:00 Completed [facility] TDAP 2023-06-03 00:00:00 Completed [facility] SARS-COV-2 COVID-19 MODERNA 12+ YRS VACCINE 2023-06-03 00:00:00 Completed [facility] Influenza Virus Vaccine 2023-06-03 00:00:00 Completed [facility] Varicella (varivax)(chicken pox) 2023-06-03 00:00:00 Completed [facility] Hepatitis A Adult 2023-06-03 00:00:00 Completed [facility] Meningococcal B, Recombinant 2023-06-03 00:00:00 Completed [facility] HEPLISAV HEP B, ADULT 2 DOSE, IM 2023-06-03 00:00:00 Completed [facility] Influenza Virus Vaccine Recomb Quad IM, Preserv and ABX Free 18-64 YRS 2023-06-03 00:00:00 Completed [facility] Influenza Virus Vaccine Quad .5 mL IM 6+ MO (FLUZONE/FLULAVAL/FL UARIX) 2023-06-03 00:00:00 Completed [facility] TDAP 2023-06-02 00:00:00 Completed [facility] SARS-COV-2 COVID-19 MODERNA 12+ YRS VACCINE 2023-06-02 00:00:00 Completed [facility] Influenza Virus Vaccine 2023-06-02 00:00:00 Completed [facility] Varicella (varivax)(chicken pox) 2023-06-02 00:00:00 Completed [facility] Hepatitis A Adult 2023-06-02 00:00:00 Completed [facility] Meningococcal B, Recombinant 2023-06-02 00:00:00 Completed [facility] HEPLISAV HEP B, ADULT 2 DOSE, IM 2023-06-02 00:00:00 Completed [facility] Influenza Virus Vaccine Recomb Quad IM, Preserv and ABX Free 18-64 YRS 2023-06-02 00:00:00 Completed [facility] Influenza Virus Vaccine Quad .5 mL IM 6+ MO (FLUZONE/FLULAVAL/FL UARIX) 2023-06-02 00:00:00 Completed [facility] TDAP 2023-06-01 00:00:00 Completed [facility] SARS-COV-2 COVID-19 MODERNA 12+ YRS VACCINE 2023-06-01 00:00:00 Completed [facility] Influenza Virus Vaccine 2023-06-01 00:00:00 Completed [facility] Varicella (varivax)(chicken pox) 2023-06-01 00:00:00 Completed [facility] Hepatitis A Adult 2023-06-01 00:00:00 Completed [facility] Meningococcal B, Recombinant 2023-06-01 00:00:00 Completed [facility] HEPLISAV HEP B, ADULT 2 DOSE, IM 2023-06-01 00:00:00 Completed [facility] Influenza Virus Vaccine Recomb Quad IM, Preserv and ABX Free 18-64 YRS 2023-06-01 00:00:00 Completed [facility] Influenza Virus Vaccine Quad .5 mL IM 6+ MO (FLUZONE/FLULAVAL/FL UARIX) 2023-06-01 00:00:00 Completed [facility] TDAP 2023-05-29 00:00:00 Completed [facility] SARS-COV-2 COVID-19 MODERNA 12+ YRS VACCINE 2023-05-29 00:00:00 Completed [facility] Influenza Virus Vaccine 2023-05-29 00:00:00 Completed [facility] Varicella (varivax)(chicken pox) 2023-05-29 00:00:00 Completed [facility] Hepatitis A Adult 2023-05-29 00:00:00 Completed [facility] Meningococcal B, Recombinant 2023-05-29 00:00:00 Completed [facility] HEPLISAV HEP B, ADULT 2 DOSE, IM 2023-05-29 00:00:00 Completed [facility] Influenza Virus Vaccine Recomb Quad IM, Preserv and ABX Free 18-64 YRS 2023-05-29 00:00:00 Completed [facility] Influenza Virus Vaccine Quad .5 mL IM 6+ MO (FLUZONE/FLULAVAL/FL UARIX) 2023-05-29 00:00:00 Completed [facility] TDAP 2023-05-29 00:00:00 Completed [facility] SARS-COV-2 COVID-19 MODERNA 12+ YRS VACCINE 2023-05-29 00:00:00 Completed [facility] Influenza Virus Vaccine 2023-05-29 00:00:00 Completed [facility] Varicella (varivax)(chicken pox) 2023-05-29 00:00:00 Completed [facility] Hepatitis A Adult 2023-05-29 00:00:00 Completed [facility] Meningococcal B, Recombinant 2023-05-29 00:00:00 Completed [facility] HEPLISAV HEP B, ADULT 2 DOSE, IM 2023-05-29 00:00:00 Completed [facility] Influenza Virus Vaccine Recomb Quad IM, Preserv and ABX Free 18-64 YRS 2023-05-29 00:00:00 Completed [facility] Influenza Virus Vaccine Quad .5 mL IM 6+ MO (FLUZONE/FLULAVAL/FL UARIX) 2023-05-29 00:00:00 Completed [facility] TDAP 2023-05-24 00:00:00 Completed [facility] SARS-COV-2 COVID-19 MODERNA 12+ YRS VACCINE 2023-05-24 00:00:00 Completed [facility] Influenza Virus Vaccine 2023-05-24 00:00:00 Completed [facility] Varicella (varivax)(chicken pox) 2023-05-24 00:00:00 Completed [facility] Hepatitis A Adult 2023-05-24 00:00:00 Completed [facility] Meningococcal B, Recombinant 2023-05-24 00:00:00 Completed [facility] HEPLISAV HEP B, ADULT 2 DOSE, IM 2023-05-24 00:00:00 Completed [facility] Influenza Virus Vaccine Recomb Quad IM, Preserv and ABX Free 18-64 YRS 2023-05-24 00:00:00 Completed [facility] Influenza Virus Vaccine Quad .5 mL IM 6+ MO (FLUZONE/FLULAVAL/FL UARIX) 2023-05-24 00:00:00 Completed [facility] TDAP 2023-05-24 00:00:00 Completed [facility] SARS-COV-2 COVID-19 MODERNA 12+ YRS VACCINE 2023-05-24 00:00:00 Completed [facility] Influenza Virus Vaccine 2023-05-24 00:00:00 Completed [facility] Varicella (varivax)(chicken pox) 2023-05-24 00:00:00 Completed [facility] Hepatitis A Adult 2023-05-24 00:00:00 Completed [facility] Meningococcal B, Recombinant 2023-05-24 00:00:00 Completed [facility] HEPLISAV HEP B, ADULT 2 DOSE, IM 2023-05-24 00:00:00 Completed [facility] Influenza Virus Vaccine Recomb Quad IM, Preserv and ABX Free 18-64 YRS 2023-05-24 00:00:00 Completed [facility] Influenza Virus Vaccine Quad .5 mL IM 6+ MO (FLUZONE/FLULAVAL/FL UARIX) 2023-05-24 00:00:00 Completed [facility] TDAP 2023-05-05 09:30:00 Completed [facility] SARS-COV-2 COVID-19 MODERNA 12+ YRS VACCINE 2023-05-05 09:30:00 Completed [facility] Influenza Virus Vaccine 2023-05-05 09:30:00 Completed [facility] Varicella (varivax)(chicken pox) 2023-05-05 09:30:00 Completed [facility] Hepatitis A Adult 2023-05-05 09:30:00 Completed [facility] Meningococcal B, Recombinant 2023-05-05 09:30:00 Completed [facility] HEPLISAV HEP B, ADULT 2 DOSE, IM 2023-05-05 09:30:00 Completed [facility] Influenza Virus Vaccine Recomb Quad IM, Preserv and ABX Free 18-64 YRS 2023-05-05 09:30:00 Completed [facility] Influenza Virus Vaccine Quad .5 mL IM 6+ MO (FLUZONE/FLULAVAL/FL UARIX) 2023-05-05 09:30:00 Completed [facility] TDAP 2023-05-05 00:00:00 Completed [facility] SARS-COV-2 COVID-19 MODERNA 12+ YRS VACCINE 2023-05-05 00:00:00 Completed [facility] Influenza Virus Vaccine 2023-05-05 00:00:00 Completed [facility] Varicella (varivax)(chicken pox) 2023-05-05 00:00:00 Completed [facility] Hepatitis A Adult 2023-05-05 00:00:00 Completed [facility] Meningococcal B, Recombinant 2023-05-05 00:00:00 Completed [facility] HEPLISAV HEP B, ADULT 2 DOSE, IM 2023-05-05 00:00:00 Completed [facility] Influenza Virus Vaccine Recomb Quad IM, Preserv and ABX Free 18-64 YRS 2023-05-05 00:00:00 Completed [facility] Influenza Virus Vaccine Quad .5 mL IM 6+ MO (FLUZONE/FLULAVAL/FL UARIX) 2023-05-05 00:00:00 Completed [facility] TDAP 2023-05-04 16:00:00 Completed [facility] SARS-COV-2 COVID-19 MODERNA 12+ YRS VACCINE 2023-05-04 16:00:00 Completed [facility] Influenza Virus Vaccine 2023-05-04 16:00:00 Completed [facility] Varicella (varivax)(chicken pox) 2023-05-04 16:00:00 Completed [facility] Hepatitis A Adult 2023-05-04 16:00:00 Completed [facility] Meningococcal B, Recombinant 2023-05-04 16:00:00 Completed [facility] HEPLISAV HEP B, ADULT 2 DOSE, IM 2023-05-04 16:00:00 Completed [facility] Influenza Virus Vaccine Recomb Quad IM, Preserv and ABX Free 18-64 YRS 2023-05-04 16:00:00 Completed [facility] Influenza Virus Vaccine Quad .5 mL IM 6+ MO (FLUZONE/FLULAVAL/FL UARIX) 2023-05-04 16:00:00 Completed [facility] TDAP 2023-05-04 15:30:00 Completed [facility] SARS-COV-2 COVID-19 MODERNA 12+ YRS VACCINE 2023-05-04 15:30:00 Completed [facility] Influenza Virus Vaccine 2023-05-04 15:30:00 Completed [facility] Varicella (varivax)(chicken pox) 2023-05-04 15:30:00 Completed [facility] Hepatitis A Adult 2023-05-04 15:30:00 Completed [facility] Meningococcal B, Recombinant 2023-05-04 15:30:00 Completed [facility] HEPLISAV HEP B, ADULT 2 DOSE, IM 2023-05-04 15:30:00 Completed [facility] Influenza Virus Vaccine Recomb Quad IM, Preserv and ABX Free 18-64 YRS 2023-05-04 15:30:00 Completed [facility] Influenza Virus Vaccine Quad .5 mL IM 6+ MO (FLUZONE/FLULAVAL/FL UARIX) 2023-05-04 15:30:00 Completed [facility] TDAP 2023-03-02 00:00:00 Completed [facility] SARS-COV-2 COVID-19 MODERNA 12+ YRS VACCINE 2023-03-02 00:00:00 Completed [facility] Influenza Virus Vaccine 2023-03-02 00:00:00 Completed [facility] Varicella (varivax)(chicken pox) 2023-03-02 00:00:00 Completed [facility] Hepatitis A Adult 2023-03-02 00:00:00 Completed [facility] Meningococcal B, Recombinant 2023-03-02 00:00:00 Completed [facility] HEPLISAV HEP B, ADULT 2 DOSE, IM 2023-03-02 00:00:00 Completed [facility] Influenza Virus Vaccine Recomb Quad IM, Preserv and ABX Free 18-64 YRS 2023-03-02 00:00:00 Completed [facility] Influenza Virus Vaccine Quad .5 mL IM 6+ MO (FLUZONE/FLULAVAL/FL UARIX) 2023-03-02 00:00:00 Completed [facility] TDAP 2023-02-26 16:00:00 Completed [facility] SARS-COV-2 COVID-19 MODERNA 12+ YRS VACCINE 2023-02-26 16:00:00 Completed [facility] Influenza Virus Vaccine 2023-02-26 16:00:00 Completed [facility] Varicella (varivax)(chicken pox) 2023-02-26 16:00:00 Completed [facility] Hepatitis A Adult 2023-02-26 16:00:00 Completed [facility] Meningococcal B, Recombinant 2023-02-26 16:00:00 Completed [facility] HEPLISAV HEP B, ADULT 2 DOSE, IM 2023-02-26 16:00:00 Completed [facility] Influenza Virus Vaccine Recomb Quad IM, Preserv and ABX Free 1864 YRS 2023-02-26 16:00:00 Completed [facility] Influenza Virus Vaccine Quad .5 mL IM 6+ MO (FLUZONE/FLULAVAL/FL UARIX) 2023-02-26 16:00:00 Completed [facility] Influenza Virus Vaccine 2023-02-26 15:30:00 Completed [facility] Meningococcal B, Recombinant 2023-02-26 15:30:00 Completed [facility] Influenza Virus Vaccine Recomb Quad IM, Preserv and ABX Free 18-64 YRS 2023-02-26 15:30:00 Completed [facility] TDAP 2023-02-26 15:30:00 Completed [facility] SARS-COV-2 COVID-19 MODERNA 12+ YRS VACCINE 2023-02-26 15:30:00 Completed [facility] Varicella (varivax)(chicken pox) 2023-02-26 15:30:00 Completed [facility] Hepatitis A Adult 2023-02-26 15:30:00 Completed [facility] HEPLISAV HEP B, ADULT 2 DOSE, IM 2023-02-26 15:30:00 Completed [facility] Influenza Virus Vaccine Quad .5 mL IM 6+ MO (FLUZONE/FLULAVAL/FL UARIX) 2023-02-26 15:30:00 Completed [facility] TDAP 2022-11-26 00:00:00 Completed [facility] SARS-COV-2 COVID-19 MODERNA 12+ YRS VACCINE 2022-11-26 00:00:00 Completed [facility] Influenza Virus Vaccine 2022-11-26 00:00:00 Completed [facility] TDAP 2022-11-25 00:00:00 Completed [facility] SARS-COV-2 COVID-19 MODERNA 12+ YRS VACCINE 2022-11-25 00:00:00 Completed [facility] Influenza Virus Vaccine 2022-11-25 00:00:00 Completed [facility] TDAP 2021-07-18 00:00:00 Completed [facility] SARS-COV-2 COVID-19 MODERNA 12+ YRS VACCINE 2021-07-18 00:00:00 Completed [facility] Influenza Virus Vaccine 2021-07-18 00:00:00 Completed [facility] TDAP 2021-06-14 00:00:00 Completed [facility] SARS-COV-2 COVID-19 MODERNA 12+ YRS VACCINE 2021-06-14 00:00:00 Completed [facility] Influenza Virus Vaccine 2021-06-14 00:00:00 Completed [facility] TDAP 2021-04-24 00:00:00 Completed [facility] SARS-COV-2 COVID-19 MODERNA 12+ YRS VACCINE 2021-04-24 00:00:00 Completed [facility] Influenza Virus Vaccine 2021-04-24 00:00:00 Completed [facility] TDAP 2021-04-05 00:00:00 Completed [facility] SARS-COV-2 COVID-19 MODERNA 12+ YRS VACCINE 2021-04-05 00:00:00 Completed [facility] Influenza Virus Vaccine 2021-04-05 00:00:00 Completed [facility] SARS-COV-2 COVID-19 MODERNA VACCINE 2021-03-06 00:00:00 Completed [facility] SARS-COV-2 COVID-19 MODERNA VACCINE 2021-03-06 00:00:00 Completed [facility] SARS-COV-2 COVID-19 MODERNA 12+ YRS VACCINE 2021-03-06 00:00:00 Completed [facility] SARS-COV-2 COVID-19 MODERNA 12+ YRS VACCINE 2021-03-06 00:00:00 Completed [facility] SARS-COV-2 COVID-19 MODERNA 12+ YRS VACCINE 2021-03-06 00:00:00 Completed [facility] SARS-COV-2 COVID-19 MODERNA 12+ YRS VACCINE 2021-03-06 00:00:00 Completed [facility] SARS-COV-2 COVID-19 MODERNA 12+ YRS VACCINE 2021-03-06 00:00:00 Completed [facility] SARS-COV-2 COVID-19 MODERNA 12+ YRS VACCINE 2021-03-06 00:00:00 Completed [facility] SARS-COV-2 COVID-19 MODERNA 12+ YRS VACCINE 2021-03-06 00:00:00 Completed [facility] SARS-COV-2 COVID-19 MODERNA 12+ YRS VACCINE 2021-03-06 00:00:00 Completed [facility] TDAP 2021-03-05 00:00:00 Completed [facility] SARS-COV-2 COVID-19 MODERNA 12+ YRS VACCINE 2021-03-05 00:00:00 Completed [facility] Influenza Virus Vaccine 2021-03-05 00:00:00 Completed [facility] TDAP 2021-03-01 00:00:00 Completed [facility] SARS-COV-2 COVID-19 MODERNA 12+ YRS VACCINE 2021-03-01 00:00:00 Completed [facility] Influenza Virus Vaccine 2021-03-01 00:00:00 Completed [facility] Influenza Virus Vaccine 2020-11-16 00:00:00 Completed [facility] Influenza Virus Vaccine 2020-11-16 00:00:00 Completed [facility] Influenza Virus Vaccine 2020-11-16 00:00:00 Completed [facility] Influenza Virus Vaccine 2020-11-16 00:00:00 Completed [facility] Influenza Virus Vaccine 2020-11-16 00:00:00 Completed [facility] Influenza Virus Vaccine 2020-11-16 00:00:00 Completed [facility] Influenza Virus Vaccine 2020-11-16 00:00:00 Completed [facility] Influenza Virus Vaccine 2020-11-16 00:00:00 Completed [facility] Influenza Virus Vaccine 2020-11-16 00:00:00 Completed [facility] Influenza Virus Vaccine 2020-11-16 00:00:00 Completed [facility] SARS-COV-2 COVID-19 MODERNA 12+ YRS VACCINE 2020-09-03 00:00:00 Completed SARS-COV-2 COVID-19 MODERNA VACCINE 2020-09-03 00:00:00 Completed [facility] SARS-COV-2 COVID-19 MODERNA VACCINE 2020-09-03 00:00:00 Completed [facility] SARS-COV-2 COVID-19 MODERNA 12+ YRS VACCINE 2020-09-03 00:00:00 Completed [facility] SARS-COV-2 COVID-19 MODERNA 12+ YRS VACCINE 2020-09-03 00:00:00 Completed [facility] SARS-COV-2 COVID-19 MODERNA 12+ YRS VACCINE 2020-09-03 00:00:00 Completed [facility] SARS-COV-2 COVID-19 MODERNA 12+ YRS VACCINE 2020-09-03 00:00:00 Completed [facility] SARS-COV-2 COVID-19 MODERNA 12+ YRS VACCINE 2020-09-03 00:00:00 Completed [facility] SARS-COV-2 COVID-19 MODERNA 12+ YRS VACCINE 2020-09-03 00:00:00 Completed [facility] SARS-COV-2 COVID-19 MODERNA 12+ YRS VACCINE 2020-09-03 00:00:00 Completed [facility] SARS-COV-2 COVID-19 MODERNA 12+ YRS VACCINE 2020-09-03 00:00:00 Completed [facility] SARS-COV-2 COVID-19 MODERNA VACCINE 2020-07-30 00:00:00 Completed [facility] SARS-COV-2 COVID-19 MODERNA VACCINE 2020-07-30 00:00:00 Completed [facility] SARS-COV-2 COVID-19 MODERNA 12+ YRS VACCINE 2020-07-30 00:00:00 Completed [facility] SARS-COV-2 COVID-19 MODERNA 12+ YRS VACCINE 2020-07-30 00:00:00 Completed [facility] SARS-COV-2 COVID-19 MODERNA 12+ YRS VACCINE 2020-07-30 00:00:00 Completed [facility] SARS-COV-2 COVID-19 MODERNA 12+ YRS VACCINE 2020-07-30 00:00:00 Completed [facility] SARS-COV-2 COVID-19 MODERNA 12+ YRS VACCINE 2020-07-30 00:00:00 Completed [facility] SARS-COV-2 COVID-19 MODERNA 12+ YRS VACCINE 2020-07-30 00:00:00 Completed [facility] SARS-COV-2 COVID-19 MODERNA 12+ YRS VACCINE 2020-07-30 00:00:00 Completed [facility] SARS-COV-2 COVID-19 MODERNA 12+ YRS VACCINE 2020-07-30 00:00:00 Completed [facility] TDAP 2015-02-16 00:00:00 Completed [facility] TDAP 2015-02-16 00:00:00 Completed [facility] TDAP 2015-02-16 00:00:00 Completed [facility] TDAP 2015-02-16 00:00:00 Completed [facility] TDAP 2015-02-16 00:00:00 Completed [facility] TDAP 2015-02-16 00:00:00 Completed [facility] TDAP 2015-02-16 00:00:00 Completed [facility] TDAP 2015-02-16 00:00:00 Completed [facility] TDAP 2015-02-16 00:00:00 Completed [facility] TDAP 2015-02-16 00:00:00 Completed [facility] Vital Signs Vital Name Observation Time Observation Value Comments Megha cain Systolic blood pressure 2024-04-08 14:49:00 129 mm[Hg] [facility] Diastolic blood pressure 2024-04-08 14:49:00 79 mm[Hg] [facility] Heart rate 2024-04-08 14:49:00 83 /min [facility] Body height 2024-04-08 14:49:00 157.5 cm [facility] Body weight 2024-04-08 14:49:00 69.31 kg [facility] BMI 2024-04-08 14:49:00 27.95 kg/m2 [facility] Oxygen saturation in Arterial blood by Pulse oximetry 2024-04-08 14:49:00 100 /min [facility] Systolic blood pressure 2024-03-31 14:02:00 120 mm[Hg] [facility] Diastolic blood pressure 2024-03-31 14:02:00 81 mm[Hg] [facility] Heart rate 2024-03-31 14:02:00 67 /min [facility] Body temperature 2024-03-31 14:02:00 35.39 Stacy [facility] Respiratory rate 2024-03-31 14:02:00 18 /min [facility] Body height 2024-03-31 14:02:00 157.5 cm [facility] Body weight 2024-03-31 14:02:00 68.72 kg [facility] BMI 2024-03-31 14:02:00 27.71 kg/m2 [facility] Oxygen saturation in Arterial blood by Pulse oximetry 2024-03-31 14:02:00 100 /min [facility] Systolic blood pressure 2024-03-28 21:18:00 103 mm[Hg] [facility] Diastolic blood pressure 2024-03-28 21:18:00 70 mm[Hg] [facility] Heart rate 2024-03-28 21:18:00 72 /min [facility] Body height 2024-03-28 21:18:00 157.5 cm [facility] Body weight 2024-03-28 21:18:00 67.132 kg [facility] BMI 2024-03-28 21:18:00 27.07 kg/m2 [facility] Oxygen saturation in Arterial blood by Pulse oximetry 2024-03-28 21:18:00 100 /min [facility] Systolic blood pressure 2024-03-23 21:09:00 120 mm[Hg] [facility] Diastolic blood pressure 2024-03-23 21:09:00 79 mm[Hg] [facility] Heart rate 2024-03-23 21:09:00 63 /min [facility] Body temperature 2024-03-23 21:09:00 36.78 Stacy [facility] Respiratory rate 2024-03-23 21:09:00 14 /min [facility] Body height 2024-03-23 21:09:00 152.4 cm [facility] Body weight 2024-03-23 21:09:00 67.722 kg [facility] BMI 2024-03-23 21:09:00 29.16 kg/m2 [facility] Oxygen saturation in Arterial blood by Pulse oximetry 2024-03-23 21:09:00 100 /min [facility] Systolic blood pressure 2024-03-03 20:50:00 117 mm[Hg] [facility] Diastolic blood pressure 2024-03-03 20:50:00 63 mm[Hg] [facility] Heart rate 2024-03-03 20:50:00 64 /min [facility] Body temperature 2024-03-03 20:50:00 36.44 Stacy [facility] Body height 2024-03-03 20:50:00 152.4 cm [facility] Body weight 2024-03-03 20:50:00 66.407 kg [facility] BMI 2024-03-03 20:50:00 28.59 kg/m2 [facility] Oxygen saturation in Arterial blood by Pulse oximetry 2024-03-03 20:50:00 100 /min [facility] Systolic blood pressure 2023-12-17 14:39:00 126 mm[Hg] [facility] Diastolic blood pressure 2023-12-17 14:39:00 84 mm[Hg] [facility] Heart rate 2023-12-17 14:39:00 59 /min [facility] Body temperature 2023-12-17 14:39:00 36.89 Stacy [facility] Respiratory rate 2023-12-17 14:39:00 20 /min [facility] Body height 2023-12-17 14:39:00 152.4 cm [facility] Body weight 2023-12-17 14:39:00 58.514 kg [facility] BMI 2023-12-17 14:39:00 25.19 kg/m2 [facility] Oxygen saturation in Arterial blood by Pulse oximetry 2023-12-17 14:39:00 98 /min [facility] Systolic blood pressure 2023-11-24 15:55:00 123 mm[Hg] [facility] Diastolic blood pressure 2023-11-24 15:55:00 79 mm[Hg] [facility] Heart rate 2023-11-24 15:55:00 66 /[facility] Body temperature 2023-11-24 15:55:00 36.44 Stacy [facility] Respiratory rate 2023-11-24 15:55:00 18 /min [facility] Body height 2023-11-24 15:55:00 154.9 cm [facility] Body weight 2023-11-24 15:55:00 58.06 kg [facility] BMI 2023-11-24 15:55:00 24.19 kg/m2 [facility] Oxygen saturation in Arterial blood by Pulse oximetry 2023-11-24 15:55:00 99 /min [facility] Systolic blood pressure 2023-09-24 20:10:00 119 mm[Hg] [facility] Diastolic blood pressure 2023-09-24 20:10:00 86 mm[Hg] [facility] Heart rate 2023-09-24 20:10:00 63 /min [facility] Body temperature 2023-09-24 20:10:00 36.83 Stacy [facility] Respiratory rate 2023-09-24 20:10:00 18 /min [facility] Body height 2023-09-24 20:10:00 152.4 cm [facility] Body weight 2023-09-24 20:10:00 62.869 kg [facility] BMI 2023-09-24 20:10:00 27.07 kg/m2 [facility] Oxygen saturation in Arterial blood by Pulse oximetry 2023-09-24 20:10:00 98 /min [facility] Systolic blood pressure 2023-09-18 19:37:00 124 mm[Hg] [facility] Diastolic blood pressure 2023-09-18 19:37:00 84 mm[Hg] [facility] Heart rate 2023-09-18 19:37:00 76 /min [facility] Body temperature 2023-09-18 19:37:00 37.39 Stacy [facility] Body height 2023-09-18 19:37:00 154.9 cm [facility] Body weight 2023-09-18 19:37:00 63.05 kg [facility] BMI 2023-09-18 19:37:00 26.26 kg/m2 [facility] Systolic blood pressure 2023-07-23 15:42:00 115 mm[Hg] [facility] Diastolic blood pressure 2023-07-23 15:42:00 76 mm[Hg] [facility] Heart rate 2023-07-23 15:42:00 74 /min [facility] Body height 2023-07-23 15:42:00 154.9 cm [facility] Body weight 2023-07-23 15:42:00 68.402 kg [facility] BMI 2023-07-23 15:42:00 28.49 kg/m2 [facility] Oxygen saturation in Arterial blood by Pulse oximetry 2023-07-23 15:42:00 98 /min [facility] Systolic blood pressure 2023-06-18 19:34:00 124 mm[Hg] [facility] Diastolic blood pressure 2023-06-18 19:34:00 83 mm[Hg] [facility] Heart rate 2023-06-18 19:34:00 67 /min [facility] Body height 2023-06-18 19:34:00 152.4 cm [facility] Body weight 2023-06-18 19:34:00 73.8 kg [facility] BMI 2023-06-18 19:34:00 31.78 kg/m2 [facility] Oxygen saturation in Arterial blood by Pulse oximetry 2023-06-18 19:34:00 99 /min [facility] Systolic blood pressure 2023-05-04 20:37:00 129 mm[Hg] [facility] Diastolic blood pressure 2023-05-04 20:37:00 86 mm[Hg] [facility] Heart rate 2023-05-04 20:37:00 70 /min [facility] Body height 2023-05-04 20:37:00 152.4 cm [facility] Body weight 2023-05-04 20:37:00 78.291 kg [facility] BMI 2023-05-04 20:37:00 33.71 kg/m2 [facility] Oxygen saturation in Arterial blood by Pulse oximetry 2023-05-04 20:37:00 99 /min [facility] Systolic blood pressure 2023-02-26 21:18:00 117 mm[Hg] [facility] Diastolic blood pressure 2023-02-26 21:18:00 80 mm[Hg] [facility] Heart rate 2023-02-26 21:18:00 81 /min [facility] Body temperature 2023-02-26 21:18:00 35.72 Stacy [facility] Body height 2023-02-26 21:18:00 152.4 cm [facility] Body weight 2023-02-26 21:18:00 78.019 kg [facility] BMI 2023-02-26 21:18:00 33.59 kg/m2 [facility] Oxygen saturation in Arterial blood by Pulse oximetry 2023-02-26 21:18:00 100 /min [facility] Systolic blood pressure 2022-03-06 15:59:00 121 mm[Hg] [facility] Diastolic blood pressure 2022-03-06 15:59:00 82 mm[Hg] [facility] Heart rate 2022-03-06 15:59:00 75 /min [facility] Body temperature 2022-03-06 15:59:00 36.94 Stacy [facility] Body height 2022-03-06 15:59:00 152.4 cm [facility] Body weight 2022-03-06 15:59:00 78.019 kg [facility] BMI 2022-03-06 15:59:00 33.59 kg/m2 [facility] Oxygen saturation in Arterial blood by Pulse oximetry 2022-03-06 15:59:00 99 /min [facility] Systolic blood pressure 2021-06-12 19:16:00 135 mm[Hg] [facility] Diastolic blood pressure 2021-06-12 19:16:00 87 mm[Hg] [facility] Heart rate 2021-06-12 19:16:00 69 /min [facility] Body temperature 2021-06-12 19:16:00 36.83 Stacy [facility] Body weight 2021-06-12 19:16:00 74.481 kg [facility] BMI 2021-06-12 19:16:00 31.04 kg/m2 [facility] Systolic blood pressure 2021-06-12 19:16:00 135 mm[Hg] [facility] Diastolic blood pressure 2021-06-12 19:16:00 87 mm[Hg] [facility] Heart rate 2021-06-12 19:16:00 69 /min [facility] Body temperature 2021-06-12 19:16:00 36.83 Stacy [facility] Body weight 2021-06-12 19:16:00 74.481 kg [facility] BMI 2021-06-12 19:16:00 31.04 kg/m2 [facility] Procedures Procedure Date / Time Performed Performing Clinician Source URINALYSIS 2024-03-31 15:28:00 Vivienne [facility] ANTI-SSB([place]) 2024-03-31 15:19:00 Vivienne [facility] ANTI-DOUBLE STRANDED DNA 2024-03-31 15:19:00 Vivienne [facility] XR LUMBAR SPINE 2 VW 2024-03-28 22:37:25 Blanche Lewis [facility] COMP. METABOLIC PANEL (21591) 2024-03-28 22:16:00 Elyse Lewis [facility] SEDIMENTATION RATE 2024-03-28 22:16:00 Elyse Lewis [facility] CBC WITH DIFF 2024-03-28 22:16:00 Elyse Lewis [facility] FLU VACC ([id number]), 6 MO-64 YRS, .5ML, IM, TIV (FLUCELVAX) 2024-01-29 15:08:13 Doctor Unassigned, [place] [facility] CT ABDOMEN PELVIS W CONTRAST 2023-12-23 15:02:26 Twan Samano [facility] URINE CULTURE 2021-06-12 19:20:00 [facility] POCT URINALYSIS W/O SPECIFIC GRAVITY 2021-06-12 00:00:00 Manuela Pedersen [facility] Encounters Start Date/Time End Date/Time Encounter Type Admission Type Attending Clinicians Care Facility Care Department Encounter ID Source 2023-12-23 10:13:36 Outpatient TWAN TROY PAMELA [facility] [id number] [facility] 2021-06-11 16:01:16 Outpatient MARZENA WHEELER [facility] [id number] [facility] 2024-07-12 16:00:00 2024-07-12 16:00:00 Outpatient R ELYSE LEWIS [facility] [id number] [facility] 2024-05-03 09:00:00 2024-05-03 09:00:00 Outpatient R YANA BUTLER [facility] [id number] [facility] 2024-04-27 07:54:00 2024-04-27 11:05:00 Outpatient R TWAN SAMANO PAMELA [facility] [id number] [facility] 2024-04-15 11:00:00 2024-04-15 11:00:00 Outpatient R MAGDA SINGH CRAIG [facility] [id number] [facility] 2024-04-14 15:00:00 2024-04-14 15:00:00 Outpatient R MJ ESTES [facility] [id number] [facility] 2024-04-08 09:30:00 2024-04-08 09:30:00 [facility] 1..840.114 350.1.13.10 4.2.7.2.686 [id number] [facility] 2024-04-08 09:30:00 2024-04-08 09:02:12 [id number] 2024-04-01 00:00:00 2024-04-01 10:49:48 Telephone Shanaejulianna [facility] 1..840.114 350.1.13.10 4.2.7.2.686 [id number] [facility] 2024-03-31 10:30:00 2024-03-31 10:45:00 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 Pcp-Lab Vitaly Rdz Pcp-Lab [facility] 1..840.114 350.1.13.10 4.2.7.2.686 [id number] [facility] 2024-03-31 08:00:00 2024-03-31 09:06:27 Outpatient R VITALY RDZ [facility] [id number] [facility] 2024-03-31 08:00:00 2024-03-31 09:06:27 Office Visit Vivienne Justino Vitaly Rdz [facility] 1..840.114 350.1.13.10 4.2.7.2.686 [id number] [facility] 2024-03-28 15:58:42 2024-03-28 23:59:00 [facility] 1..840.114 350.1.13.10 4.2.7.2.686 [id number] [facility] 2024-03-28 16:45:00 2024-03-28 17:00:00 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 Lab, Elyse Vincent Lab, Marquis Bray [facility] 1..840.114 350.1.13.10 4.2.7.2.686 [id number] [facility] 2024-03-28 16:45:00 2024-03-28 16:58:30 Outpatient R ELYSE LEWIS [facility] [id number] [facility] 2024-03-28 15:57:52 2024-03-28 15:57:52 Hospital Encounter Joshua [facility] 1..840.114 350.1.13.10 4.2.7.2.686 [id number] [facility] 2024-03-28 15:30:00 2024-03-28 15:53:21 [facility] 1.840.114 350.1.13.10 4.2.7.2.686 [id number] [facility] 2024-03-23 15:00:00 2024-03-23 15:54:59 Outpatient R YANA BUTLER [facility] [id number] [facility] 2024-03-23 15:00:00 2024-03-23 15:54:59 Urgent Care Yana Butler Unknown, Attending [facility] 1.84.114 350.1.13.10 4.2.7.2.686 [id number] [facility] 2024-03-17 16:00:00 2024-03-17 16:00:00 Outpatient R SHANAEAYDE LEVINETHIA [facility] [id number] [facility] 2024-03-14 14:00:00 2024-03-14 14:00:00 Outpatient R AYDE LEWISTHIA [facility] [id number] [facility] 2024-03-03 15:00:00 2024-03-03 16:54:06 Outpatient R TWAN SAMANO TWAN [facility] [id number] [facility] 2024-03-03 15:00:00 2024-03-03 16:54:06 Office Visit Twan Samano [facility]LAQU[facility] PROFESSIO NAL BUILDING 1.84.114 350.1.13.10 4.2.7.2.686 [id number] [facility] 2024-02-17 00:00:00 2024-02-18 16:20:14 [facility] 1.84.114 350.1.13.10 4.2.7.2.686 [id number] [facility] 2024-01-29 09:00:00 2024-01-29 09:20:00 Imm/Inj Visit Nurse, Fawn Sanchez Nurse, Marquis Bray [facility] 1.2.840.114 350.1.13.10 4.2.7.2.686 [id number] [facility] 2024-01-29 09:00:00 2024-01-29 09:00:00 Outpatient FAWN LAKE CHRISTINE [facility] [id number] [facility] 2024-01-07 00:00:00 2024-01-10 09:06:10 Elyse Velasco [facility] 1..840.114 350.1.13.10 4.2.7.2.686 [id number] [facility] 2023-12-23 08:13:47 2023-12-23 23:59:00 Outpatient TWAN TROY PAMELA [facility] [id number] [facility] 2023-12-23 08:13:47 2023-12-23 23:59:00 Hospital Encounter Twan Samano [facility] 1.2.840.114 350.1.13.10 4.2.7.2.686 [id number] [facility] 2023-12-17 10:00:00 2023-12-17 10:30:00 Office Visit Twan Samano [facility] 1.840.114 350.1.13.10 4.2.7.2.686 [id number] [facility] 2023-12-17 10:00:00 2023-12-17 10:00:00 Outpatient R TWAN SAMANO PAMELA [facility] [id number] [facility] 2023-12-14 00:00:00 2023-12-15 08:28:28 Refill Elyse Lewis [facility] DO?[facility] 1.2840.114 350.1.13.10 4.2.7.2.686 [id number] 044 [id number] [facility] 2023-12-09 00:00:00 2023-12-09 12:05:24 Refill Elyse Lewis [facility] DO?[facility] 1.2840.114 350.1.13.10 4.2.7.2.686 [id number] 044 [id number] [facility] 2023-12-07 00:00:00 2023-12-08 09:21:17 Refill Elyse Lewis [facility] DO?[facility] 1.2840.114 350.1.13.10 4.2.7.2.686 [id number] 044 [id number] [facility] 2023-12-07 00:00:00 2023-12-08 09:20:59 [facility] 1.2840.114 350.1.13.10 4.2.7.2.686 [id number] 044 [id number] [facility] 2023-11-30 00:00:00 2023-12-01 07:15:56 Refill Elyse Lewis [facility] DO?[facility] 1.2840.114 350.1.13.10 4.2.7.2.686 [id number] 044 [id number] [facility] 2023-11-25 00:00:00 2023-11-26 07:14:52 Patient Secure Msg Doctor Unassigned, [place] Doctor Unassigned, [place] [facility] DO?[facility] 1.2840.114 350.1.13.10 4.2.7.2.686 [id number] 044 [id number] [facility] 2023-11-25 00:00:00 2023-11-25 13:43:16 Patient Secure Msg Doctor Unassigned, [place] Doctor Unassigned, [place] [facility] DO?[facility] 1.2.840.114 350.1.13.10 4.2.7.2.686 [id number] 044 [id number] [facility] 2023-11-24 11:30:00 2023-11-24 11:45:00 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 Lab, Ang - Db Joshua Elyse Lab, Ang - Db [facility] ERNESTINA?[facility] OFF[facility] 1.284.114 350.1.13.10 4.2.7.2.686 [id number] [facility] 2023-11-24 11:00:00 2023-11-24 11:21:46 Outpatient R ELYSE LEWIS [facility] [id number] [facility] 2023-11-24 11:00:00 2023-11-24 11:21:46 Office Visit [facility] 1.284.114 350.1.13.10 4.2.7.2.686 [id number] 044 [id number] [facility] 2023-11-12 00:00:00 2023-11-12 17:53:45 Telephone [facility] 1.284.114 350.1.13.10 4.2.7.2.686 [id number] 044 [id number] [facility] 2023-11-06 00:00:00 2023-11-09 09:42:51 Patient Secure Msg [facility] Lewis [facility] 1.284.114 350.1.13.10 4.2.7.2.686 [id number] 044 [id number] [facility] 2023-11-05 00:00:00 2023-11-05 08:39:59 [facility] 1.2.840.114 350.1.13.10 4.2.7.2.686 [id number] 044 [id number] [facility] 2023-10-16 00:00:00 2023-10-22 04:05:01 Patient Secure Msg [facility] 1..840.114 350.1.13.10 4.2.7.2.686 [id number] 044 [id number] [facility] 2023-10-16 00:00:00 2023-10-16 08:06:47 [facility] 1.840.114 350.1.13.10 4.2.7.2.686 [id number] 044 [id number] [facility] 2023-09-24 15:00:00 2023-09-24 15:29:39 Outpatient R ELYSE LEWIS [facility] [id number] [facility] 2023-09-24 15:00:00 2023-09-24 15:29:39 [facility] 1.2.840.114 350.1.13.10 4.2.7.2.686 [id number] 044 [id number] [facility] 2023-09-22 00:00:00 2023-09-23 08:57:08 Telephone Blanche LewisRandolph HealthLUMA DO?[facility] 1.2.840.114 350.1.13.10 4.2.7.2.686 [id number] 044 [id number] [facility] 2023-09-18 15:30:00 2023-09-18 15:45:00 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 Lab, Ang - Db [facility] 1.284.114 350.1.13.10 4.2.7.2.686 [id number] [facility] 2023-09-18 14:30:00 2023-09-18 15:17:32 [facility] [id number] 2023-09-18 14:30:00 2023-09-18 15:17:32 Office Visit [facility] 1.284.114 350.1.13.10 4.2.7.2.686 [id number] 044 [id number] [facility] 2023-08-18 09:30:00 2023-08-18 09:30:00 Outpatient R LAMBERT FORD [facility] [id number] [facility] 2023-08-11 00:00:00 2023-08-11 13:13:30 Telephone [facility] 1.2.114 350.1.13.10 4.2.7.2.686 [id number] 044 [id number] [facility] 2023-08-10 00:00:00 2023-08-11 12:23:35 Refill [facility] 1.284.114 350.1.13.10 4.2.7.2.686 [id number] 044 [id number] [facility] 2023-08-02 00:00:00 2023-08-03 07:49:24 Refill [facility]LU[facility] 1.2840.114 350.1.13.10 4.2.7.2.686 [id number] 044 [id number] [facility] 2023-07-23 11:00:00 2023-07-23 11:12:49 Outpatient R ELYSE LEWIS [facility] [id number] [facility] 2023-07-23 11:00:00 2023-07-23 11:12:49 [facility] 1.2.840.114 350.1.13.10 4.2.7.2.686 [id number] 044 [id number] [facility] 2023-07-20 00:00:00 2023-07-21 16:31:44 Telephone [facility] 1..840.114 350.1.13.10 4.2.7.2.686 [id number] 044 [id number] [facility] 2023-06-29 11:49:28 2023-06-29 23:59:00 Outpatient R ELYSE LEWIS [facility] [id number] [facility] 2023-06-29 11:40:00 2023-06-29 23:59:00 Hospital Encounter Elyse Lewis [facility] 1.2.840.114 350.1.13.10 4.2.7.2.686 [id number] [facility] 2023-06-18 14:30:00 2023-06-18 14:50:53 Outpatient R ELYSE LEWIS [facility] [id number] [facility] 2023-06-18 14:30:00 2023-06-18 14:50:53 [facility] 1.2.840.114 350.1.13.10 4.2.7.2.686 [id number] 044 [id number] [facility] 2023-06-15 00:00:00 2023-06-15 00:00:00 Refill Elyse Lewis [facility] DO?[facility] 1.2.840.114 350.1.13.10 4.2.7.2.686 [id number] 044 [id number] [facility] 2023-06-15 00:00:00 2023-06-15 00:00:00 Patient Secure Msg Blanche LewisRandolph HealthLUMA DO?[facility] OFF[facility] BUILD[facility] 1.2.840.114 350.1.13.10 4.2.7.2.686 [id number] 044 [id number] [facility] 2023-06-03 00:00:00 2023-06-03 00:00:00 Telephone [facility] Lewis [facility] 1.2.840.114 350.1.13.10 4.2.7.2.686 [id number] 044 [id number] [facility] 2023-06-02 00:00:00 2023-06-02 00:00:00 Refill [facility] Lewis [facility] 1.2.840.114 350.1.13.10 4.2.7.2.686 [id number] 044 [id number] [facility] 2023-06-01 00:00:00 2023-06-01 00:00:00 Refill [facility] Lewis [facility] BU[facility] 1.2.840.114 350.1.13.10 4.2.7.2.686 [id number] 044 [id number] [facility] 2023-05-29 00:00:00 2023-05-29 00:00:00 Refill [facility] Lewis [facility] 1.2.840.114 350.1.13.10 4.2.7.2.686 [id number] 044 [id number] [facility] 2023-05-29 00:00:00 2023-05-29 00:00:00 Refill [facility] Lewis [facility] 1.2.840.114 350.1.13.10 4.2.7.2.686 [id number] 044 [id number] [facility] 2023-05-24 00:00:00 2023-05-24 00:00:00 Refill Blanche [facility]Rand[facility] HealthLUMA DO?[facility] OFF[facility] 1.2.840.114 350.1.13.10 4.2.7.2.686 [id number] 044 [id number] [facility] 2023-05-24 00:00:00 2023-05-24 00:00:00 [facility] OFF[facility]ILD[facility] 1.2.840.114 350.1.13.10 4.2.7.2.686 [id number] 044 [id number] [facility] 2023-05-05 09:30:00 2023-05-05 09:45:00 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 Lab, Marquis Bray Blanche LewisRandolph HealthLUMA DO?[facility] 1.2.840.114 350.1.13.10 4.2.7.2.686 [id number] [facility] 2023-05-05 09:30:00 2023-05-05 09:43:27 Outpatient R ELYSE LEWIS [facility] [id number] [facility] 2023-05-05 00:00:00 2023-05-05 00:00:00 Telephone [facility] MED[facility] OFF[facility] BUILD[facility] 1.2.840.114 350.1.13.10 4.2.7.2.686 [id number] 044 [id number] [facility] 2023-05-04 16:00:00 2023-05-04 16:15:00 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 Lab, Marquis Jollyjulianna [facility] 1..840.114 350.1.13.10 4.2.7.2.686 [id number] [facility] 2023-05-04 15:30:00 2023-05-04 15:57:10 [facility] [id number] [facility] 2023-05-04 15:30:00 2023-05-04 15:57:10 Office Visit Joshua [facility] MED[facility] OFFICE BUILDING 1..840.114 350.1.13.10 4.2.7.2.686 [id number] 044 [id number] [facility] 2023-03-31 13:30:00 2023-03-31 13:30:00 Outpatient R MIKE RHOADES [facility] [id number] [facility] 2023-03-17 14:30:00 2023-03-17 14:30:00 Outpatient MIKE GRACE [facility] [id number] [facility] 2023-03-02 00:00:00 2023-03-02 00:00:00 Patient Secure Msg Doctor Unassigned, [place] [facility] 1..840.114 350.1.13.10 4.2.7.2.686 [id number] [facility] 2023-02-27 11:00:00 2023-02-27 11:00:00 Outpatient R ELYSE LEWIS [facility] [id number] [facility] 2023-02-26 16:00:00 2023-02-26 16:15:00 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 Lab, Marquis Bray Joshua [facility] MEDICAL OFFICE BUILDING 1..840.114 350.1.13.10 4.2.7.2.686 [id number] [facility] 2023-02-26 15:30:00 2023-02-26 15:30:00 [facility] MED[facility] OFFICE BUILDING 1.2.840.114 350.1.13.10 4.2.7.2.686 [id number] 044 [id number] [facility] 2023-02-26 15:30:00 2023-02-26 15:28:44 Outpatient R JOSHUA ELYSE [facility] [id number] [facility] 2023-01-07 13:30:00 2023-01-07 13:30:00 Outpatient R CHIP TELLO [facility] [id number] [facility] 2022-12-17 00:00:00 2022-12-17 00:00:00 Outpatient GC_GCBZW_Ka diyala_S [facility] [id number] [facility] 2022-11-26 00:00:00 2022-11-26 00:00:00 [facility] 1.2.840.114 350.1.13.10 4.2.7.2.686 [id number] 044 [id number] [facility] 2022-11-25 00:00:00 2022-11-25 00:00:00 [facility]ill [facility] MED[facility] OFFICE BUILDING 1.2.840.114 350.1.13.10 4.2.7.2.686 [id number] [facility] 2022-10-27 16:30:00 2022-10-27 16:30:00 Outpatient R ELYSE LEWIS [facility] [id number] [facility] 2022-09-05 16:30:00 2022-09-05 16:30:00 Outpatient R ELYSE LEWIS [facility] [id number] [facility] 2022-09-05 08:00:00 2022-09-05 08:00:00 Outpatient R ELYSE LEWIS [facility] [id number] [facility] 2022-07-16 00:00:00 2022-07-16 00:00:00 Patient Secure Msg [facility] 1.840.114 350.1.13.10 4.2.7.2.686 [id number] 044 [id number] [facility] 2022-05-13 13:30:00 2022-05-13 13:30:00 Outpatient R MANUELA PEDERSEN [facility] [id number] [facility] 2022-04-25 00:00:00 2022-04-25 00:00:00 Patient Secure Msg [facility] 1.840.114 350.1.13.10 4.2.7.2.686 [id number] 044 [id number] [facility] 2022-04-25 00:00:00 2022-04-25 00:00:00 Refill [facility] OFF[facility] BUILD[facility] 1.840.114 350.1.13.10 4.2.7.2.686 [id number] 044 [id number] [facility] 2022-04-24 00:00:00 2022-04-24 00:00:00 Telephone [facility] MED[facility] OFF[facility] BUILD[facility] 1.840.114 350.1.13.10 4.2.7.2.686 [id number] 044 [id number] [facility] 2022-04-24 00:00:00 2022-04-24 00:00:00 [facility]ill [facility] MED[facility] OFF[facility] BUILDING 1.84.114 350.1.13.10 4.2.7.2.686 [id number] 044 [id number] [facility] 2022-04-24 00:00:00 2022-04-24 00:00:00 Telephone [facility] 1.2.840.114 350.1.13.10 4.2.7.2.686 [id number] 044 [id number] [facility] 2022-04-23 13:45:00 2022-04-23 14:00:00 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 Lab, Ang - Db Joshua [facility] MEDICAL OFFICE BUILDING 1.2.840.114 350.1.13.10 4.2.7.2.686 [id number] [facility] 2022-04-23 13:45:00 2022-04-23 13:45:00 Outpatient R ELYSE LEWIS [facility] [id number] [facility] 2022-04-16 00:00:00 2022-04-16 00:00:00 Outpatient R ELYSE LEWIS [facility] [id number] [facility] 2022-03-28 10:30:00 2022-03-28 10:30:00 Outpatient R MANUELA PEDERSEN [facility] [id number] [facility] 2022-03-07 13:00:00 2022-03-07 13:00:00 Outpatient R IRENA AGUILAR [facility] [id number] [facility] 2022-03-06 10:45:00 2022-03-06 10:45:00 Outpatient R EDWIN MEDRANO [facility] [id number] [facility] 2022-03-06 10:00:00 2022-03-06 10:36:13 Outpatient R ELYSE LEWIS [facility] [id number] [facility] 2022-03-06 10:00:00 2022-03-06 10:36:13 Office Visit Elyse Lewis [facility] ERNESTINA?[facility] 1..840.114 350.1.13.10 4.2.7.2.686 [id number] [facility] 2021-12-12 15:00:00 2021-12-12 15:00:00 Outpatient R MNAUELA PEDERSEN [facility] [id number] [facility] 2021-10-01 13:00:00 2021-10-01 13:00:00 Outpatient R KASH FAWN [facility] [id number] [facility] 2021-09-24 13:20:00 2021-09-24 13:20:00 Outpatient R KASH [facility] [id number] [facility] 2021-09-24 00:00:00 2021-09-24 00:00:00 Lele Jimenez A [facility] ERNESTINA?[facility] 1..840.114 350.1.13.10 4.2.7.2.686 [id number] 044 [id number] [facility] 2021-07-18 00:00:00 2021-07-18 00:00:00 Patient Secure Msg Doctor Unassigned, [place] [facility] 1..840.114 350.1.13.10 4.2.7.2.686 [id number] [facility] 2021-07-12 08:00:00 2021-07-12 08:17:17 Outpatient R BLANCA SANTIAGO [facility] [id number] [facility] 2021-07-12 08:00:00 2021-07-12 08:17:17 Office Visit Estella Santiagotney [facility] BUILD[facility] 1..840.114 350.1.13.10 4.2.7.2.686 [id number] [facility] 2021-06-17 00:00:00 2021-06-17 00:00:00 Letter (Out) Manuela Pedersen [facility] PROFESSIO [facility] 1.2840.114 350.1.13.10 4.2.7.2.686 [id number] [facility] 2021-06-14 08:07:00 2021-06-14 11:38:00 Outpatient R MARZENA RAYO [facility] VINNIE [id number] [facility] 2021-06-14 08:07:00 2021-06-14 11:38:00 Hospital Encounter Rayo Marzena [facility] 1.2840.114 350.1.13.10 4.2.7.2.686 [id number] [facility] 2021-06-14 09:21:00 2021-06-14 10:11:00 Surgery Marzena Rayo [facility] 1.2840.114 350.1.13.10 4.2.7.2.686 [id number] [facility] 2021-06-14 00:00:00 2021-06-14 00:00:00 Orders Only Doctor Unassigned, [place] [facility] 1.2840.114 350.1.13.10 4.2.7.2.686 [id number] [facility] 2021-06-14 00:00:00 2021-06-14 00:00:00 Patient Secure Msg Doctor Unassigned, [place] [facility] 1.20.114 350.1.13.10 4.2.7.2.686 [id number] [facility] 2021-06-12 14:00:00 2021-06-12 14:45:20 Outpatient R MANUELA PEDERSEN [facility] [id number] [facility] 2021-06-12 14:00:00 2021-06-12 14:45:20 Office [facility] AdManuela thom[facility] 1.2.840.114 350.1.13.10 4.2.7.2.686 [id number] [facility] 2021-06-12 14:00:00 2021-06-12 14:45:20 Outpatient R ADMANUELA THOMPSON [facility] [id number] [facility] 2021-06-12 14:00:00 2021-06-12 14:45:20 Office Visit AdManuela thompson [facility] 1.2.840.114 350.1.13.10 4.2.7.2.686 [id number] [facility] 2021-06-12 14:00:00 2021-06-12 14:45:20 Outpatient R ADMANUELA THOMPSON [facility] [id number] [facility] 2021-06-12 00:00:00 2021-06-12 00:00:00 Telephone [facility] 1.2.840.114 350.1.13.10 4.2.7.2.686 [id number] [facility] 2021-06-04 13:30:00 2021-06-04 13:30:00 Outpatient R ALEJAMANUELA THOMPSON [facility] [id number] [facility] 2021-05-07 13:30:00 2021-05-07 13:30:00 Outpatient R FUNMI [facility] [id number] [facility] 2021-05-07 13:30:00 2021-05-07 13:30:00 Outpatient R ADJAY [facility] [id number] [facility] 2021-05-02 00:00:00 2021-05-02 00:00:00 Prep For Surgery Marzena Rayo [facility] 1.2.840.114 350.1.13.10 4.2.7.2.686 [id number] [facility] 2021-04-30 13:30:00 2021-04-30 14:41:12 Outpatient R MARZENA RAYO [facility] [id number] [facility] 2021-04-30 13:30:00 2021-04-30 14:41:12 Office Visit Marzena Rayo [facility] 1.2840.114 350.1.13.10 4.2.7.2.686 [id number] [facility] 2021-04-30 00:00:00 2021-04-30 00:00:00 Orders Only Doctor Unassigned, [place] [facility] 1.2840.114 350.1.13.10 4.2.7.2.686 [id number] [facility] 2021-04-30 00:00:00 2021-04-30 00:00:00 Telephone Marzena Rayo [facility] 1.2840.114 350.1.13.10 4.2.7.2.686 [id number] [facility] 2021-04-30 00:00:00 2021-04-30 00:00:00 Letter (Out) Marzena Rayo [facility] 1.2840.114 350.1.13.10 4.2.7.2.686 [id number] [facility] 2021-04-24 00:00:00 2021-04-24 00:00:00 Patient Secure Msg Doctor Unassigned, [place] [facility] 1.2840.114 350.1.13.10 4.2.7.2.686 [id number] [facility] 2021-04-10 00:00:00 2021-04-10 00:00:00 Telephone AdManuela thompson [facility] 1.2.840.114 350.1.13.10 4.2.7.2.686 [id number] [facility] 2021-04-05 10:15:00 2021-04-05 10:15:00 Outpatient R [facility] [id number] [facility] 2021-04-05 10:15:00 2021-04-05 10:15:00 Outpatient R ROSMERY ANGY [facility] [id number] [facility] 2021-04-05 00:00:00 2021-04-05 00:00:00 Patient Secure Msg AdManuela thompson [facility] 1.2.840.114 350.1.13.10 4.2.7.2.686 [id number] [facility] 2021-03-26 10:30:00 2021-03-26 11:17:39 Outpatient R MNAUELA PEDERSEN [facility] [id number] [facility] 2021-03-26 10:30:00 2021-03-26 11:17:39 Office Visit AdManuela thompson [facility] 1.2.840.114 350.1.13.10 4.2.7.2.686 [id number] 134 [id number] [facility] 2021-03-26 10:30:00 2021-03-26 11:17:39 [facility]ELA [facility] [facility] [id number] [facility] 2021-03-18 00:00:00 2021-03-18 00:00:00 Outpatient R LELE VILLATORO [facility] [id number] [facility] 2021-03-11 00:00:00 2021-03-11 00:00:00 Case Management [facility] [id number] 350.1.13.10 4.2.7.2.686 [id number] [facility] 2021-03-06 00:00:00 2021-03-06 00:00:00 Telephone Lele Villatoro [facility] VALERIA MASTERSONE?[facility] BU[facility] [id number] 350.1.13.10 4.2.7.2.686 [id number] [facility] 2021-03-05 00:00:00 2021-03-05 00:00:00 Patient Secure Msg [facility] BU[facility] 1.2840.114 350.1.13.10 4.2.7.2.686 [id number] [facility] 2021-03-01 00:00:00 2021-03-01 00:00:00 Case Management Lele Villatoro [facility] MED[facility] OFF[facility] BUILD[facility] 1.2840.114 350.1.13.10 4.2.7.2.686 [id number] [facility] 2021-03-01 00:00:00 2021-03-01 00:00:00 Patient Secure Msg Lele Villatoro [facility] MED[facility] OFF[facility] BU[facility] 1.2.840.114 350.1.13.10 4.2.7.2.686 [id number] [facility] 2021-02-28 17:00:00 2021-02-28 17:15:00 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 Lab, Marquis Bray Lele Villatoro [facility] MASTERSONE?[facility] MED[facility] OFF[facility] BUILDING 1.2.840.114 350.1.13.10 4.2.7.2.686 [id number] [facility] 2021-02-28 16:15:00 2021-02-28 16:22:42 Office Visit IrvingBhargavi munguiashonda Pineda [facility] 1.2.840.114 350.1.13.10 4.2.7.2.686 [id number] [facility] 2021-02-28 16:15:00 2021-02-28 16:22:42 Outpatient R LELE VILLATORO [facility] [id number] [facility] 2021-02-28 16:15:00 2021-02-28 16:22:42 Outpatient R IRVING BHARGAVISHONDA [facility] [id number] [facility] 2021-02-28 00:00:00 2021-02-28 00:00:00 Orders Only Doctor Unassigned, [place] [facility] [id number] 350.1.13.10 4.2.7.2.686 [id number] [facility] 2020-04-06 16:15:00 2020-04-06 16:15:00 Outpatient R LELE VILLATORO [facility] [id number] [facility] 2020-04-02 15:45:00 2020-04-02 15:45:00 Outpatient R LELE VILLATORO [facility] [id number] [facility] 2020-03-23 15:30:00 2020-03-23 15:30:00 Outpatient R LELE VILLATORO [facility] [id number] [facility] 2020-02-23 10:45:00 2020-02-23 10:45:00 Outpatient R LELE VILLATORO [facility] [id number] [facility] 2020-02-13 13:15:00 2020-02-13 13:15:00 Outpatient R LELE VILLATORO [facility] [id number] [facility] 2019-12-26 11:15:00 2019-12-26 11:15:00 Outpatient R LELE VILLATORO [facility] [id number] [facility] 2019-10-04 16:00:00 2019-10-04 16:00:00 Outpatient LELE GAMBOA [facility] [id number] [facility] 2019-08-15 17:40:00 2019-08-15 17:40:00 Outpatient ELYSE ZUNIGA [facility] [id number] [facility] 2019-07-29 14:00:00 2019-07-29 14:00:00 Outpatient MELVIN REYES [facility] [id number] [facility] 2019-06-01 08:30:00 2019-06-01 08:30:00 Outpatient Randy MELVIN BROWNE [facility] [id number] [facility] 2019-05-26 09:05:00 2019-05-26 09:05:00 Outpatient LELE GAMBOA [facility] [id number] [facility] 2019-05-16 07:45:00 2019-05-16 07:45:00 Outpatient LELE GAMBOA [facility] [id number] [facility] 2019-05-12 08:15:00 2019-05-12 08:15:00 Outpatient LELE GAMBOA [facility] [id number] [facility] 2019-05-05 15:45:00 2019-05-05 15:45:00 Outpatient LELE GAMBOA [facility] [id number] [facility] Results Test Description Test Time Test Comments Results Result Co mments Source [facility]2024-04-01 18:48:31* Test Item Value Reference Range Interpretation Comme nts Anti-SSB(LA) (test code = 9305186000) Negative Negative ALEKSANDRA (test code = ALEKSANDRA) Positive - Antibod y detected.Negative - No antibody detected. Lab Interpretation (test code = 86844-7) Normal [facility]-Double Stranded [id number] 18:48:31* Test Item Value Reference Range Interpretation Comme nts ANTI-DSDNA (test code = 9626631765) 0.0-4.0 ALEKSANDRA (test code = ALEKSANDRA) Negative ? ?< or = 4 IU/mLPositive ? ? ?> or = 10 IU/mLIndeterminate ?5-9 IU/mL Lab Interpretation (test code = 81088-7) Normal [facility]-Hanson(SM)2024-04-01 18:48:31* Test Item Value Reference Range Interpretation Comme nts Anti-Hanson (test code = 9614003605) Negative Negative ALEKSANDRA (test code = ALEKSANDRA) Positive - Antibod y detected.Negative - No antibody detected. Lab Interpretation (test code = 74796-8) Normal [facility] ResourcesSedimentation [id number] 04:28:35* Test Item Value Reference Range Interpretation Comme nts ESR (test code = 81960-7) 13 0-20 Lab Interpretation (test cod e = 84204-6) Normal [facility]. Metabolic Panel (31795)2024-03-29 04:10:51* Test Item Value Reference Range Interpretation Comme nts NA (test code = 8424893337) 138 mmol/L 135-145 K (test code = 6840531840) 4.2 mmol/L 3.5-5.0 CL (test code = 8373866292) 102 mmol/L 98-108 CO2 TOTAL (test code = 8175634418) 27 mmol/L 23-31 AGAP (test code = 0550773999) 9 2-16 BUN (test code = 0961635230) 14 mg/dL 7-23 GLUCOSE (test code = 5483856274) 81 mg/dL 70-110 CREATININE (test code = 2160-0) 0.65 mg/dL 0.50-1.04 TOTAL BILI (test code = 7599069288) 0.7 mg/dL 0.1-1.1 CALCIUM (test code = 5956472098) 9.7 mg/dL 8.6-10.6 T PROTEIN (test code = 1623970587) 8.5 g/dL 6.3-8.2 H ALBUMIN (test code = 3727692946) 4.8 g/dL 3.5-5.0 ALK PHOS (test code = 6029162898) 76 U/L 34-122 ALTv (test code = 1742-6) 42 U/L 5-35 H AST(SGOT) (test code = 3855972159) 52 U/L 13-40 H eGFR (test code = 26976-9) 106.7 mL/min/1.73m2 CKD-EPI eGFR (2020). Assuming creatinine has been stable day-to-day for at least three months, the eGFR indicates Category G1 (>= 90 mL/min/1.73 m2) Lab Interpretation (test code = 74596-4) Abnormal [facility] with [id number] 03:47:51* Test Item Value Reference Range Interpretation Comme nts WBC (test code = 6690-2) 5.14 4.30-11.10 RBC (test code = 789-8) 4.54 3.93-5.25 HGB (test code = 718-7) 13.3 g/dL 11.6-15.0 HCT (test code = 4544-3) 41.7 % 35.7-45.2 MCV (test code = 787-2) 91.9 fL 80.6-95.5 MCH (test code = 785-6) 29.3 pg 25.9-32.8 MCHC (test code = 786-4) 31.9 g/dL 31.6-35.1 RDW-SD (test code = 62330-0) 49.1 fL 39.0-49.9 RDW-CV (test code = 788-0) 14.4 % 12.0-15.5 PLT (test code = 777-3) 183 166-358 MPV (test code = 59398-2) 11.5 fL 9.5-12.9 NRBC/100 WBC (test code = 3057663314) 0.0 0.0-10.0 NRBC x10^3 (test code = 9242394282) See_Comment [Automated messa ge] The system which generated this result transmitted reference range: 10*3/?L. The reference range was not used to interpret this result as normal/abnormal. GRAN MAT (NEUT) % (test code = 770-8) 57.0 % IMM GRAN % (test code = 3224912133) 0.20 % LYMPH % (test code = 736-9) 34.8 % MONO % (test code = 5905-5) 4.3 % EOS % (test code = 713-8) 2.3 % BASO % (test code = 706-2) 1.4 % GRAN MAT x10^3(ANC) (test code = 7751558346) 2.93 10*3/uL 1.88-7.09 IMM GRAN x10^3 (test code = 2166131139) 0.00-0.06 LYMPH x10^3 (test code = 731-0) 1.79 10*3/uL 1.32-3.29 MONO x10^3 (test code = 742-7) 0.22 10*3/uL 0.33-0.92 L EOS x10^3 (test code = 711-2) 0.12 10*3/uL 0.03-0.39 BASO x10^3 (test code = 704-7) 0.07 10*3/uL 0.01-0.07 Lab Interpretation (test code = 29932-9) Abnormal [facility] ResourcesXR Lumbar spine 2 [id number] 22:38:28XR LUMBAR SPINE 2 VW HISTORY: Female 53 years recurrent lumbar pain- right COMPARISON: Lumbar radiographs dated 06/28/2018 FINDINGS: The vertebral bodies are normal in height and in normal alignment. Minimaldegenerative changes are present. No acute osseous abnormality.[facility] ResourcesCT ABDOMEN PELVIS W [id number] 15:17:40CT Abdomen and Pelvis with intravenous contrast. CLINICAL HISTORY: Follow-up of left colon colitis.. DOSE: Up-to-date CT equipment and radiation dose reduction techniques wereemployed. CTDIvol: ? mGy. DLP: ?mGy-cm. TECHNIQUE : Contiguous axial imaging from the level of the lung basesthrough the pubic symphysis were performed after the uncomplicatedadministration of nonionic contrast material. ?Coronal and sagittalreconstructions were obtained. Auto mA and/or iterative reconstruction wereused toreduce radiation dose. FINDINGS: ? Lower lungs: Clear. No pleural effusion or pericardial effusion.Nodefinite evidence of hiatal hernia. Liver, Gallbladder and Spleen: Liver measures 15.2 cm and spleen isapproximately 9 x 3.4 cm. No focal lesions visualized in the liver or inthe spleen. Gallbladder is unremarkable. Biliary duct and the pancreaticduct appear of normal size. Peritoneum: ?No free air or free fluid. No lymphadenopathy. Pancreas and Adrenals: ?Unremarkable pancreas and adrenal glands. Kidneys and Ureters: ?No visible calculi in the renal collecting systems. No hydroureter or hydro nephrosis. Vessels: Normal. Retroperitoneum: No abnormal fluid or lymphadenopathy. Bowel: ?Constipation with large fecal load throughout. No focal changes ofcolitis detected. No signs of appendicitis. Small bowel gas pattern isunremarkable. Bladder and Reproductive Organs: ?Elongated shaped uterus in theretroflexed position in the pelvis noted. No gross pathology in theunderdistended and unopacified urinary bladder. No free fluid in ezakmf-ej-wrt. Bones: ?Exaggerated lumbar lordosis. No acute bony pathology. Soft tissues: Small fat-containing umbilical hernia without anycomplications. CONCLUSION: Constipation with large amount of fecal load noted throughoutcolon. No signs of colitis.[facility] Resources[facility] URINALYSIS W/O SPECIFIC [id number] 19:17:00* Test Item Value Reference Range Interpretation Comme nts POCT PH U (test code = 3254) 7 mg/dl 5-8 POCT U LEUK EST (test code = 3263) Trace Negative - Negative POCT U NIT (test code = 3262) + Negative - Negati ve POCT U PROT (test code = 3259) Negative Negative - Negat torey POCT U GLU (test code = 3256) normal Negative - Negati ve POCT U KETONE (test code = 3258) Negative Negative - Neg ative POCT U BLD (test code = 3257) Trace Negative - Negati ve [facility] Notes Date/Time Note Provider Source 2024-04-18 16:13:32 Levocetrizine 5mg tab prior auth. Denied YAH Myers MA [facility] 2024-04-04 16:43:13 PA for Levocetrizine initiated on 04/04/2024 (Wooten: [id number]) PA Rx #: [id number] Will provide updates as recd [facility] 2024-04-01 10:41:20 Received PA Wooten: [id number] Placed in provider box [facility] Jose G Valerio [facility] 2024-03-31 10:30:00 Images from the original note were not included. Venipuncture collection performed by clean technique on the right anticubitus. Total of 1 attempts were made. Slight pressure and a bandage/dressing were applied to the site(s). The patient experienced no complications. The following specimens were processed according to instructions and sent to [facility] laboratories per lab order on 03/31/2024 : LT BLUE SST 2 RED LAV PPT DK GREEN (LiHep) DK GREEN (SodH) EMMANUEL DK BLUE (K2) DK BLUE (S) ACD Blood Culture NIPT/NTD Patient has been identified by and name and was provided with cup, antiseptic towelette, and clean catch instructions. 1 urine specimen(s) sent. Unpreserved 1 Urine Culture Aptima tube Other urine [facility] 2024-03-28 16:45:00 Images from the original note were not included. Venipuncture collection performed by clean technique on the right anticubitus. Total of 1 attempts were made. Slight pressure and a bandage/dressing were applied to the site(s). The patient experienced no complications. The following specimens were processed according to instructions and sent to [facility] laboratories per lab order on 03/28/2024 : LT BLUE SST 4 RED LAV 2 PPT DK GREEN (LiHep) DK GREEN (SodH) EMMANUEL DK BLUE (K2) DK BLUE (S) ACD Blood Culture NIPT/NTD [facility] 2024-03-28 15:30:00 Addended by: MEL LEWIS DNP-ELYSE PENG on: 03/30/2024 09:20 AM Modules accepted: Orders [facility] 2024-02-18 16:19:43 Images from the original note were not included. Notes: Last Refilled: levothyroxine (SYNTHROID) 50 mcg tablet Sig: Take 1 tablet by mouth every morning. BRAND MEDICALLY NECESSARY. Discontinue levothyroxine 75mcg. Disp: 90 tablet Refills: 0 Start: 02/17/2024 Class: eRX For: Acquired hypothyroidism Last ordered: 3 months ago (11/05/2023) by MEL Driscoll Endocrinology: Hypothyroid Agents Bhhgxl2102/17/2024 07:52 AM Protocol Details Manual Review: ENT providers forward refill request to PCP. Valid encounter within last 12 months TSH in normal range and within 360 days To be filled at: [facility] [address] [place] [address] Recent Visits Date Type Provider Dept 11/24/23 Office Visit Elyse Lewis FNP [facility] 09/24/23 Office Visit Elyse Lewis FNP [facility] 09/18/23 Office Visit Elyse Lewis FNP [facility] 07/23/23 Office Visit Elyse Lewis FNP [facility] 06/18/23 Office Visit Elyse Lewis FNP [facility] 05/04/23 Office Visit Elyse Lewis FNP [facility] 02/26/23 Office Visit Elyse Lewis FNP [facility] Showing recent visits within past 540 days with a meds authorizing provider and meeting all other requirements Future Appointments Date Type Provider Dept 03/28/24 Appointment Elyse Lewis FNP [facility] Showing future appointments within next 150 days with a meds authorizing provider and meeting all other requirements [facility] 2024-01-08 07:11:56 Last Refilled: Disp Refills Start End BAILEY tirzepatide 5 mg/0.5 mL subcutaneous injection 6 mL 0 12/08/2023 -- -- Sig: inject 5 mg under the skin weekly. Sent to pharmacy as: tirzepatide 5 mg/0.5 mL subcutaneous pen injector (DEON) Class: eRX Route: Subcutaneous Order: [id number] Date/Time Signed: 12/08/2023 09:21 E-Prescribing Status: Receipt confirmed by pharmacy (12/08/2023 9:21 AM CDT) Notes: Recent Visits Date Type Provider Dept 11/24/23 Office Visit Elyse Lewis, [employer]ISH[employer] [facility] 09/24/23 Office Visit Ayde Lewisthia, [employer] FINISHER [facility] 09/18/23 Office Visit Ayde Lewisthia, [employer] FINISHER [facility] 07/23/23 Office Visit Anejulianna, Elyse, [employer] FINISH[employer] [facility] 06/18/23 Office Visit AneBlanche levinea, [employer] FINISHER [facility] 05/04/23 Office Visit Blanche Lewisa, [employer] FINISHER [facility] 02/26/23 Office Visit Blanche Lewisa, [employer] FINISHER [facility] Showing recent visits within past 540 days with a meds authorizing provider and meeting all other requirements Future Appointments Date Type Provider Dept 03/28/24 Appointment Elyse Lewis, [employer] FINISHER [facility] Showing future appointments within next 150 days with a meds authorizing provider and meeting all other requirements YAH Nelson RN [facility] 2023-12-15 08:25:17 Images from the original note were not included. Notes: 12/08/23 Last Refilled: [facility] [address] [place] [address] Recent Visits Date Type Provider Dept 11/24/23 Office Visit Elyse Lewis [employer] FINISH[employer] [facility] 09/24/23 Office Visit Elyse Lewis [employer]AT FINISHER [facility] 09/18/23 Office Visit Elyse Lewis [employer]AT FINISHER [facility] 07/23/23 Office Visit Elyse Lewis, [employer] FINISHER [facility] 06/18/23 Office Visit Elyse Lewis [employer]LOAT FINISHER [facility] 05/04/23 Office Visit Elyse Lewis [employer] FINISHER [facility] 02/26/23 Office Visit Elyse Lewis [employer] FINISHER [facility] Showing recent visits within past 540 days with a meds authorizing provider and meeting all other requirements Future Appointments Date Type Provider Dept 03/28/24 Appointment Elyse Lewis FNP [facility] Showing future appointments within next 150 days with a meds authorizing provider and meeting all other requirements tirzepatide 5 mg/0.5 mL subcutaneous injection pem Possible duplicate: Hover to review recent actions on this medication Sig: inject 5 mg under the skin weekly. Disp: 6 mL Refills: 0 Start: 12/14/2023 Class: eRX Non-formulary For: Type 2 diabetes mellitus without complication, without long-term current use of insulin Last ordered: 1 week ago (12/08/2023) by MEL Driscoll Off-Protocol Bgtqwr6212/14/2023 07:29 PM Protocol Details Medication not assigned to a protocol, forward to provider. Valid encounter within last 12 months To be filled at: [facility] [address] [place] [address] Ivon Mobley MA [facility] 2023-12-08 08:11:45 Images from the original note were not included. Requested Renewals tirzepatide 5 mg/0.5 mL subcutaneous injection Sig: inject 5 mg under the skin weekly. Disp: 6 mL Refills: 0 Start: 12/07/2023 Class: eRX For: Type 2 diabetes mellitus without complication, without long-term current use of insulin Last ordered: 2 months ago (09/24/2023) by MEL Driscoll Off-Protocol Xtpjaj7212/07/2023 08:12 PM Protocol Details Medication not assigned to a protocol, forward to provider. Valid encounter within last 12 months To be filled at: [facility] [address] [place] [address] Recent Visits Date Type Provider Dept 11/24/23 Office Visit Elyse Lewis [employer] FINISHER [facility] 09/24/23 Office Visit Elyse Lewis [employer] FINISHER [facility] 09/18/23 Office Visit Elyse Lewis [employer] FINISHER [facility] 07/23/23 Office Visit Elyse Lewis, [employer] FINISHER [facility] 06/18/23 Office Visit Elyse Lewis [employer] FINISHER [facility] 05/04/23 Office Visit Elyse Lewis [employer]LO[employer] FINISHER [facility] 02/26/23 Office Visit Elyse Lewis [employer] FINISHER [facility] Showing recent visits within past 540 days with a meds authorizing provider and meeting all other requirements Future Appointments Date Type Provider Dept 03/28/24 Appointment Elyse Lewis FNP [facility] Showing future appointments within next 150 days with a meds authorizing provider and meeting all other requirements Diana Kramer LVN [facility] 2023-12-08 08:11:25 Images from the original note were not included. Requested Renewals polymyxin B sulf-trimethoprim 10,000 unit- 1 mg/mL ophthalmic drops Sig: Place 1 Drop in right eye every 4 (four) hours. Disp: 10 mL Refills: 0 Start: 12/07/2023 Class: eRX For: Blepharitis of right upper eyelid, unspecified type Last ordered: 2 months ago (09/24/2023) by MEL Driscoll Off-Protocol Pokggz5512/07/2023 08:11 PM Protocol Details Medication not assigned to a protocol, forward to provider. Valid encounter within last 12 months To be filled at: [id number] - [place], [place] - [address] Recent Visits Date Type Provider Dept 11/24/23 Office Visit Elyse Lewis [employer] FINISHER [facility] 09/24/23 Office Visit Elyse Lewis, B[employer] FLO[employer] FINISHER [facility] 09/18/23 Office Visit Joshua Elyse, [employer] FINISHER [facility] 07/23/23 Office Visit Ayde Lewisthia, B[employer] FINISHER [facility] 06/18/23 Office Visit Ayde Lewisthia, B[employer] FINISHER [facility] 05/04/23 Office Visit Joshua Elyse [employer] FINISHER [facility] 02/26/23 Office Visit Ayde Lewisthia, [employer] FINISHER [facility] Showing recent visits within past 540 days with a meds authorizing provider and meeting all other requirements Future Appointments Date Type Provider Dept 03/28/24 Appointment Joshua TIA PrescottP [facility] Showing future appointments within next 150 days with a meds authorizing provider and meeting all other requirements Diana Kramer LVN [facility] 2023-11-24 11:30:00 Images from the original note were not included. Venipuncture collection performed by clean technique on the left anticubitus. Total of 1 attempts were made. Slight pressure and a bandage/dressing were applied to the site(s). The patient experienced no complications. The following specimens were processed according to instructions and sent to [facility] laboratories per lab order on 11/24/2023 : LT BLUE SST 1 RED LAV PPT DK GREEN (LiHep) DK GREEN (SodH) EMMANUEL DK BLUE (K2) DK BLUE (S) ACD Blood Culture NIPT/NTD [facility] 2023-11-12 17:53:37 noted T [facility] 2023-11-12 08:39:25 Spoke with patient she stated that her grandson came home with diarrhea and then she got diarrhea. She suffered with it for 5 days. She started to take Imodium and Pepto and symptoms subsided. She stopped the OTC meds and the diarrhea came back and symptoms had worsened. Patient report that stools are liquid and green. Advised patient to stay hydrated and to seek evaluation in the ED for treatment. Patient voiced understanding. Corinne Nelson RN [facility] 2023-11-12 08:01:12 Darshana Frederick is a 53 year old female Patient calling in requesting a call from clinic for advice. She states she's been having diarrhea for about a week. She states it lasted 5 days and got better, but has not returned 2 days ago and its green. Please advise [phone] (home) Hermelinda Phillips [facility] 2023-11-07 07:50:18 Please go to urgent care or come into clinic with acute issues. Likely gastroenteritis, hydrate often in the interim. [facility] 2023-11-05 08:39:13 Last Refilled: Disp Refills Start End BAILEY levothyroxine (SYNTHROID) 50 mcg tablet 90 tablet 0 08/03/2023 -- -- Sig: Take 1 tablet by mouth every morning. BRAND MEDICALLY NECESSARY. Discontinue levothyroxine 75mcg. Sent to pharmacy as: levothyroxine 50 mcg tablet (Synthroid) Class: eRX Route: Oral Order: [id number] Date/Time Signed: 08/03/2023 07:49 E-Prescribing Status: Receipt confirmed by pharmacy (08/03/2023 7:49 AM CDT) Recent Visits Date Type Provider Dept 09/24/23 Office Visit Elyse Lewis [employer] FINISHER [facility] 09/18/23 Office Visit Elyse Lewis [employer]LO[employer] FINISHER [facility] 07/23/23 Office Visit Elyse Lewis [employer] FINISHER [facility] 06/18/23 Office Visit Elyse Lewis [employer]LOAT FINISHER [facility] 05/04/23 Office Visit Elyse Lewis [employer]AT FINISHER [facility] 02/26/23 Office Visit Elyse Lewis [employer] FINISHER [facility] Showing recent visits within past 540 days with a meds authorizing provider and meeting all other requirements Future Appointments Date Type Provider Dept 03/28/24 Appointment Elyse Lewis FNP [facility] Showing future appointments within next 150 days with a meds authorizing provider and meeting all other requirements Tracey Howell [facility] 2023-09-23 08:57:01 Noted. [facility] 2023-09-22 16:24:18 Patient informed and given ER precautions. Pt stated she was currently only experiencing hives. Pt schedule for 09/23 @ 3:00 with Joshua. Ivon Mobley MA [facility] 2023-09-22 13:35:13 Please STOP medication and follow up in clinic for alternative EMIL. Staff please facilitate office visit. [facility] 2023-09-22 11:34:43 Please review and advise. Lazara Alves RN [facility] 2023-09-22 10:48:39 Message re-routed to correct clinic. Cynthia Junior RN [facility] 2023-09-22 10:41:48 Darshana Frederick is a 53 year old female [phone] (home) Pt states that she believes that tirezepatide 5 mg that every time she does her injection that she breaks out in a rash or hive its round and itchy and red She is due for a refill , [facility] [address] [place] [address] Naila Mercado [facility] 2023-09-18 15:30:00 Images from the original note were not included. Venipuncture collection performed by clean technique on the right anticubitus. Total of 1 attempts were made. Slight pressure and a bandage/dressing were applied to the site(s). The patient experienced no complications. The following specimens were processed according to instructions and sent to [facility] laboratories per lab order on 09/18/2023 : LT BLUE SST 2 RED LAV 1 PPT DK GREEN (LiHep) DK GREEN (SodH) EMMANUEL DK BLUE (K2) DK BLUE (S) ACD Blood Culture NIPT/NTD Patient has been identified by and name and was provided with cup, antiseptic towelette, and clean catch instructions. 1 urine specimen(s) sent. Unpreserved 1 Urine Culture Aptima tube Other urine [facility] 2023-08-11 13:13:20 Refill sent to [facility] 2023-08-11 12:39:03 Darshana Frederick is a 53 year old female Patient is calling in regards of the monjuro, she states that this is usually mailed from the [facility] outpatient pharmacy and not at [facility] or any other pharmacy, please call pt to ensure medication got sent to [facility] Outpatient pharmacy [facility] - [address] [place] [address] Mitch Galloway [facility] 2023-08-10 13:33:19 Images from the original note were not included. Requested Renewals tirzepatide 5 mg/0.5 mL subcutaneous injection Sig: inject 5 mg under the skin weekly. Disp: 6 mL Refills: 0 Start: 08/10/2023 Class: eRX For: Type 2 diabetes mellitus without complication, without long-term current use of insulin Last ordered: 1 month ago (06/18/2023) by MEL Driscoll Rx #: [id number] Off-Protocol [id number]/10/2023 08:50 AM Protocol Details Medication not assigned to a protocol, forward to provider. Valid encounter within last 12 months To be filled at: [facility] [address] [place] [address] Recent Visits Date Type Provider Dept 07/23/23 Office Visit Elyse Lewis FNP [facility] 06/18/23 Office Visit Elyse Lewis FNP [facility] 05/04/23 Office Visit Elyse Lewis FNP [facility] 02/26/23 Office Visit Elyse Lewis FNP [facility] 03/06/22 Office Visit Elyse Lewis FNP [facility] Showing recent visits within past 540 days with a meds authorizing provider and meeting all other requirements Future Appointments Date Type Provider Dept 09/18/23 Appointment Elyse Lewis FNP [facility] Showing future appointments within next 150 days with a meds authorizing provider and meeting all other requirements Diana Kramer LVN [facility] 2023-08-03 07:47:13 Last Refilled: Disp Refills Start End BAILEY levothyroxine (SYNTHROID) 50 mcg tablet 90 tablet 0 05/04/2023 -- No Sig: Take 1 tablet by mouth every morning. BRAND MEDICALLY NECESSARY. Discontinue levothyroxine 75mcg. Sent to pharmacy as: levothyroxine 50 mcg tablet (Synthroid) Class: eRX Route: Oral Order: [id number] Date/Time Signed: 05/04/2023 15:50 E-Prescribing Status: Receipt confirmed by pharmacy (05/04/2023 3:51 PM CDT) Notes: office visit Assessment/Plan Acquired hypothyroidism Comment: chronic Plan: Thyroid Stimulating Hormone, Free T4, levothyroxine (SYNTHROID) 50 mcg tablet Problem acuity: Chronic. Risk: Low if well-controlled. Progression: Due for reassessment. The patient should continue the current thyroid hormone replacement dose for now. I will adjust the dose if needed based on the patient's TFTs. To ensure optimal absorption, the patient should take his/her thyroid medication in the morning on an empty stomach with water at least 30mins-1hr prior to other medications and food. when in need of refills, request at least 7 days before you run out to prevent being out of med for long as this can affect lab value and can cause questionable efficacy of dose of medication. Recent Visits Date Type Provider Dept 07/23/23 Office Visit Elyse Lewis FNP [facility] 06/18/23 Office Visit Elyse Lewis FNP [facility] 05/04/23 Office Visit Elyse Lewis FNP [facility] 02/26/23 Office Visit Elyse Lewis FNP [facility] 03/06/22 Office Visit Elyse Lewis FNP [facility] Showing recent visits within past 540 days with a meds authorizing provider and meeting all other requirements Future Appointments Date Type Provider Dept 09/18/23 Appointment Elyse Lewis, MEL [facility] Showing future appointments within next 150 days with a meds authorizing provider and meeting all other requirements 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 on 05/05/2023 Component Date Value CHOL 05/05/2023 210 (H) HDL 05/05/2023 68 HDLC RATIO 05/05/2023 3.1 TRIG 05/05/2023 76 LDL CHOL 05/05/2023 127 VLDL 05/05/2023 15 TSH 05/05/2023 1.94 FREE T4 05/05/2023 1.08 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 on 02/26/2023 Component Date Value VIT D 25OH 02/26/2023 14 (L) TSH 02/26/2023 10.20 (H) HGB A1C 02/26/2023 6.5 (H) FREE T4 02/26/2023 0.73 (L) Office Visit on 02/26/2023 Component Date Value WBC 02/26/2023 7.17 RBC 02/26/2023 4.41 HGB 02/26/2023 13.4 HCT 02/26/2023 41.3 MCV 02/26/2023 93.7 MCH 02/26/2023 30.4 MCHC 02/26/2023 32.4 RDW-SD 02/26/2023 48.7 RDW-CV 02/26/2023 14.2 PLT 02/26/2023 198 MPV 02/26/2023 11.7 NRBC/100 WBC 02/26/2023 0.0 NRBC x10 3 02/26/2023 <0.01 GRAN MAT (NEUT) % 02/26/2023 56.3 IMM GRAN % 02/26/2023 0.40 LYMPH % 02/26/2023 36.7 MONO % 02/26/2023 3.9 EOS % 02/26/2023 1.7 BASO % 02/26/2023 1.0 GRAN MAT x10 3 (ANC) 02/26/2023 4.04 IMM GRAN x10 3 02/26/2023 0.03 LYMPH x10 3 02/26/2023 2.63 MONO x10 3 02/26/2023 0.28 (L) EOS x10 3 02/26/2023 0.12 BASO x10 3 02/26/2023 0.07 NA 02/26/2023 139 K 02/26/2023 4.0 CL 02/26/2023 103 CO2 TOTAL 02/26/2023 29 AGAP 02/26/2023 7 BUN 02/26/2023 9 GLUCOSE 02/26/2023 132 (H) CREATININE 02/26/2023 0.72 TOTAL BILI 02/26/2023 0.6 CALCIUM 02/26/2023 9.3 T PROTEIN 02/26/2023 7.6 ALBUMIN 02/26/2023 4.0 ALK PHOS 02/26/2023 73 ALTv 02/26/2023 23 AST(SGOT) 02/26/2023 24 eGFR 02/26/2023 102.0 Corinne Nelson RN [facility] 2023-07-20 15:58:17 Please review, complete, and sign if appropriate. [facility] 2023-07-20 14:28:27 Copied from [facility] #[id number]. Topic: Clinical - Referral >> Jul 20, 2023 2:26 PM Patient [employer] wrote: Darshana Frederick is a 53 year old female Patient is requesting a referral to: Dept: Podiatry Reason for referral: has diabetes and issues with her toe Duration of problem: NA Internal / External referral: Internal Name of provider / location patient requesting: [facility] - Podiatry Phone number: NA Fax number: NA Appt already scheduled?: NA If yes, date of appt.: NA - needs referral from PCP first , please advise. Doni Sultana [facility] 2023-06-18 14:30:00 Addended by: JOSHUA SUNG, B[employer] F[employer]AT FINISHERELYSE DOMINGO on: 06/18/2023 05:06 PM Modules accepted: Level of Service T [facility] [employer] 2023-06-15 13:15:37 Add to my schedule this [facility] [employer] 2023-06-15 07:53:34 Images from the original note were not included. Notes: 05/19/23 Last Refilled: [facility] [address] [place] [address] - [address] [place] [address] Recent Visits Date Type Provider Dept 05/04/23 Office Visit Elyse Lewis FNP [facility] 02/26/23 Office Visit Elyse Lewis FNP [facility] 03/06/22 Office Visit Elyse Lewis FNP [facility] Showing recent visits within past 540 days with a meds authorizing provider and meeting all other requirements Future Appointments Date Type Provider Dept 06/29/23 Appointment Elyse Lewis FNP [facility] Showing future appointments within next 150 days with a meds authorizing provider and meeting all other requirements tirzepatide 2.5 mg/0.5 mL subcutaneous injection Sig: inject 2.5 mg under the skin weekly. Disp: 2 mL Refills: 0 Start: 06/15/2023 Class: eRX Non-formulary For: Obesity (BMI 30-39.9); Type 2 diabetes mellitus without complication, without long-term current use of insulin Last ordered: 1 month ago (05/04/2023) by MEL Driscoll Last dispensed: 05/19/2023 Rx #: [id number] Off-Protocol [id number]/15/2023 06:49 AM Protocol Details Medication not assigned to a protocol, forward to provider. Valid encounter within last 12 months To be filled at: [facility] - [address] [place] [address] Ivon Mobley MA [facility] 2023-06-03 16:23:59 Advised patient that a 90 day was sent to [facility] pharmacy on 05/04/2023. Disp Refills Start End BAILEY levothyroxine (SYNTHROID) 50 mcg tablet 90 tablet 0 05/04/2023 -- No Sig: Take 1 tablet by mouth every morning. BRAND MEDICALLY NECESSARY. Discontinue levothyroxine 75mcg. Sent to pharmacy as: levothyroxine 50 mcg tablet (Synthroid) Class: eRX Route: Oral Order: [id number] Date/Time Signed: 05/04/2023 15:50 E-Prescribing Status: Receipt confirmed by pharmacy (05/04/2023 3:51 PM CDT) Medication Administration Instructions BRAND MEDICALLY NECESSARY. Discontinue levothyroxine 75mcg. Associated Diagnoses Acquired hypothyroidism - Primary Order Associated Providers Name NPI Ordering Provider Elyse Lewis FNP [[id number]] [id number] Authorizing Provider Elyse Lewis FNP [[id number]] [id number] Encounter Supervising Provider Jeff Roberts MD [[id number]] [id number] Pharmacy [address] [facility] 2023-06-03 15:56:56 Copied from [facility] #[id number]. Topic: Clinical - Order >> Jun 03, 2023 3:55 PM Patient [employer] wrote: Darshana Frederick is a 53 year old female Pt is calling requesting a refill on her levothyroxine (SYNTHROID) 50 mcg tablet . Pts states she did not get a 90 day supply on 05/03. Pt is stating that she only received a 30 day supply. Please advise. Pt is out of medication. [address] Carla Abel [facility] 2023-06-01 14:02:21 Copied from [facility] #[id number]. Topic: Clinical - Medical Advice >> Jun 01, 2023 1:53 PM Patient [employer] wrote: Patient is requesting refills for losartan 25 mg tablet and rosuvastatin 5 mg tablet. Patient is completely out of both medications due to the fact that she was taking 2 pills every day of both medications instead of one a day as the bottle suggested. Patient was unaware she was only supposed to take one pill of each a day. [facility] 2023-05-05 10:42:09 Patient has been advised of message per Elyse Lewis. T [facility] 2023-05-05 09:30:00 Images from the original note were not included. Venipuncture collection performed by clean technique on the left anticubitus. Total of 1 attempts were made. Slight pressure and a bandage/dressing were applied to the site(s). The patient experienced no complications. The following specimens were processed according to instructions and sent to [facility] laboratories per lab order on 05/05/2023 : LT BLUE SST 1 RED LAV PPT DK GREEN (LiHep) DK GREEN (SodH) EMMANUEL DK BLUE (K2) DK BLUE (S) ACD Blood Culture NIPT/NTD T [facility] 2023-05-05 08:55:15 Staff, please let patient know, I have ordered for metformin to be taken twice per day, this must be done before insurance would consider her for mounjaro and alike. See message below from the clinical pharmacy team. Medication send to her local pharmacy. [facility] 2023-05-05 08:23:05 Please review and advise Elli Bernabe MA [facility] 2023-05-05 08:13:04 Isaelmarnie, Before insurance will cover the Deon, insurance requires a 14 day trial of an oral antidiabetic agent. After she completes the trial, I can submit for the prior authorization. Please let me know if there are any questions or concerns. Thank you Lazara Collins [facility] 2023-05-04 15:30:00 Addended by: MEL LEWIS DNP-ELYSE PENG on: 05/05/2023 08:55 AM Modules accepted: Orders T [facility] 2023-02-26 16:00:00 Images from the original note were not included. Venipuncture collection performed by clean technique on the left anticubitus. Total of 1 attempts were made. Slight pressure and a bandage/dressing were applied to the site(s). The patient experienced no complications. The following specimens were processed according to instructions and sent to [facility] laboratories per lab order on today: LT BLUE SST 2 RED LAV 2 PPT DK GREEN (LiHep) DK GREEN (SodH) EMMANUEL DK BLUE (K2) DK BLUE (S) ACD Blood Culture NIPT/NTD Patient not fasting will be back another day [facility]
--- NOTE | 2024-05-04 20:57 | EDPHYS ---
Physician Documentation [facility] Name: Melissa Man Age: 53 yrs Sex: Female : 1970 Arrival Date: 05/04/2024 Time: 20:26 Bed IW4 Private MD: ED Physician Huang Vazquez HPI: 05/04 20:46 This 53 yrs old Black Female presents to ER via Ambulatory with complaints of Rash. sp4 Historical: - Allergies: 20:42 PENICILLINS; cm10 - PMHx: 20:42 fatty liver; Hypothyroidism; UTI; cm10 - PSHx: 20:42 section; cm10 - Immunization history:: Adult Immunizations up to date. - Infectious Disease History:: Denies. - Social history:: Smoking status: Patient denies any tobacco usage or history of. Vital Signs: 20:39 BP 121 / 94; Pulse 85; Resp 15; Temp 97.9(O); Pulse Ox 100% on R/A; Weight 63.96 kg; cm10 Height 5 ft. 2 in. ; 20:39 Pain 0/10; cm10 20:39 Body Mass Index 25.79 (63.96 kg, 157.48 cm) cm10 20:39 Pain Scale: Adult cm10 MDM: 20:56 Medical Screening Exam initiated sp4 Administered Medications: No medications were administered Disposition Summary: 05/04/24 20:56 Discharge Ordered Notes: Location: Home sp4 Problem: new sp4 Symptoms: have improved sp4 Condition: Stable sp4 Diagnosis - Acute adverse reaction to glucocorticoids, acute depression secondary to sp4 glucocorticoids Followup: sp4 - With: Private Physician - When: 7 - 10 days - Reason: Recheck today's complaints Discharge Instructions: - Discharge Summary Sheet sp4 - Medical Screening Exam sp4 Forms: - Patient Portal Instructions sp4 Signatures: Huang Vazquez MD MD sp4 Elisa Israel RN RN cm10
--- NOTE | 2024-05-04 20:57 | ER ---
Nurse's Notes [facility] Name: Melissa Man Age: 53 yrs Sex: Female : 1970 Arrival Date: 05/04/2024 Time: 20:26 Bed IW4 Private MD: Diagnosis: Acute adverse reaction to glucocorticoids, acute depression secondary to glucocorticoids Presentation: 05/04 20:39 Chief complaint: Patient states: STARTED STEROID DOSE PACK YESTERDAY FOR RASH ON FACE cm10 AND PATIENT STATES THAT SHE IS FEELING DIZZY AND "OFF". Coronavirus screen: Client denies travel out of the [place] in the last 14 days. Ebola Screen: Patient denies travel to an Ebola-affected area in the 21 days before illness onset. Initial Sepsis Screen: Does the patient meet any 2 criteria? No. Patient's initial sepsis screen is negative. Does the patient have a suspected source of infection? No. Patient's initial sepsis screen is negative. Risk Assessment: Do you want to hurt yourself or someone else? Patient reports no desire to harm self or others. Onset of symptoms was May 04, 2024. 20:39 Method Of Arrival: Ambulatory cm10 20:39 Acuity: LISETTE 4 cm10 Triage Assessment: 20:42 General: Appears in no apparent distress. comfortable, Behavior is calm, cooperative. cm10 Neuro: No deficits noted. Level of Consciousness is awake, alert, obeys commands, Oriented to person, place, time, situation, Appropriate for age. Respiratory: No deficits noted. Airway is patent Respiratory effort is even, unlabored, Respiratory pattern is regular, symmetrical. Historical: - Allergies: 20:42 PENICILLINS; cm10 - PMHx: 20:42 fatty liver; Hypothyroidism; UTI; cm10 - PSHx: 20:42 section; cm10 - Immunization history:: Adult Immunizations up to date. - Infectious Disease History:: Denies. - Social history:: Smoking status: Patient denies any tobacco usage or history of. Screenin:54 [facility] ED Fall Risk Assessment (Adult) History of falling in the last 3 months, cm10 including since admission No falls in past 3 months (0 pts) Confusion or Disorientation No (0 pts) Intoxicated or Sedated No (0 pts) Impaired Gait No (0 pts) Mobility Assist Device Used No (0 pt) Altered Elimination No (0 pt) Score/Fall Risk Level 0 - 2 = Low Risk Oriented to surroundings, Maintained a safe environment, Hourly rounding (assess needs \\T\\ fall precautionary measures) done. Abuse screen: Denies threats or abuse. Denies injuries from another. Nutritional screening: No deficits noted. Tuberculosis screening: No symptoms or risk factors identified. Vital Signs: 20:39 BP 121 / 94; Pulse 85; Resp 15; Temp 97.9(O); Pulse Ox 100% on R/A; Weight 63.96 kg; cm10 Height 5 ft. 2 in. ; 20:39 Pain 0/10; cm10 20:39 Body Mass Index 25.79 (63.96 kg, 157.48 cm) cm10 20:39 Pain Scale: Adult cm10 ED Course: 20:31 Patient arrived in ED. gm2 20:42 Triage completed. cm10 20:42 Arm band placed on right wrist. Patient placed in an exam room, on a stretcher. cm10 20:46 Huang Vazquez MD is Attending Physician. sp4 20:55 Patient has correct armband on for positive identification. Provided Education on: ER cm10 PROCESS AND PROCEDURES.. 20:55 No provider procedures requiring assistance completed. Patient did not have IV access cm10 during this emergency room visit. Administered Medications: No medications were administered Medication: 20:54 VIS not applicable for this client. cm10 Outcome: 20:56 Discharge ordered by . sp4 21:12 Patient left the ED. cm10 Signatures: Huang Vazquez MD MD sp4 Elisa Israel RN RN 10 Steff[address] [facility]
[2024-05-05 01:37] VITALS: BP 121/94; TEMP 97.9; O2SAT 100
== END 2024-05-04 21:12 | disposition home or self-care (01) ==
LOC: ER 20:26
DX: R21 Rash and other nonspecific skin eruption (principal); T38.0X5A Adverse effect of glucocorticoids and synthetic analogues, initial encounter; F32.A Depression, unspecified